=== PATIENT | male | born 1965 | race Caucasian/White ===

== ENCOUNTER 2019-04-20 13:27 | Inpatient (IN) | payer SELFPAY ==
[2019-04-20] VITALS (36 sets, daily range): BP systolic 104–160; BP diastolic 70–95; PULSE 52–62; RESP 16–18; TEMP 36.7–36.8; O2SAT 95–100
--- NOTE | 2019-04-20 13:49 | DI.CT_ITS ---
SYMPTOMS/DIAGNOSIS: LEFT LOWER ABDOMINAL PAIN CT OF THE ABDOMEN AND PELVIS: There are no prior comparison exams. Images were performed from the lung bases through the ischial tuberosities after IV and without oral contrast. There is a peripherally enhancing low density collection within the wall of the rectum, suspicious for a small abscess. It measures approximately 1.4 x 1.0 x 1 cm. It is eccentric toward the left. There are diverticula in the sigmoid colon, but no evidence of diverticulitis. The appendix is unremarkable. There is no small or large bowel dilatation. There is no free air or free fluid. No adenopathy is seen. There is calcification in the prostate, which appears slightly enlarged. The bladder is unremarkable. The lung bases are clear. The liver, gallbladder, spleen, pancreas, adrenals and kidneys appear normal. There is some calcification in the abdominal aorta, which is normal in diameter. There are old fracture deformities seen in the pubic rami bilaterally. Degenerative changes are seen in the spine, greatest at L5-S1. IMPRESSION: Intramural abscess of the rectum.
--- NOTE | 2019-04-20 13:51 | W.ED.GENAD ---
Discharge Plan Disposition Patient Disposition: [facility] INPATIENT Condition: Stable Discharge Details Chief Complaint: GenMedical Clinical Impression: Abdominal abscess Primary Care Provider: None,None ED Provider: Sree Conley Medical Decision Making 53 yo male who denies chronic medical problems comes in with complaints of abdominal pain. he states he started with a stomach ache Thursday morning. Has had a mild headache since and the pain in his abdomen has moved to the llq. Intermittent nausea as well. Denies fevers or vomit. He has painin the llq without guarding or rebound on exam, no pain elsewhere. Suspect colitis vs diverticulitis, will obtain lab work vs imaging. He states his headache is mild, inermittently will slowly worsen but not worse of his life so unlikely sah so do not feel head imaging indicated. No fevers or meinigismus to suggest qa analyst infection at this time. normal eye exam so doubt glaucoma labs unremarkable, does have an abscess on CT. Spoke [facility] Dr. Lopez who will admit the patient Differential Diagnosis gastroenteritis, colitis, diverticulitis Medical Records Medical records reviewed: Yes I reviewed the patient's medical records. Imaging Data Radiologic Study: Attestation: I personally reviewed and interpreted this imaging study as follows: Imaging: CT Scan Radiologist's impression: T OF THE ABDOMEN AND PELVIS: There are no prior comparison exams. Images were performed from the lung bases through the ischial tuberosities after IV and without oral contrast. There is a peripherally enhancing low density collection within the wall of the rectum, suspicious for a small abscess. It measures approximately 1.4 x 1.0 x 1 cm. It is eccentric toward the left. There are diverticula in the sigmoid colon, but no evidence of diverticulitis. The appendix is unremarkable. There is no small or large bowel dilatation. There is no free air or free fluid. No adenopathy is seen. There is calcification in the prostate, which appears slightly enlarged. The bladder is unremarkable. The lung bases are clear. The liver, gallbladder, spleen, pancreas, adrenals and kidneys appear normal. There is some calcification in the abdominal aorta, which is normal in diameter. There are old fracture deformities seen in the pubic rami bilaterally. Degenerative changes are seen in the spine, greatest at L5-S1. IMPRESSION: Intramural abscess of the rectum. Lab Data Lab results reviewed: Yes I reviewed the patient's lab results. HPI General Mode of arrival: ambulatory. Date/Time Provider Initiated Documentation: 04/20/19 13:37. Limitations to Documentation: no limitations. Information obtained by: patient. History of Present Illness 53 year old M presents to the emergency department with the chief complaint of abdominal pain, described as moderate, with intensity rated at 5. Quality is described as stabbing and aching, and is localized to the abdomen. Patient reports no radiation. Patient started experiencing this day(s) (3) and it has been constant. No relieving factors improve symptom(s), No exacerbating factors reported . Patient notes other (nausea). Patient did receive the following treatments prior to arrival, NSAID Related Data Allergies Allergy/AdvReac Type Severity Reaction Status Date / Time No Known Allergies Allergy Unverified 04/20/19 13:37 General Stated Complaint: GenMedical FRANK: 3 Review of Systems Review of Systems All systems reviewed & are unremarkable except as noted in HPI and below Constitutional Denies chills, Denies fever(s) and Denies weakness Cardiovascular Denies chest pain and Denies dyspnea Respiratory Denies cough and Denies dyspnea Gastrointestinal Denies vomiting Genitourinary Denies dysuria Neurologic Denies weakness PFSH Social History Smoking/Tobacco Use Status: Current every day Tobacco Type: cigarettes Alcohol Intake: current Alcohol Intake frequency: a few times a week Alcohol type: beer Drug use: Never Do you feel safe at home: Yes Exam Const General: no acute distress Orientation: alert HENMT Head: normal to inspection Ears: external ears normal General nose exam: external nose normal Mouth: moist mucous membranes Eyes General: appearance normal, both eyes and all related structures Neck Neck: normal visual inspection Resp Effort & Inspection: normal respiratory effort and able to speak in complete sentences Cardio Rate: regular rate GI Palpation: soft Skin General skin exam: no rashes or lesions noted Neuro General: alert and oriented x3 Extrem General: normal to inspection Psych Mental Status: mental status grossly normal Course Vital Signs Temperature 36.7 C 04/20/19 13:32 Pulse 62 04/20/19 13:32 Respiratory Rate 18 04/20/19 13:32 Blood Pressure 160/95 H 04/20/19 13:32 Pulse Oximetry 98 04/20/19 13:32 Temperature 36.7 C 04/20/19 13:32 Temperature Source Skin 04/20/19 13:32 Pulse 62 04/20/19 13:32 Respiratory Rate 18 04/20/19 13:32 Respiratory Effort Non-Labored 04/20/19 13:38 Blood Pressure 160/95 H 04/20/19 13:32 Blood Pressure Position Supine 04/20/19 13:32 Pulse Oximetry 98 04/20/19 13:32 Oxygen Delivery Method Room Air 04/20/19 13:32 Oxygen Flow Rate 0 04/20/19 13:32 Pain Level 4 04/20/19 13:32
--- NOTE | 2019-04-20 13:55 | ED.GENADUL_ITS ---
Discharge Plan Disposition Patient Disposition: [facility] INPATIENT Condition: Stable Discharge Details Chief Complaint: GenMedical Clinical Impression: Abdominal abscess Primary Care Provider: None,None ED Provider: Sree Conley Medical Decision Making 53 yo male who denies chronic medical problems comes in with complaints of abdominal pain. he states he started with a stomach ache Thursday morning. Has had a mild headache since and the pain in his abdomen has moved to the llq. Intermittent nausea as well. Denies fevers or vomit. He has painin the llq without guarding or rebound on exam, no pain elsewhere. Suspect colitis vs diverticulitis, will obtain lab work vs imaging. He states his headache is mild, inermittently will slowly worsen but not worse of his life so unlikely sah so do not feel head imaging indicated. No fevers or meinigismus to suggest big data platform architect infection at this time. normal eye exam so doubt glaucoma labs unremarkable, does have an abscess on CT. Spoke [facility] Dr. Lopez who will admit the patient Differential Diagnosis gastroenteritis, colitis, diverticulitis Medical Records Medical records reviewed: Yes I reviewed the patient's medical records. Imaging Data Radiologic Study: Attestation: I personally reviewed and interpreted this imaging study as follows: Imaging: CT Scan Radiologist's impression: T OF THE ABDOMEN AND PELVIS: There are no prior comparison exams. Images were performed from the lung bases through the ischial tuberosities after IV and without oral contrast. There is a peripherally enhancing low density collection within the wall of the rectum, suspicious for a small abscess. It measures approximately 1.4 x 1.0 x 1 cm. It is eccentric toward the left. There are diverticula in the sigmoid colon, but no evidence of diverticulitis. The appendix is unremarkable. There is no small or large bowel dilatation. There is no free air or free fluid. No adenopathy is seen. There is calcification in the prostate, which appears slightly enlarged. The bladder is unremarkable. The lung bases are clear. The liver, gallbladder, spleen, pancreas, adrenals and kidneys appear normal. There is some calcification in the abdominal aorta, which is normal in diameter. There are old fracture deformities seen in the pubic rami bilaterally. Degenerative changes are seen in the spine, greatest at L5-S1. IMPRESSION: Intramural abscess of the rectum. Lab Data Lab results reviewed: Yes I reviewed the patient's lab results. HPI General Mode of arrival: ambulatory . Date/Time Provider Initiated Documentation: 04/20/19 13:37 . Limitations to Documentation: no limitations . Information obtained by: patient . History of Present Illness 53 year old M presents to the emergency department with the chief complaint of abdominal pain, described as moderate, with intensity rated at 5. Quality is described as stabbing and aching, and is localized to the abdomen. Patient reports no radiation. Patient started experiencing this day(s) (3) and it has been constant. No relieving factors improve symptom(s), No exacerbating factors reported . Patient notes other (nausea). Patient did receive the following treatments prior to arrival, NSAID Related Data Allergies Allergy/AdvReac Type Severity Reaction Status Date / Time No Known Allergies Allergy Unverified 04/20/19 13:37 General Stated Complaint: GenMedical FRANK: 3 Review of Systems Review of Systems All systems reviewed & are unremarkable except as noted in HPI and below Constitutional Denies chills, Denies fever(s) and Denies weakness Cardiovascular Denies chest pain and Denies dyspnea Respiratory Denies cough and Denies dyspnea Gastrointestinal Denies vomiting Genitourinary Denies dysuria Neurologic Denies weakness PFSH Social History Smoking/Tobacco Use Status: Current every day Tobacco Type: cigarettes Alcohol Intake: current Alcohol Intake frequency: a few times a week Alcohol type: beer Drug use: Never Do you feel safe at home: Yes Exam Const General: no acute distress Orientation: alert HENMT Head: normal to inspection Ears: external ears normal General nose exam: external nose normal Mouth: moist mucous membranes Eyes General: appearance normal, both eyes and all related structures Neck Neck: normal visual inspection Resp Effort & Inspection: normal respiratory effort and able to speak in complete sentences Cardio Rate: regular rate GI Palpation: soft Skin General skin exam: no rashes or lesions noted Neuro General: alert and oriented x3 Extrem General: normal to inspection Psych Mental Status: mental status grossly normal Course Vital Signs Temperature 36.7 C 04/20/19 13:32 Pulse 62 04/20/19 13:32 Respiratory Rate 18 04/20/19 13:32 Blood Pressure 160/95 H 04/20/19 13:32 Pulse Oximetry 98 04/20/19 13:32 Temperature 36.7 C 04/20/19 13:32 Temperature Source Skin 04/20/19 13:32 Pulse 62 04/20/19 13:32 Respiratory Rate 18 04/20/19 13:32 Respiratory Effort Non-Labored 04/20/19 13:38 Blood Pressure 160/95 H 04/20/19 13:32 Blood Pressure Position Supine 04/20/19 13:32 Pulse Oximetry 98 04/20/19 13:32 Oxygen Delivery Method Room Air 04/20/19 13:32 Oxygen Flow Rate 0 04/20/19 13:32 Pain Level 4 04/20/19 13:32
[2019-04-20] MEDS: Ondansetron 4 MG/2 ML VIAL IVP (14:15)
[2019-04-20] MEDS: Ketorolac 15 MG/ML VIAL IVP (14:15)
[2019-04-20] MEDS: Normal Saline 1,000 ML 1000 ML IV (14:17)
[2019-04-20 14:21] LABS: Abs Immature Grans 0.01 k/cumm (0.0-0.09); Absolute Basophil Count 0.02 k/cumm (0.0-0.2); Absolute Lymphocyte Count 2.12 k/cumm (1.2-3.4); Absolute Monocyte Count 0.49 k/cumm (0.11-0.7); Basophils % 0.3; HCT 46.3 % (40.0-50.0); HGB 15.8 g/dL (13.5-17.5); Immature Grans % 0.1; Lymphocytes % 31.5; Mean Corp. HGB Concentration 34.1 g/dL (32.0-36.0); Mean Corpuscular Hemoglobin 32.2 pg (27.0-33.0); Mean Corpuscular Volume 94.3 fL (80-95); Mean Platelet Volume 9.7 fL (8.0-11.0); Monocytes % 7.3; Neutrophils % 57.8; Platelet Count 211 x1000/uL (130-400); RBC 4.91 m/cumm (4.50-6.00); White Blood Cell Count 6.74 k/cumm (4.4-10.8)
[2019-04-20 14:34] LABS: ALT 43 U/L (12-78); AST 27 U/L (15-37); Albumin 3.9 g/dL (3.4-5.0); Alkaline Phosphatase 104 U/L (46-116); Anion Gap 9.8 mmol/L (3-11); BUN 11 mg/dL (7-18); Bilirubin, Total 0.5 mg/dL (0.2-1.0); CO2 29.2 mmol/L (21.0-32.0); CREATININE 0.91 mg/dL (0.70-1.30); Calcium 9.2 mg/dL (8.5-10.1); Chloride 98 mmol/L (98-107); Glucose 97 mg/dL (70-100); Lipase 147 U/L (73-393); Potassium 3.9 mmol/L (3.5-5.1); Sodium 137 mmol/L (136-145); Total Protein 8.1 g/dL (6.4-8.2)
[2019-04-20] MEDS: Omnipaque 350 MG/ML 100 ML BTL IJ (14:46)
[2019-04-20 15:35] LABS: Bilirubin Negative (Negative); Blood Negative (Negative); Clarity Clear; Glucose Negative (Negative); Ketones Negative (Negative); Leukocyte Esterase Negative (Negative); Nitrite Negative (Negative); Specific Gravity <= 1.005 (1.005-1.025); Urobilinogen 0.2 EU/dL (Up TO 0.2)
[2019-04-20] MEDS: PIPERACILLIN/TAZO 4.5 GM in Normal Saline 100 ML IVPB (16:20)
--- NOTE | 2019-04-20 16:22 | W.PM.HP.N ---
Date of service: 04/20/19 Time of Service: 16:22 Assessment and Plan (1) Abscess of rectum: Current visit: Yes Status: Acute A\\ Small intramural abscess of distal sigmoid/ proximal rectum. Minimal inflammation and no free air. P\\ Admit for IV antibiotics and pain control Diet: Clear liquids over night then will advance to low fiber diet Activity: up ad elie DVT prophilaxis: SCD's Patient has never had a colonoscopy. Will need a colonoscopy in 6-8 weeks History of Present Illness Chief Complaint: ABdominal pain Consults Consult date: 04/20/19 Requesting physician: Sree Conley Narrative: Mr. Langford is a 53-year-old gentleman who came to the emergency department today complaining of left lower quadrant abdominal pain. He states the pain started about 3 days ago. He rates the pain at a 5 out of 10. It is dull with sometimes some stabbing pain. He has not had any diarrhea or constipation. He has had some nausea but no vomiting. He denies any fevers or chills. He is never had pain like this before. Work-up in the emergency department showed a normal CBC. His vitals were stable and he is afebrile. CT scan of the abdomen and pelvis was ordered. It was read as small rectal intramural abscess measuring 1.5 cm. Diverticulosis is noted without inflammation. I have reviewed the CT scan myself and I see the small abscess in the distal sigmoid colon/ rectum. There is no free air. CT ABDO/PELVIS: There are no prior comparison exams. Images were performed from the lung bases through the ischial tuberosities after IV and without oral contrast. There is a peripherally enhancing low density collection within the wall of the rectum, suspicious for a small abscess. It measures approximately 1.4 x 1.0 x 1 cm. It is eccentric toward the left. There are diverticula in the sigmoid colon, but no evidence of diverticulitis. The appendix is unremarkable. There is no small or large bowel dilatation. There is no free air or free fluid. No adenopathy is seen. There is calcification in the prostate, which appears slightly enlarged. The bladder is unremarkable. The lung bases are clear. The liver, gallbladder, spleen, pancreas, adrenals and kidneys appear normal. There is some calcification in the abdominal aorta, which is normal in diameter. There are old fracture deformities seen in the pubic rami bilaterally. Degenerative changes are seen in the spine, greatest at L5-S1. IMPRESSION: Intramural abscess of the rectum. Review of Systems Constitutional Denies fatigue, Denies fever(s), Denies headache(s) and Denies night sweats Eyes Denies change in vision ENT Denies headache(s) Cardiovascular Denies chest pain, Denies chest pain at rest, Denies rapid heart rate, Denies irregular heart rhythm, Denies claudication, Denies palpitations, Denies dyspnea and Denies dyspnea on exertion Respiratory Denies cough, Denies dyspnea and Denies dyspnea on exertion Gastrointestinal Reports as per HPI Genitourinary Denies hematuria and Denies dysuria Musculoskeletal Denies back pain and Denies limited range of motion Neurologic Denies headache(s) and Denies convulsions Endocrine Reports cold intolerance, Denies fatigue, Denies heat intolerance and Denies palpitations Hematologic/Lymphatic Denies easy bleeding, Denies easy bruising and Denies lymphadenopathy PFSH Medical History Abscess of rectum (Acute) Surgical History History of back surgery (Acute) Social History Smoking/Tobacco Use Status: Current every day Tobacco Type: cigarettes Smoking packs per day: 1 Alcohol Intake: current Alcohol Intake frequency: a few times a week Alcohol type: beer Drug use: Never Do you feel safe at home: Yes Meds Allergies Allergy/AdvReac Type Severity Reaction Status Date / Time No Known Allergies Allergy Unverified 04/20/19 13:37 Exam Const General: cooperative, comfortable and no acute distress Orientation: alert and oriented x3 HENMT Head: normocephalic and atraumatic Mouth: oral mucosae normal Teeth and gingiva: poor dentition Eyes Pupils: PERRL Neck Neck: supple Lymphatic: no lymphadenopathy noted Resp Effort & Inspection: normal respiratory effort Auscultation: clear to auscultation bilaterally Cardio Rate: regular rate Rhythm: regular rhythm Heart Sounds: no gallops, no murmurs and no rubs GI Inspection: normal to inspection Palpation: soft, no hepatosplenomegaly and tender (mild LLQ and suprapubic. No rebound or guarding) Rectal Exam: deferred Extrem General: no clubbing, cyanosis or edema Results Labs : 04/20/19 13:55 04/20/19 13:55 Laboratory Results - last 24 hr 04/20/19 04/20/19 04/20/19 13:55 13:55 15:21 WBC 6.74 RBC 4.91 Hgb 15.8 Hct 46.3 MCV 94.3 MCH 32.2 MCHC 34.1 RDW 13.0 Plt Count 211 MPV 9.7 Immature Gran % 0.1 Neutrophils % 57.8 Lymphocytes % 31.5 Monocytes % 7.3 Eosinophils % 3.0 Basophils % 0.3 Absolute Neutrophils 3.90 Absolute Lymphocytes 2.12 Absolute Monocytes 0.49 Absolute Eosinophils 0.20 Absolute Basophils 0.02 Sodium 137 Potassium 3.9 Chloride 98 Carbon Dioxide 29.2 Anion Gap 9.8 BUN 11 Creatinine 0.91 Estimated GFR/1.73 m2 >= 60.00 Glucose 97 Calcium 9.2 Total Bilirubin 0.5 AST 27 ALT 43 Alkaline Phosphatase 104 Total Protein 8.1 Albumin 3.9 Lipase 147 Urine Color Yellow Urine Clarity Clear Urine pH 6.0 Ur Specific [place] <= 1.005 Urine Protein Negative Urine Ketones Negative Urine Blood Negative Urine Nitrite Negative Urine Bilirubin Negative Urine Urobilinogen 0.2 Ur Leukocyte Esterase Negative Urine Glucose Negative Last Vital Signs Temp 98.1 F 04/20/19 13:32 Pulse 55 L 04/20/19 14:31 Resp 18 04/20/19 13:32 BP 138/90 04/20/19 14:31 Pulse Ox 99 04/20/19 14:31
[2019-04-20] MEDS: Lactated Ringers 1,000 ML 80 ML IV (18:39)
[2019-04-20] MEDS: Docusate Sodium 100 MG CAP PO (19:55)
[2019-04-20] MEDS: PIPERACILLIN/TAZO 3.375 GM in Normal Saline 50 ML IVPB (22:05)
[2019-04-20] MEDS: Normal Saline Flush 10 ML SYR IVP (22:06)
[2019-04-20] MEDS: Ketorolac 30 MG/ML VIAL IVP (23:03)
[2019-04-21] MEDS: PIPERACILLIN/TAZO 3.375 GM in Normal Saline 50 ML IVPB ×4 (04:14→21:31)
[2019-04-21 07:03] LABS: Abs Immature Grans 0.01 k/cumm (0.0-0.09); Absolute Basophil Count 0.03 k/cumm (0.0-0.2); Absolute Eosinophil Count 0.21 k/cumm (0.0-0.7); Absolute Lymphocyte Count 1.85 k/cumm (1.2-3.4); Absolute Monocyte Count 0.42 k/cumm (0.11-0.7); Basophils % 0.5; Eosinophils % 3.7; HCT 41.4 % (40.0-50.0); Immature Grans % 0.2; Lymphocytes % 32.3; Mean Corp. HGB Concentration 33.8 g/dL (32.0-36.0); Mean Corpuscular Hemoglobin 32.3 pg (27.0-33.0); Mean Corpuscular Volume 95.4 fL (80-95); Monocytes % 7.3; Platelet Count 189 x1000/uL (130-400); RBC 4.34 m/cumm (4.50-6.00); RBC Distribution Width 12.7 % (11.8-14.1); White Blood Cell Count 5.72 k/cumm (4.4-10.8)
[2019-04-21] MEDS: Docusate Sodium 100 MG CAP PO ×3 (07:51→19:32)
[2019-04-21] MEDS: Lactated Ringers 1,000 ML 80 ML IV (07:52)
[2019-04-21] MEDS: Ketorolac 30 MG/ML VIAL IVP (08:08)
[2019-04-21 08:50] VITALS: BP 115/75; PULSE 69; RESP 17; TEMP 36.8; O2SAT 98
--- NOTE | 2019-04-21 08:58 | INITIAL_ITS ---
- If Service Date Differs Date of service: 04/21/19 Time of Service: 08:57 Care Management Initial Assess REASON FOR HOSPITALIZATION:: Intramural Abscess PAST MEDICAL HISTORY/PAST SURGICAL HISTORY:: Back surgery. PREVIOUS FUNCTIONAL STATUS/SOCIAL/FAMILY SUPPORTS:: Virgil lives at a friends home in [place], [place]. He started working at [employer] about 3 weeks ago. He states he works fulltime he has a daughter that is local and supportive. Virgil is independent at baseline. 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 His plan for the summer is to live in his camper that he has winterized. CURRENT FUNCTIONAL STATUS:: Virgil is sitting on the side of the bed he is alert and engaged. CM discussed with the patient options for insurance which he states will be acitve in three weeks through his employer. CM did provide him with assistance applicaiton he will complete and return to the hospital. Virgil believes he can afford his antibiotics when he is discharged. ADVANCE DIRECTIVES:: None on file declines at this time Has patient been provided with information about the portal?: Yes Did the patient sign up for the portal?: No CODE STATUS:: Full Code INSURANCE COVERAGE / FINANCIAL ISSUES:: None will be acitve in three weeks through employer CM provided the Pt assistance applicaiton. CURRENT HOME/COMMUNITY SERVICES/EQUIPMENT:: None PRIMARY CARE PHYSICIAN:: [facility] he has not been there in about 5 years. CM faxed a referral requesting they schedule follow up with the patient to schedule appointment. POTENTIAL DISCHARGE NEEDS:: Follow up with provider scheduled prior to d ischarge. PATIENT/FAMILY EDUCATION NEEDS:: Dishcarge education, limitations and follow up plan of care including ask me three and self management. ANTICIPATED BARRIERS TO DISCHARGE:: Virgil does not have prescription coverage will need to verify cost of antibiotic prior to discharge. TRANSPORTATION:: Via private car with friend Ed. PLAN:: Virgil is receive IV pain control, antibiotics and supportive care. Anticipate he will transition to oral medications when appropiate and be discharged home.CM will make referrals to [facility] for assistance with insurance.
[2019-04-21 11:50] VITALS: BP 106/69; PULSE 64; RESP 18; TEMP 36.6; O2SAT 99
--- NOTE | 2019-04-21 15:02 | CHAPLAIN ---
Virgil was sitting up in his bed when I visited. He said he is mostly bored. He is waiting for some test results and to speak with the hospitalist. He expects his daughter will visit after she is done work and she was looking forward to this.
[2019-04-21] MEDS: Nicotine 14 MG/24 HR PATCH TD (15:47)
[2019-04-21] MEDS: Normal Saline Flush 10 ML SYR IVP (15:48)
[2019-04-21 16:15] VITALS: BP 132/82; PULSE 58; RESP 18; TEMP 35.9; O2SAT 100
--- NOTE | 2019-04-21 21:34 | PGE_ITS ---
Date of Service Date of service: 04/21/19 Time of Service: 21:32 Assessment and Plan (1) Abscess of rectum: Current visit: Yes Status: Acute pt does have Hx of constipation and straining no had a CE feels better today- still some pain keep in hosp on IV abx. try low fiber diet and see how it goes. poss d/c home in am Subjective Interval history since last seen: Pt is doing well. no headaches. No CP or SOB. no productive cough. no dysuria. no leg pain or swelling. Pt is doing better- has less pain, but still having pain. had a bm today- soft. no fevers. + hungry. abdom is soft. Exam Const General: cooperative, healthy appearing, comfortable, no acute distress, well developed and well groomed Nutritional Appearance: average body habitus and well nourished Orientation: alert, awake and oriented x3 HENMT Head: normal to inspection, normocephalic and atraumatic Ears: hearing grossly normal bilaterally and external ears normal General nose exam: external nose normal Face and sinus: normal facial exam and sinuses nontender Mouth: oral mucosae normal, lip normal, tongue normal and moist mucous membranes Teeth and gingiva: fair dentition Eyes General: appearance normal, both eyes and all related structures Conjunctivae: conjunctivae normal Sclera: sclerae normal Pupils: PERRL Neck Neck: normal visual inspection and full ROM Chest Chest: normal inspection of the chest Resp Effort & Inspection: normal respiratory effort, able to speak in complete sentences, no cough, no nasal flaring, not tachypneic and no use of accessory muscles Auscultation: clear to auscultation bilaterally, no rales, no rhonchi and no wheezes Cardio Jugular venous pressure: no JVD Rate: regular rate Rhythm: regular rhythm GI Inspection: normal to inspection, no edema and non-distended Palpation: soft, no masses, tender and No ascites Auscultation: normal bowel sounds Other: good bs Skin General skin exam: no rashes or lesions noted Trauma: no lacerations or abrasions Neuro General: alert, oriented x3, oriented, gait normal, moves all extremities, no focal motor deficits and CN's II-XI intact bilaterally Cognition: normal cognition Speech: speech normal Gait: normal gait Motor: muscle tone normal throughout Extrem General: normal to inspection, full ROM and no clubbing, cyanosis or edema Psych Appearance: grossly normal and well kempt Mental Status: mental status grossly normal Speech and Movement: speech and movement normal Affect: normal affect Objective Objective Clinical Data: Abnormal lab results 04/21/19 Range/Units 06:15 RBC 4.34 L (4.50-6.00) m/cumm MCV 95.4 H (80-95) fL Vital Signs Temperature 35.9 C L 04/21/19 16:15 Temperature Source Tympanic 04/21/19 16:15 Pulse 58 L 04/21/19 16:15 Pulse Rhythm Regular 04/21/19 16:45 Respiratory Rate 18 04/21/19 16:15 Respiratory Effort Non-Labored 04/21/19 16:45 Respiratory Depth Normal 04/21/19 16:45 Respiratory Pattern Normal 04/21/19 16:45 Blood Pressure 132/82 04/21/19 16:15 Blood Pressure Mean 90 04/20/19 17:31 Blood Pressure Position Supine 04/20/19 13:32 Pulse Oximetry 100 04/21/19 16:15 Oxygen Delivery Method Room Air 04/21/19 16:15 Oxygen Flow Rate 0 04/21/19 16:15 Pain Level 0 04/21/19 11:50 Intake & Output 04/20/19 04/21/19 04/21/19 23:59 11:59 23:59 Intake Total 315 / 315 2840.667 / 3670.667 830 / 3670.667 Output Total 300 / 300 300 / 300 Balance 2840.667 / 3370.667 530 / 3370.667 Weight 82.6 kg Intake: IV 315 / 315 1760.667 / 1810.667 50 / 1810.667 Oral 1080 / 1860 780 / 1860 Output: Urine 300 / 300 300 / 300 Other: Urine Color Yellow Yellow Urine Appearance Clear Clear Stool Size Moderate Stool Characteristics Soft Brown Voiding Methods Toilet Toilet Laboratory Results WBC 5.72 k/cumm (4.4-10.8) 04/21/19 06:15 RBC 4.34 m/cumm (4.50-6.00) L 04/21/19 06:15 Hgb 14.0 g/dL (13.5-17.5) 04/21/19 06:15 Hct 41.4 % (40.0-50.0) 04/21/19 06:15 MCV 95.4 fL (80-95) H 04/21/19 06:15 MCH 32.3 pg (27.0-33.0) 04/21/19 06:15 MCHC 33.8 g/dL (32.0-36.0) 04/21/19 06:15 RDW 12.7 % (11.8-14.1) 04/21/19 06:15 Plt Count 189 x1000/uL (130-400) 04/21/19 06:15 MPV 10.0 fL (8.0-11.0) 04/21/19 06:15 Immature Gran % 0.2 04/21/19 06:15 Neutrophils % 56.0 04/21/19 06:15 Lymphocytes % 32.3 04/21/19 06:15 Monocytes % 7.3 04/21/19 06:15 Eosinophils % 3.7 04/21/19 06:15 Basophils % 0.5 04/21/19 06:15 Absolute Neutrophils 3.20 k/cumm (1.2-6.7) 04/21/19 06:15 Absolute Lymphocytes 1.85 k/cumm (1.2-3.4) 04/21/19 06:15 Absolute Monocytes 0.42 k/cumm (0.11-0.7) 04/21/19 06:15 Absolute Eosinophils 0.21 k/cumm (0.0-0.7) 04/21/19 06:15 Absolute Basophils 0.03 k/cumm (0.0-0.2) 04/21/19 06:15 Sodium 137 mmol/L (136-145) 04/20/19 13:55 Potassium 3.9 mmol/L (3.5-5.1) 04/20/19 13:55 Chloride 98 mmol/L (98-107) 04/20/19 13:55 Carbon Dioxide 29.2 mmol/L (21.0-32.0) 04/20/19 13:55 Anion Gap 9.8 mmol/L (3-11) 04/20/19 13:55 BUN 11 mg/dL (7-18) 04/20/19 13:55 Creatinine 0.91 mg/dL (0.70-1.30) 04/20/19 13:55 Estimated GFR/1.73 m2 >= 60.00 (mL/min/1.73m2) 04/20/19 13:55 Glucose 97 mg/dL (70-100) 04/20/19 13:55 Calcium 9.2 mg/dL (8.5-10.1) 04/20/19 13:55 Total Bilirubin 0.5 mg/dL (0.2-1.0) 04/20/19 13:55 AST 27 U/L (15-37) 04/20/19 13:55 ALT 43 U/L (12-78) 04/20/19 13:55 Alkaline Phosphatase 104 U/L (46-116) 04/20/19 13:55 Total Protein 8.1 g/dL (6.4-8.2) 04/20/19 13:55 Albumin 3.9 g/dL (3.4-5.0) 04/20/19 13:55 Lipase 147 U/L (73-393) 04/20/19 13:55 Urine Color Yellow (Yellow) 04/20/19 15:21 Urine Clarity Clear 04/20/19 15:21 Urine pH 6.0 (5-8) 04/20/19 15:21 Ur Specific [place] <= 1.005 (1.005-1.025) 04/20/19 15:21 Urine Protein Negative mg/dL (Negative) 04/20/19 15:21 Urine Ketones Negative mg/dL (Negative) 04/20/19 15:21 Urine Blood Negative (Negative) 04/20/19 15:21 Urine Nitrite Negative (Negative) 04/20/19 15:21 Urine Bilirubin Negative (Negative) 04/20/19 15:21 Urine Urobilinogen 0.2 EU/dL (Up TO 0.2) 04/20/19 15:21 Ur Leukocyte Esterase Negative (Negative) 04/20/19 15:21 Urine Glucose Negative mg/dL (Negative) 04/20/19 15:21
[2019-04-22] MEDS: PIPERACILLIN/TAZO 3.375 GM in Normal Saline 50 ML IVPB ×2 (03:27→10:39)
[2019-04-22 07:10] LABS: Abs Immature Grans 0.01 k/cumm (0.0-0.09); Absolute Basophil Count 0.03 k/cumm (0.0-0.2); Absolute Eosinophil Count 0.22 k/cumm (0.0-0.7); Absolute Lymphocyte Count 2.02 k/cumm (1.2-3.4); Absolute Monocyte Count 0.51 k/cumm (0.11-0.7); Basophils % 0.5; Eosinophils % 3.4; HCT 42.1 % (40.0-50.0); HGB 14.1 g/dL (13.5-17.5); Immature Grans % 0.2; Lymphocytes % 31.6; Mean Corp. HGB Concentration 33.5 g/dL (32.0-36.0); Mean Corpuscular Hemoglobin 32.1 pg (27.0-33.0); Mean Corpuscular Volume 95.9 fL (80-95); Mean Platelet Volume 9.7 fL (8.0-11.0); Neutrophils % 56.3; Platelet Count 183 x1000/uL (130-400); RBC 4.39 m/cumm (4.50-6.00); RBC Distribution Width 12.9 % (11.8-14.1); White Blood Cell Count 6.39 k/cumm (4.4-10.8)
[2019-04-22 07:18] VITALS: BP 124/74; PULSE 58; RESP 18; TEMP 36; O2SAT 98
[2019-04-22 07:22] LABS: C-Reactive Protein < 0.05 mg/dL (0.0-0.3)
[2019-04-22] MEDS: Docusate Sodium 100 MG CAP PO ×2 (07:39→14:28)
[2019-04-22] MEDS: Nicotine 14 MG/24 HR PATCH TD (07:40)
[2019-04-22] MEDS: Normal Saline Flush 10 ML SYR IVP (10:40)
--- NOTE | 2019-04-22 12:33 | DSE_ITS ---
Date of service: 04/22/19 Time of Service: 12:29 DS: Diagnosis Discharge Diagnosis (1) Colonic diverticular abscess: Status: Acute Discharge Plan Disposition Patient Disposition: HOME Condition: Stable Discharge Details Reason For Visit: INTRAMURAL ABSCESS Admit Date/Time: 04/20/19 16:34 Admit Provider: Aishwarya Shen Attending Provider: Aishwarya Shen Primary Care Provider: Mariola Newsome [facility] Course Hospital Course: Mr. Langford is a 53-year-old gentleman who came to the emergency department on 04/20/19 complaining of left lower quadrant abdominal pain. He states the pain started about 3 days ago. He rates the pain at a 5 out of 10. It is dull with sometimes some stabbing pain. He has not had any diarrhea or constipation. He has had some nausea but no vomiting. He denies any fevers or chills. He is never had pain like this before. Work-up in the emergency department showed a normal CBC. His vitals were stable and he is afebrile. CT scan of the abdomen and pelvis was ordered. It was read as small rectal intramural abscess measuring 1.5 cm. Diverticulosis is noted without inflammation. I have reviewed the CT scan myself and I see the small abscess in the distal sigmoid colon/ rectum. There is no free air. Mr. Langford was admitted for IV antibiotics. he was started on Clear liquids. He had a good night and the next day he had 2 normal soft BM's. His diet was advanced to a low fiber diet that evening. On 04/22 he had a soft, low fiber diet again for breakfast and had lunch. His WBC count continued to be normal and he had only pressure in the left lower quadrant. Patient will be discharged home on Antibiotics for another 12 days, low fiber diet and I will see him in Follow up in 3 weeks. At that follow up visit we will discuss a colonoscopy. Home Meds and New Rx's Prescriptions: New amoxicillin-pot clavulanate [Augmentin] 875-125 mg tablet 1 tab PO BID Qty: 24 RF: 0 Discharge Instructions Instructions: Low Fiber Diet (DC) Additional Instructions: Activity at Home after surgery: As tolerated Diet, Nutrition, & wound healing: Follow a low fiber diet until you see me in the office Pain Medications: Take Tylenol or ibuprofen for pain as needed For Constipation: 1. Take Milk of Magnesia or MiraLax as needed for constipation Please call our office if you develop: 1. Fevers >101.5 2. Nausea or Vomiting 3. Worsening pain If after hours please call the Hospital at and ask to speak to the on-call surgeon Referrals: Aishwarya Shen MD [ [facility] STAFF PHYSICIAN] - 05/13/19 2:30 pm Activity:: Activity as Tolerated Equipment/Supplies:: No Equipment Needed Diet:: low fiber Discharge Orders Discharge Orders: Discharge Order (Routine); Ordered 04/22/19 Ordered By: Aishwarya Shen DS: Summary Time spent discussing smoking cessation with patient: 3 to 10 minutes Exam Resp Effort & Inspection: normal respiratory effort Auscultation: clear to auscultation bilaterally Cardio Rate: regular rate Rhythm: regular rhythm GI Inspection: normal to inspection Palpation: soft and nontender DS: Data Vitals/I&O Vitals and I&O: Vital Signs Temperature 96.8 F L 04/22/19 07:18 Temperature Source Tympanic 04/22/19 07:18 Pulse 58 L 04/22/19 07:18 Pulse Rhythm Regular 04/22/19 07:35 Respiratory Rate 18 04/22/19 07:18 Respiratory Effort Non-Labored 04/22/19 07:35 Respiratory Depth Normal 04/22/19 07:35 Respiratory Pattern Normal 04/22/19 07:35 Blood Pressure 124/74 04/22/19 07:18 Blood Pressure Mean 90 04/20/19 17:31 Blood Pressure Position Supine 04/20/19 13:32 Pulse Oximetry 98 04/22/19 07:18 Oxygen Delivery Method Room Air 04/22/19 07:18 Oxygen Flow Rate 0 04/22/19 07:18 Pain Level 0 04/21/19 11:50 Intake & Output 04/21/19 04/22/19 04/22/19 23:59 11:59 23:59 Intake Total 1739.333 / 4580.000 660 / 660 Output Total 300 / 300 Balance 1439.333 / 4280.000 660 / 660 Intake: IV 959.333 / 2720.000 110 / 110 Oral 780 / 1860 550 / 550 Output: Urine 300 / 300 Other: Urine Color Yellow Pale Yellow Urine Appearance Clear Urine Odor None Comment Voids indep in the toilet Stool Size Moderate Moderate Stool Characteristics Soft Soft Formed Formed Voiding Methods Toilet Toilet Labs on day of discharge: Labs from last 24 hours 04/22/19 04/22/19 07:00 07:00 WBC 6.39 RBC 4.39 L Hgb 14.1 Hct 42.1 MCV 95.9 H MCH 32.1 MCHC 33.5 RDW 12.9 Plt Count 183 MPV 9.7 Immature Gran % 0.2 Neutrophils % 56.3 Lymphocytes % 31.6 Monocytes % 8.0 Eosinophils % 3.4 Basophils % 0.5 Absolute Neutrophils 3.60 Absolute Lymphocytes 2.02 Absolute Monocytes 0.51 Absolute Eosinophils 0.22 Absolute Basophils 0.03 C-Reactive Protein < 0.05 PFSH Medical History Colonic diverticular abscess (Acute) Surgical History History of back surgery (Acute) Social History Smoking/Tobacco Use Status: Current every day Tobacco Type: cigarettes Alcohol Intake: current Alcohol Intake frequency: a few times a week Alcohol type: beer Drug use: Never Do you feel safe at home: Yes
--- NOTE | 2019-04-22 17:13 | PDOC.CMDIS ---
- If Service Date Differs Date of service: 04/22/19 Time of Service: 17:13 LACE Index Scoring Tool - Questions: Length of Stay (in days): 3 Acuity (Admit via E.D.?): Yes E.D. Visits: 2 - Answers: Total Score: 8 Risk of Readmission: Low Risk Care Management Discharge Reason for Hospitalization: Intramural Abscess Discharge Plan: Virgil is being discharged home today. CM reviewed plan with provider and discussed antibiotics and cost. Augmentin will be the oral antibioitc he is discharged home on. CM contacted [employer] in [place] and reviewed cost which is less than 30.00. Patient states he can afford the presciption. CM reviewed the applicaiton for [employer] assistance again prior to leaving he states he will complete and bring it back. Virgil is hopeful he can return to work on Thursday and was able to obtain a note for time missed. Virgil will follow up with in three weeks and schedule colonoscopy as directed. Patient/Family Education Needs: Discharge education, limitations including diet recomendation and review of medicaiton. Virgil states he feels comfortable going home and understands his discharge plan and instructions.
--- NOTE | 2019-04-22 17:18 | CMDISCH_ITS ---
- If Service Date Differs Date of service: 04/22/19 Time of Service: 17:13 LACE Index Scoring Tool - Questions: Length of Stay (in days): 3 Acuity (Admit via E.D.?): Yes E.D. Visits: 2 - Answers: Total Score: 8 Risk of Readmission: Low Risk Care Management Discharge Reason for Hospitalization: Intramural Abscess Discharge Plan: Virgil is being discharged home today. CM reviewed plan with provider and discussed antibiotics and cost. Augmentin will be the oral antibioitc he is discharged home on. CM contacted [employer] in [place] and reviewed cost which is less than 30.00. Patient states he can afford the presciption. CM reviewed the applicaiton for [employer] assistance again prior to leaving he states he will complete and bring it back. Virgil is hopeful he can return to work on Thursday and was able to obtain a note for time missed. Virgil will follow up with in three weeks and schedule colonoscopy as directed. Patient/Family Education Needs: Discharge education, limitations including diet recomendation and review of medicaiton. Virgil states he feels comfortable going home and understands his discharge plan and instructions.
== END 2019-04-22 15:03 | disposition home or self-care (01) | DRG 372 ==
LOC: ER 16:58 → MS 04-22 12:33
PROVIDERS: Surgery; Admitting Provider Surgery; Emergency Provider Emergency Medicine; PCP Physician Assistant Medical; Visit Provider Surgery
DX: K63.0 Abscess of intestine (principal); K61.1 Rectal abscess; F17.210 Nicotine dependence, cigarettes, uncomplicated
CPT/HCPCS: 36415; 80053; 83690; 99222; 99232; 99238; 99285; 74177; 81003; 85025; 86140; 99284; J1885; J2405; J2543; J3490

== ENCOUNTER 2019-05-25 09:59 | Emergency (ER) | payer SELFPAY ==
[2019-05-25] VITALS (8 sets, daily range): BP systolic 126–155; BP diastolic 85–104; PULSE 66–90; RESP 18; TEMP 37; O2SAT 95–99
--- NOTE | 2019-05-25 10:19 | ED.GENADUL_ITS ---
Discharge Plan Disposition Patient Disposition: HOME Condition: Stable Discharge Details Chief Complaint: Abd Prob Clinical Impression: Colitis Primary Care Provider: Aishwarya Shen ED Provider: Adolfo Gutierrez Home Meds and New Rx's Prescriptions: New amoxicillin-pot clavulanate 875-125 mg tablet 1 tab PO Q12H Qty: 28 RF: 0 Continued bisacodyl [Dulcolax (bisacodyl)] 5 mg tablet,delayed release (DR/EC) 5 mg PO ONCE Qty: 4 RF: 0 polyethylene glycol 3350 17 gram powder in packet 255 g PO DAILY Qty: 15 RF: 0 Discharge Instructions Instructions: Colitis (ED) Additional Instructions: Continue to stay well-hydrated and advance her diet as tolerated. Take medication as prescribed and follow-up with general surgery as already arranged for your colonoscopy or for any further questions. For any new or worsening symptoms feel free to return to the emergency department for emergent reevaluation and treatment as needed Stand Alone Forms: Work Release Referrals: Aishwarya Shen MD [Primary Care Provider] - (Keep your appointment as scheduled for follow-up with general surgery) Discharge Data Discharge Date/Time-TO BE ENTERED AT DEPARTURE: 05/25/19 13:44 Medical Decision Making Patient presenting to the emergency department for chief complaint of abdominal pain. Patient states that he has had this going on since the end of March where he was diagnosed with diverticulitis and abscess. Patient was admitted to Dr. Shen and was discharged on antibiotics. He states that he stopped those 2 weeks ago and followed up with her and was doing great until approximately 6 days ago. 6 days ago he had 2 days of diarrhea having more than 8 bowel movements a day with some blood noted. This seemed to resolve but the abdominal pain has continued. Patient denies any fever chills, vomiting. He does state persistent nausea and reduced appetite. Patient well in appearance nontoxic. Physical exam is unremarkable except for left lower quadrant tenderness, otherwise abdomen is soft, no distention, hypoactive bowel sounds, normal cardiac and respiratory exam. Plan to check labs and CT imaging. patient denies any need for pain medication at this time but given IV fluids and Zofran Review of labs show no leukocytosis, mildly elevated anion gap and lactate of 1.7 otherwise LFTs are within normal limits. CT scan was reviewed with radiologist and shows a diffuse colitis person enteritis but no specific findings to suggest diverticulitis, abscess, or perforation. I did call and speak with Dr. Shen general surgeon. With review of patient's previous admission to her service and upcoming colonoscopy in approximately 2 weeks she recommended 2 weeks of Augmentin prior to following up with her. Patient was placed upon this along with some Zofran to help with his nausea. Patient was able to tolerate p.o. intake pending discharge. Return precautions discussed. after discussion of diagnosis and plan of care patient is no further needs, questions, or concerns and states clear understanding to return to the emergency department for any worsening symptoms. HPI General Mode of arrival: ambulatory . Date/Time Provider Initiated Documentation: 05/25/19 10:01 . Limitations to Documentation: no limitations . Information obtained by: patient, RN notes reviewed and old records reviewed . History of Present Illness 53 year old M presents to the emergency department with the chief complaint of abd pain, nausea and vomitting, described as mild, with intensity rated at 3. Quality is described as aching, and is localized to the abdomen. Patient started experiencing this day(s) (6) and it has been constant and colicky. Patient did receive the following treatments prior to arrival, none Related Data Home Medications Medication Instructions Recorded Confirmed bisacodyl 5 mg tablet,delayed 5 mg PO ONCE #4 tab 05/13/19 05/25/19 release polyethylene glycol 3350 17 gram 255 g PO DAILY #15 each 05/13/19 05/25/19 oral powder packet amoxicillin-pot clavulanate 1 tab PO Q12H #28 tab 05/25/19 Previous Rx's Medication Instructions Recorded bisacodyl 5 mg tablet,delayed 5 mg PO ONCE #4 tab 05/13/19 release polyethylene glycol 3350 17 gram 255 g PO DAILY #15 each 05/13/19 oral powder packet amoxicillin-pot clavulanate 1 tab PO Q12H #28 tab 05/25/19 Allergies Allergy/AdvReac Type Severity Reaction Status Date / Time No Known Allergies Allergy Unverified 05/25/19 10:19 General Stated Complaint: Abd Prob FRANK: 3 Review of Systems Constitutional Denies chills, Denies fever(s) and Reports poor appetite Cardiovascular Denies chest pain and Denies dyspnea Respiratory Denies cough and Denies dyspnea Gastrointestinal Reports as per HPI, Reports abdominal pain, Denies melena, Denies change in bowel habits, Denies constipation, Denies diarrhea, Reports nausea and Denies vomiting Genitourinary Denies hematuria, Denies difficulty urinating, Denies urinary hesitancy, Denies urinary incontinence and Denies urinary urgency Integumentary/Breasts Denies rash [facility] Medical History Colonic diverticular abscess (Acute) Surgical History History of back surgery (Acute) Social History Smoking/Tobacco Use Status: Current every day Tobacco Type: cigarettes Alcohol Intake: current Alcohol Intake frequency: a few times a week Alcohol type: beer Drug use: Never Do you feel safe at home: Yes Exam Const General: cooperative Orientation: alert, awake and oriented x3 Resp Effort & Inspection: normal respiratory effort and able to speak in complete sentences Auscultation: clear to auscultation bilaterally Cardio Rate: regular rate Rhythm: regular rhythm Heart Sounds: S1 normal and S2 normal GI Palpation: soft, no hepatosplenomegaly, not firm, no guarding, no masses, no pulsatile masses, not rigid, no splenomegaly and tender in the LLQ; not at McBurney's point, Dorsey's sign negative and Rovsing's sign negative Auscultation: normal bowel sounds Back/Spine/Pelvis Back: no CVA tenderness Neuro General: alert, awake, oriented x3, gait normal and moves all extremities Course Vital Signs Temperature 37.0 C 05/25/19 10:12 Pulse 90 05/25/19 10:12 Respiratory Rate 18 05/25/19 10:12 Blood Pressure 155/104 H 05/25/19 10:12 Pulse Oximetry 97 05/25/19 10:12 Temperature 37.0 C 05/25/19 10:12 Temperature Source Skin 05/25/19 10:12 Pulse 90 05/25/19 10:12 Respiratory Rate 18 05/25/19 10:12 Blood Pressure 155/104 H 05/25/19 10:12 Blood Pressure Position Sitting 05/25/19 10:12 Pulse Oximetry 97 05/25/19 10:12 Oxygen Delivery Method Room Air 05/25/19 10:12 Oxygen Flow Rate 0 05/25/19 10:12
[2019-05-25] MEDS: Normal Saline 1,000 ML 1000 ML IV (10:20)
--- NOTE | 2019-05-25 10:25 | DI.CT_ITS ---
SYMPTOMS/DIAGNOSIS: ABD PAIN LLQ ABDOMINAL AND PELVIC CT: CT examination of the abdomen and pelvis was performed with a bolus infusion of 100 cc's of Omnipaque 350 and ingestion of dilute barium. Images obtained through the lung bases are unremarkable. The liver, spleen and pancreas appear normal. The gallbladder and bile ducts are CT normal. The abdominal aorta is of normal diameter. No major vascular abnormality seen. No abdominal or pelvic adenopathy seen. No significant abdominal wall hernia seen. The adrenals and kidneys are normal. No evidence of urinary tract obstruction. The appendix is normal. There is a question of mild wall thickening of descending colon and there is an area of significant wall thickening of the mid sigmoid colon. No gross pericolonic fat edema seen. No evidence of perforation or abscess. No evidence of obstruction. Note is also made of question of mild wall thickening of the distal duodenum and proximal jejunum. CONCLUSION: Findings raising the possibility of colitis or diverticulitis involving sigmoid and possibly descending colon. Possible enteritis duodenum/jejunum as well. Please correlate clinically.
[2019-05-25] MEDS: Omnipaque 350 MG/ML 50 ML BTL IJ (10:47)
[2019-05-25 10:56] LABS: Lactate 1.7 mmol/L (0.6-1.4)
[2019-05-25 10:57] LABS: Abs Immature Grans 0.02 k/cumm (0.0-0.09); Absolute Basophil Count 0.03 k/cumm (0.0-0.2); Absolute Eosinophil Count 0.11 k/cumm (0.0-0.7); Absolute Lymphocyte Count 1.87 k/cumm (1.2-3.4); Absolute Monocyte Count 0.52 k/cumm (0.11-0.7); Absolute Neutrophil Count 3.31 k/cumm (1.2-6.7); Basophils % 0.5; Eosinophils % 1.9; HCT 44.4 % (40.0-50.0); HGB 15.3 g/dL (13.5-17.5); Immature Grans % 0.3; Lymphocytes % 31.9; Mean Corp. HGB Concentration 34.5 g/dL (32.0-36.0); Mean Corpuscular Volume 95.7 fL (80-95); Mean Platelet Volume 9.3 fL (8.0-11.0); Monocytes % 8.9; Neutrophils % 56.5; Platelet Count 180 x1000/uL (130-400); RBC 4.64 m/cumm (4.50-6.00); RBC Distribution Width 14.4 % (11.8-14.1); White Blood Cell Count 5.86 k/cumm (4.4-10.8)
[2019-05-25 11:21] LABS: ALT 36 U/L (12-78); AST 33 U/L (15-37); Alkaline Phosphatase 100 U/L (46-116); Anion Gap 11.9 mmol/L (3-11); BUN 9 mg/dL (7-18); Bilirubin, Total 0.5 mg/dL (0.2-1.0); CO2 26.1 mmol/L (21.0-32.0); CREATININE 0.86 mg/dL (0.70-1.30); Chloride 102 mmol/L (98-107); Glucose 102 mg/dL (70-100); Lipase 140 U/L (73-393); Potassium 4.1 mmol/L (3.5-5.1); Sodium 140 mmol/L (136-145)
[2019-05-25 11:33] LABS: Bilirubin Negative (Negative); Blood Negative (Negative); Clarity Clear (Clear); Glucose Negative (Negative); Ketones Negative (Negative); Leukocyte Esterase Negative (Negative); Nitrite Negative (Negative); Urobilinogen 0.2 EU/dL (Up TO 0.2)
[2019-05-25 11:43] LABS: Bacteria Negative HPF (Negative); Casts Negative LPF (Negative); Crystals Negative HPF (Negative); Epithelial Cells Rare HPF (Negative); Mucus Trace (Negative); RBC Negative (0-2); WBC 0-2 HPF (0-5)
[2019-05-25 11:44] LABS: C & S Indicated? No
[2019-05-25] MEDS: Omnipaque 350 MG/ML 100 ML BTL IJ (11:46)
[2019-05-25] MEDS: Ondansetron O.D.T. 4 MG TABEF PO (13:00)
[2019-05-25 14:01] LABS: ESR 14 MM/HR (1-20)
[2019-05-25 19:34] LABS: C-Reactive Protein 0.06 mg/dL (0.0-0.3)
[2019-05-27 23:10] LABS: Saccharomyces cerevisiae IgA 13.1 U; Saccharomyces cervisiae IgG 23.8 U
== END 2019-05-25 13:44 | disposition home or self-care (01) ==
PROVIDERS: Emergency Provider Nurse Practitioner Family; PCP Surgery
DX: K52.9 Noninfective gastroenteritis and colitis, unspecified (principal)
CPT/HCPCS: 36415; 80053; 83690; 85652; 96360; 99285; 74177; 81003; 81015; 83605; 85025; 86140; 86255; 86671; 99284; J3490; Q9967

== ENCOUNTER 2020-10-03 12:26 | Outpatient (CLI) | payer MEDICAID, SELFPAY ==
--- NOTE | 2020-10-03 07:45 | DI.CT_ITS ---
EXAM: CT ABDOMEN PELVIS W CLINICAL HISTORY: LLQ pain, rectal bleeding,H/O DIVERTICULAR ABSCESS OF COLON,R10.32 TECHNIQUE: Imaging Protocol: Axial computed tomography images with coronal and sagittal reformatted images were created and reviewed CONTRAST MATERIAL: Intravenous: Omnipaque 350 Contrast volume:100 mL Oral: Yes COMPARISON: CT CT ABDOMEN PELVIS W from 05/25/2019 FINDINGS: ABDOMEN: Lung Bases: Normal where visualized. Liver: Normal density. No measurable mass. Portal, Superior Mesenteric, and Splenic Veins: Unremarkable. Gallbladder and Biliary Tract: No radiodense calculus or dilation. Pancreas: Normal density, no abnormal calcifications or inflammatory process. Spleen: Normal. Adrenals: No masses seen. Kidneys: Normal size, contour and axis. No radiodense stones or obstructive uropathy. No masses seen. Abdominal Aorta: Abdominal portion non-dilated. Moderate atherosclerosis. Bowel: No obstruction or bowel wall thickening. Appendix is unremarkable. Colonic diverticulosis but no evidence of acute diverticulitis. Peritoneal Cavity: No ascites, collection or mesenteric inflammatory response. Lymph Nodes: Within normal limits. Bones: Degenerative changes. Old healed right superior and inferior pubic rami fractures. Degenerat marilee retrolisthesis of L1 on L2. Soft Tissues: Unremarkable. PELVIS: Bladder: Symmetric distention, no gross wall thickening. Reproductive Organs: Unremarkable as visualized. Lymph Nodes: Within normal limits. Bones: Please see above. IMPRESSION: Colonic diverticulosis but no evidence of acute diverticulitis. No acute abdominal or pelvic process. RADIATION DOSE DELIVERED: 661.4mGy.cm Total DLP DATA REPOSITORY: All CT scans at this facility are submitted to the National Radiology Data Registry (NRDR) Dose Index Registry (DIR) with the [employer] (ACR). RADIATION OPTIMIZATION: All CT scans at this facility use at least one of these dose optimization te chniques: automated exposure control; mA and/or kV adjustment per patient size (includes targeted exa ms where dose is matched to clinical indication); or iterative reconstruction.
[2020-10-03] MEDS: Omnipaque 350 MG/ML 50 ML BTL IJ (09:37)
[2020-10-03] MEDS: Omnipaque 350 MG/ML 100 ML BTL IV (10:18)
== END 2020-10-03 12:46 ==
PROVIDERS: Visit Provider Surgery
DX: K57.31 Diverticulosis of large intestine without perforation or abscess with bleeding (principal); Z87.19 Personal history of other diseases of the digestive system; R10.32 Left lower quadrant pain
CPT/HCPCS: 74177; J3490; Q9967

== ENCOUNTER 2020-10-12 00:51 | Outpatient (CLI) | payer MEDICAID, SELFPAY ==
[2020-10-14 09:27] LABS: SARS-CoV-2 RNA Not Detected (NotDetected); SARS-CoV-2 RNA Source Nasal/Nares
== END 2020-10-12 01:11 ==
PROVIDERS: Visit Provider Surgery
DX: Z11.59 Encounter for screening for other viral diseases (principal); Z01.818 Encounter for other preprocedural examination
CPT/HCPCS: U0003

== ENCOUNTER 2020-10-17 08:10 | Day surgery (SDC) | payer MEDICAID, SELFPAY ==
--- NOTE | 2020-10-17 07:15 | COLE_ITS ---
Date of service: 10/17/20 Time of Service: 10:05 Colonoscopy Report Date of procedure: 10/17/20 Pre-op diagnosis general: Rectal bleeding Post-op diagnosis procedure note: other (Grade 1 and 2 internal hemorrhoids, sigmoid diverticulosis and polyps) Procedure: Colonoscopy with polypectomy Surgeon: Aishwarya Shen Anesthesia proc note operative: other (General/ASA 2/Aaliyah Ferrera, [employer]) Estimated blood loss (mL): 3 Pathology: other (Cecal polyp, ascending polyp, rectosigmoid polyp at 15 cm, and rectum at 12 cm) Complications: None Disposition: same day Indications: Virgil is a pleasant 55-year-old gentleman who last year was admitted with diverticulitis with an abscess. He was eventually discharged home and followed up in the office at which time he was scheduled for a colonoscopy. The patient had never had a colonoscopy before. He unfortunately canceled the colonoscopy. He is here today because he now has had intermittent rectal bleeding usually after a bowel movement. He also complains of some left lower quadrant pain although on exam its mostly just above the anterior superior iliac spine. He has no tenderness or rebound in the left lower quadrant. I cannot feel a hernia defect. Colonoscopy under sedation Risks, benefits and complications have been reviewed. Complications include but are not limited to bleeding, pain, perforation, missed small lesion/polyp, sore throat, aspiration and adverse reaction to the medications. Questions were entertained and answered to their satisfaction and they wished to proceed. No guarantees were given or implied. Prep: Miralax/Dulcolax Procedure Start Time: 10:05 Procedure End Time: 10:45 Retraction Time: 32 minutes Findings: 4 polyps sigmoid colon diverticulosis internal hemorrhoids Procedure Description: After informed consent was obtained the patient was t aken to the procedure room and placed in a left decubitous position. Monitors were applied and a time out was done. The patients name, date of , procedure, allergies to medications and metal in their body was reviewed. The patient was then sedated. Once sedated and comfortable a rectal exam was done. External exam was normal. Internal exam revealed a normal sphincter tone and no palpable masses. The prostate felt smooth and slightly enlarged. The scope was then introduced and retro-flexed. Grade 1 and 2 internal hemorrhoids were identified. The scope was then advanced to the cecum without difficulty. The ileocecal valve and appendiceal orifice were identified. The prep was adequate. The scope was then slowly retracted over 32 minutes back into the rectum. Polyps were removed with cold forceps in the cecum, ascending colon and rectum at 12 cm, polyp was removed with a hot snare at the rectosigmoid junction at 15 cm. There was moderate diverticulosis in the sigmoid colon. The scope was removed and the patient was woken up and taken back to Same day surgery in stable condition. The patient tolerated the procedure well and there were no immediate complications. Follow up: The patient should follow up in 3-5 years unless they develop changes in bowel habits or other new gastrointestinal complaints.
--- NOTE | 2020-10-17 07:17 | W.PM.DSUDISC ---
Discharge Plan Disposition Patient Disposition: HOME Condition: Stable Discharge Details Reason For Visit: Colonoscopy Attending Provider: Aishwarya Shen Primary Care Provider: None,None Home Meds and New Rx's Prescriptions: Continued ibuprofen 200 mg capsule 800 mg PO PRN PRNRF: 0 Discontinued bisacodyl [Dulcolax (bisacodyl)] 5 mg tablet,delayed release (DR/EC) 5 mg PO ONCE Qty: 4 RF: 0 polyethylene glycol 3350 17 gram powder in packet 255 g PO DAILY Qty: 15 RF: 0 Discharge Instructions Instructions: Colorectal Polyps (DC), Diverticulosis (DC), Hemorrhoids (DC) Additional Instructions: Findings: Sigmoid diverticulosis internal hemorrhoids 4 polyps Follow up: most likely 3 years Other: You will get a call from Care management about setting you up with a Primary Care physician. Your first visit may be done over the phone. Please call if you develop: fevers >101.5 Nausea or Vomiting Abdominal pain that is not transient DAY SURGERY UNIT POST ENDOSCOPY INSTRUCTIONS 1. Because there will be medication in your system for the next 24 hours, you may feel a little sleepy. Your coordination will be affected. Therefore: a. Do not drive or operate dangerous equipment for 24 hours. b. Do not drink alcohol beverages for 24 hours (not even beer). c. Plan to go home and rest for the day. 2. Generally there are no restrictions on your activity after a day or so has gone by, but you may feel a bit fatigued for a few days. 3 After you arrive home you may have a light meal and return to a normal diet as you can tolerate it without feeling sick to your stomach. 4. After surgery, you may feel pain or discomfort. This should be only transient, but if it persists please contact your doctor. 5. If there are any questions regarding the findings of your procedure, please feel free to contact your doctor. 6. If you are unable to contact your doctor with a problem, contact the hospital at [phone]. 7. Continue all your regular medications unless directed otherwise. I understand the above instructions and have no questions. Signature of Patient or Responsible Adult Escort Date/Time Name of Responsible Adult Escort Signature of Nurse Date/Time Activity:: Activity as Tolerated Diet:: high fiber diet Discharge Orders Discharge Orders: Discharge Order (Routine); Ordered 10/17/20 Ordered By: Aishwarya Shen
[2020-10-17 08:24] VITALS: BP 140/89; PULSE 88; RESP 16; TEMP 37.1; O2SAT 98
[2020-10-17] MEDS: Lactated Ringers 1,000 ML 80 ML IV (08:42)
--- NOTE | 2020-10-17 10:15 | BOWEL_PTH ---
PATIENT: Virgil Langford LOC: [facility] U#:[id number] AGE/SX: 55/M ROOM: RE10/17/[address]: Aishwarya Shen MD : [id number] BED: DIS: 10/17/2020 SPEC #: [id number] RECD: 10/17/20 12:28 STATUS: MATILDA REQ #: [id number] SARAH: 10/17/20 10:[address]: Aishwarya Shen DEPT: Surgical Specimen RECD BY: Rosalva Cabrales ENTERED: 10/17/20 12:29 SP TYPE: Bowel OTHR DR: None Tissues: 1 - BIOPSY BOWEL 2 - BIOPSY BOWEL 3 - BIOPSY BOWEL 4 - BIOPSY BOWEL Procedures: GROSS AND MICRO LEVEL 4 Comments: [id number] ([id number] [facility] [place]#)
[2020-10-17 11:32] VITALS: BP 117/78; PULSE 67; RESP 16; TEMP 36.5; O2SAT 98
== END 2020-10-17 12:00 | disposition home or self-care (01) ==
PROVIDERS: Visit Provider Surgery
PROC: 0DJD8ZZ Inspection of Lower Intestinal Tract, Via Natural or Artificial Opening Endoscopic (ICD-10-PCS; CPT 45378; principal; 2020-10-17 09:15)
DX: K62.5 Hemorrhage of anus and rectum (principal); D12.0 Benign neoplasm of cecum; D12.2 Benign neoplasm of ascending colon; D12.7 Benign neoplasm of rectosigmoid junction; D12.8 Benign neoplasm of rectum; K57.30 Diverticulosis of large intestine without perforation or abscess without bleeding; K64.0 First degree hemorrhoids; K64.1 Second degree hemorrhoids
CPT/HCPCS: 45385; 45380; 88305; J2001

== ENCOUNTER 2022-06-27 16:25 | Emergency (ER) | payer MEDICAID, SELFPAY ==
[2022-06-27 16:35] VITALS: BP 136/83; PULSE 92; RESP 14; TEMP 36.9; O2SAT 97
--- NOTE | 2022-06-27 17:15 | DI.CT_ITS ---
Exam(s) CT HEAD WO EXAM: CT HEAD WO CLINICAL HISTORY: dizzy, rt ear fullness, balance disturbance x yrs. TECHNIQUE: Imaging Protocol: Axial computed tomography images with coronal and sagittal reformatted images were created and reviewed COMPARISON: No exams were available for comparison FINDINGS: The ventricular system is normal in appearance. No evidence of acute intracranial hemorrhage, mass effect, or midline shift. The orbital structures are unremarkable. The temporal bone structures appear intact. Calvarium: Normal. Visualized Paranasal sinuses/Mastoids: Clear. IMPRESSION: Normal cranial CT. RADIATION DOSE DELIVERED: 752.52mGy.cm Total DLP 752.52mGy.cm Total DLP !Error CTDIvol DATA REPOSITORY: All CT scans at this facility are submitted to the National Radiology Data Registry (NRDR) Dose Index Registry (DIR) with the [employer] ([employer]). RADIATION OPTIMIZATION: All CT scans at this facility use at least one of these dose optimization te chniques: automated exposure control; mA and/or kV adjustment per patient size (includes targeted exa ms where dose is matched to clinical indication); or iterative reconstruction.
--- NOTE | 2022-06-27 18:05 | DI.VRAD_ITS ---
PROCEDURE INFORMATION: Exam: CT Head Without Contrast Exam date and time: 06/27/2022 5:55 PM Age: 57 years old Clinical indication: Other: Dizziness, balance is off x years. Patient HX: RT ear fullness TECHNIQUE: Imaging protocol: Computed tomography of the head without contrast. Radiation optimization: All CT scans at this facility use at least one of these dose optimization techniques: automated exposure control; mA and/or kV adjustment per patient size (includes targeted exams where dose is matched to clinical indication); or iterative reconstruction. COMPARISON: No relevant prior studies available. FINDINGS: Brain: Cerebral sulci show bilateral symmetry with no supratentorial mass or mass effect detected. Brainstem and cerebellum are unremarkable. There is no evidence of acute transcortical infarction or recent intracranial hemorrhage. Cerebral ventricles: Ventricular and cisternal spaces are normal in size and configuration and there is no midline shift or hydrocephalus seen. Paranasal sinuses: Mucosal disease is seen along the medial margin of the left maxillary sinus and in the region of the right frontoethmoid recess. Mastoid air cells: Grossly clear bilaterally. Bones/joints: Bony calvarium and skull base are intact and no acute fractures are detected. Soft tissues: Unremarkable. IMPRESSION: Unremarkable noncontrast head CT with no evidence of an acute intracranial process. Dictated and Authenticated by: Alonzo Penn MD. Ordering:CATHY Moreno MD
--- NOTE | 2022-06-27 19:12 | ED.GENADUL_ITS ---
Discharge Plan Disposition Patient Disposition: HOME Condition: Stable Discharge Details Clinical Impression: Sensation of fullness in right ear, Balance problem, Visual disturbance Primary Care Provider: Unknown,Unknown ED Provider: Josh Richardson Home Meds and New Rx's Prescriptions: No Action ibuprofen 200 mg capsule 800 mg PO PRN PRN Discharge Instructions Additional Instructions: Please follow-up with neurology. Call for an appointment. Please contact your primary care physician to arrange follow-up. Return to the ER immediately for any worsening or new concerning symptoms. Referrals: [facility] [Provider Group] Discharge Data Discharge Date/Time-TO BE ENTERED AT DEPARTURE: 06/27/22 19:15 Medical Decision Making 57-year-old male here with chronic fullness in his right ear with associated unsteadiness as well as visual disturbances times years. External canals are clear. He does have some mild fullness of his right tympanic membrane with no inflammatory changes or effusion. CT of the head was interpreted by radiology: Unremarkable noncontrast head CT with no evidence of acute intracranial process. Patient is currently neurologically intact. Given chronicity of symptoms with both visual disturbance and balance issues, I will refer the patient to neurology for further assessment. Patient will also need to be established with a PCP. HPI General Mode of arrival: ambulatory . Date/Time Provider Initiated Documentation: 06/27/22 17:17 . Limitations to Documentation: no limitations . Information obtained by: patient . HPI Narrative: 57-year-old male presents with chief complaint of right ear fullness. Patient notes he feels like he had something stuck in his ear for 2 weeks. Patient states symptoms are moderate. He states he has chronic ear fullness that waxes and wanes and has impacted his hearing as well as balance. He notes his balance is currently off. He also notes some chronic visual disturbances as well. Patient is concerned because his father had history of brain cancer. Patient denies associated numbness or tingling. Patient is here specifically requesting ear irrigation. Related Data Home Medications Medication Instructions Recorded Confirmed ibuprofen 200 mg capsule 800 mg PO PRN PRN 10/02/20 06/27/22 Allergies Allergy/AdvReac Type Severity Reaction Status Date / Time No Known Allergies Allergy Unverified 06/27/22 16:39 General Stated Complaint: EarProblem FRANK: 4 Review of Systems All systems reviewed & are unremarkable except as noted in HPI and below Constitutional Constitutional: Denies fever(s) Eyes Eyes: Reports as per HPI ENT Ears, Nose, Mouth, and Throat: Reports as per HPI PFSH All Active Problems Sensation of fullness in right ear (Acute) Balance problem (Acute) Visual disturbance (Acute) Tubular adenoma of colon (Acute) Sessile colonic polyp (Acute) S/P colonoscopy (Acute) Colonic diverticular abscess (Acute) Abscess of rectum (Acute) History of back surgery (Acute) Social History Smoking/Tobacco Use Status: Current every day Tobacco Type: cigarettes Smoking packs per day: 1 Smoking cigarettes per day: 20.0 Smoking risk assessment performed?: Yes Alcohol Intake: current Alcohol Intake frequency: a few times a week Alcohol type: beer Drug use: Never Substance use type: does not use Current gender identity: male Do you feel safe at home: Yes Do you feel safe in your relationship?: Yes Exam Const General: cooperative and no acute distress Orientation: alert and awake HENMT Head: normocephalic and atraumatic Ears: external ears normal, TM normal on the left, mastoids normal, no periauricular adenopathy, TM abnormal (Mild fullness on right) and other (slightly dcreased hearing right) General nose exam: external nose normal Face and sinus: normal facial exam Mouth: moist mucous membranes Throat: posterior oropharynx normal Eyes Visual Cassidy: normal visual cassidy by confrontation Alignment and Position: alignment normal Conjunctivae: normal conjunctivae Sclera: normal sclerae Cornea: corneas normal Pupils: PERRL EOM: EOM intact bilaterally, no movement deficit and No nystagmus Neck Neck: full ROM, trachea midline and supple Resp Auscultation: clear to auscultation bilaterally, no rales, no rhonchi and no wheezes Cardio Jugular venous pressure: no JVD Rate: regular rate and not tachycardic Rhythm: regular rhythm Skin General skin exam: no rashes or lesions noted Neuro General: patient alert, patient awake, patient oriented x3 and tone normal Cranial Nerves: sense of smell intact, PERRL, accommodation normal, EOM intact bilaterally, no nystagmus, facial strength normal, tongue midline, able to rotat e head bilaterally, able to elevate shoulders bilaterally, no nystagmus and symmetric palate elevation Cognition: normal cognition Speech: speech normal Gait: normal gait Motor: muscle tone normal throughout Sensory Exam: no sensory deficits noted Coordination: Romberg test abnormal and Does not sway with eyes open Other: Patient has some difficulty with [id number], no past-pointing but definitely slower with movements on left compared to right Extrem General: no edema Psych Appearance: grossly normal Mental Status: mental status grossly normal Speech and Movement: speech and movement normal Course Vital Signs Vital signs: Vital Signs Temperature 36.9 C 06/27/22 16:35 Pulse 92 H 06/27/22 16:35 Respiratory Rate 14 06/27/22 16:35 Blood Pressure 136/83 06/27/22 16:35 Pulse Oximetry 97 06/27/22 16:35 Temperature 36.9 C 06/27/22 16:35 Temperature Source Temporal Artery Scan 06/27/22 16:35 Pulse 92 H 06/27/22 16:35 Respiratory Rate 14 06/27/22 16:35 Respiratory Effort Non-Labored 06/27/22 16:40 Blood Pressure 136/83 06/27/22 16:35 Blood Pressure Position Sitting 06/27/22 16:35 Pulse Oximetry 97 06/27/22 16:35 Oxygen Delivery Method Room Air 06/27/22 16:35 Oxygen Flow Rate 0 06/27/22 16:35 Pain Level 2 06/27/22 16:35 PAWSS Have you Been Recently Intoxicated or Drunk Within the Last 30 days?: Yes Have you Ever Experienced Previous Episodes of Alcohol Withdrawal?: No Have you ever Experienced Withdrawal Seizures?: No Have you ever Experienced Delirium Tremens(DT)s?: No Have you ever undergone Alcohol Rehabilitation Treatment (i.e, inpt ot outpatient treatment programs)?: No Have you ever Experienced Blackouts?: No Have you ever Combined Alcohol with other Downers within the last 90 days?: No Have you ever Combined Alcohol with any other Substance of Abuse during the last 90 days?: No Positive Blood Alcohol level on Presentation? [PCS.BAL]: No Evidence of Increased Autonomic Activity (i.e. HR>120, tremor, sweating, agitation, nausea)?: No Result: 1
== END 2022-06-27 19:15 | disposition home or self-care (01) ==
PROVIDERS: Emergency Provider Student in an Organized Health Care Education/Training Program
DX: H93.8X1 Other specified disorders of right ear (principal); R26.9 Unspecified abnormalities of gait and mobility; H53.9 Unspecified visual disturbance; F17.210 Nicotine dependence, cigarettes, uncomplicated
CPT/HCPCS: 99284; 70450; 99282

== ENCOUNTER 2023-06-20 00:46 | Emergency (ER) | payer MEDICAID, SELFPAY ==
--- NOTE | 2023-06-20 00:30 | RT.EKG_ITS ---
APPROVED REPORT Exam: Resting ECG Reason for Exam: chest pain Patient Location: E HR:80 bpm ECG Measurements Heart Rate 80 AXIS WY 136 P 70 QRSd 101 QRS 94 QT 416 T 55 QTc 480 Conclusion Sinus rhythm...normal P axis, V-rate 60- 99 Anteroseptal infarct, age indeterminate...Q >35mS, T neg, V1-V2 sinus rhythm, normal axis, poor R wave progression anterior leads, anterior Q waves
[2023-06-20 00:44] VITALS: BP 147/89; PULSE 97; RESP 20; TEMP 36.7; O2SAT 98
[2023-06-20 00:45] VITALS: O2SAT 97
[2023-06-20 00:47] VITALS: BP 147/86; PULSE 79
[2023-06-20 00:50] VITALS: PULSE 81; RESP 28
[2023-06-20 01:00] VITALS: PULSE 76; RESP 35; O2SAT 97
--- NOTE | 2023-06-20 01:15 | DI.RAD_ITS ---
Exam(s) XR CHEST 2V PA LATERAL EXAM: XR CHEST 2V PA LATERAL CLINICAL HISTORY: right sided pleuritic chest pain TECHNIQUE: 2D digital imaging was performed of the chest. Two images were obtained. PA and lateral views were obtained. COMPARISON: There are no priors for comparison. FINDINGS: MEDIASTINUM: Normal. HEART: Normal. PULMONARY VASCULATURE: Normal. LUNGS: Clear. PLEURAL SPACE: There is blunting of the right costophrenic angle which may represent a small pleural effusion. BONE:Within normal limits for the patient's age. OTHER FINDINGS:Normal. IMPRESSION: 1. No infiltrates. 2. Question of a small right pleural effusion. DATA REPOSITORY: RADIATION DOSE DELIVERED:
[2023-06-20] MEDS: ACETAMINOPHEN 1,000 MG/100 ML BTL 400 MG IVPB (01:34)
[2023-06-20 01:35] LABS: Abs Immature Grans 0.04 10^3/uL (0.0-0.06); Absolute Basophil Count 0.06 10^3/uL (0.0-0.2); Absolute Eosinophil Count 0.17 10^3/uL (0.0-0.7); Absolute Lymphocyte Count 2.49 10^3/uL (1.2-3.4); Absolute Monocyte Count 0.85 10^3/uL (0.1-0.8); Basophils % 0.6; Eosinophils % 1.8; HCT 41.1 % (40.0-50.0); HGB 13.8 g/dL (13.5-17.5); Immature Grans % 0.4; Lymphocytes % 25.6; MCH 33.6 pg (27.0-33.0); MCHC 33.6 % (32.0-36.0); MCV 100 fL (80-95); Monocytes % 8.8; Neutrophils % 62.8; Platelet Count 198 10^3/uL (130-400); RBC 4.11 10^6/uL (4.36-5.78); RDW 13.5 % (11.8-14.1); RDW-SD 49.8 fL; WBC 9.71 10^3/uL (4.4-10.8)
--- NOTE | 2023-06-20 01:45 | ED.GENADUL_ITS ---
Discharge Plan Disposition Patient Disposition: Home Discharge Details Clinical Impression: Pulmonary emboli, Acute deep vein thrombosis (DVT) of left lower extremity Primary Care Provider: Unknown,Unknown ED Provider: Jairon Major Home Meds and New Rx's Prescriptions: New Eliquis DVT-PE Treat 30D Start 5 mg (74 tabs) tablets,dose pack 5 mg PO ONCE Qty: 74 0RF Rx Instructions: 10mg twice daily for 7 days; followed by 5mg twice daily thereafter No Action ibuprofen 200 mg capsule 800 mg PO PRN PRN Discharge Instructions Instructions: Pulmonary Embolism (ED), Deep Vein Thrombosis (ED) Additional Instructions: Please follow-up closely with schedule appointment with pulmonology team and primary care team. Please take anticoagulation as instructed. Please return to the emergency department for any worsening symptoms Medical Decision Making 58-year-old male presents with shortness of breath and right-sided chest pain that began this morning, worse with deep breath, lungs clear bilaterally normoxic no respiratory distress, speaking in full sentences, no wheezing crackles or rales appreciated, no peripheral edema, no history of coronary disease or thromboembolic disease; consider pleurisy versus costochondritis versus pneumothorax versus PE versus ACS, less likely pneumonia or aortic pathology. Screening labs EKG chest x-ray analgesia if persistent symptoms unremarkable labs and x-ray consider CTA chest. Disposition pending reassessment and results 4: 48 evidence of bilateral PE, no evidence of right heart strain on CT, mildly elevated troponin now downtrending, bedside ultrasound showing left lower extremity DVT at level of popliteal vein, bedside [id number] cardiac ultrasound showing normal RV function, no RV dilatation, no septal bowing, no evidence of hypokinesis, normal-appearing ventricles with concentric symmetric contraction; patient will be started on Eliquis, will be given close follow-up with primary care and pulmonology team. Strict return precautions given for any worsening signs and symptoms. Patient resting comfortably currently no respiratory distress no tachycardia no hypotension patient is normoxic and not tachypneic HPI General Date/Time Provider Initiated Documentation: 06/20/23 01:27 . HPI Narrative: 58-year-old male presents with shortness of breath and right-sided sharp pleuritic chest pain that began this morning, denies history of coronary disease or thromboembolic disease. Denies recent travel. No fevers no chills. Related Data Home Medications Medication Instructions Recorded Confirmed ibuprofen 200 mg capsule 800 mg PO PRN PRN 10/02/20 06/27/22 apixaban 5 mg (74 tabs) tablets in 5 mg PO ONCE #74 dose pk 06/20/23 a dose pack (Eliquis DVT-PE Treat 30D Start) Previous Rx's Medication Instructions Recorded apixaban 5 mg (74 tabs) tablets in 5 mg PO ONCE #74 dose pk 06/20/23 a dose pack (Eliquis DVT-PE Treat 30D Start) Allergies Allergy/AdvReac Type Severity Reaction Status Date / Time No Known Allergies Allergy Unverified 06/27/22 16:39 General Stated Complaint: Chest/Rib FRANK: 3 Review of Systems Narrative: Review of Systems Constitutional: negative Eyes: negative ENT: negative Cardiovascular: Chest pain Respiratory: Shortness of breath Gastrointestinal: negative : negative Musculoskeletal: negative Skin: negative Neurologic: negative Psych: negative PFSH All Active Problems Pulmonary emboli (Chronic) Acute deep vein thrombosis (DVT) of left lower extremity (Acute) Tubular adenoma of colon (Acute) Sessile colonic polyp (Acute) S/P colonoscopy (Acute) Colonic diverticular abscess (Acute) Abscess of rectum (Acute) History of back surgery (Acute) Social History Smoking/Tobacco Use Status: Current every day Tobacco Type: cigarettes Smoking packs per day: 1 Smoking cigarettes per day: 20.0 Smoking risk assessment performed?: Yes Alcohol Intake: current Alcohol Intake frequency: a few times a week Alcohol type: beer Drug use: Never Substance use type: does not use Current gender identity: male Do you feel safe at home: Yes Do you feel safe in your relationship?: Yes Exam Narrative Exam Narrative: Physical Examination General: alert, awake, cooperative, appears uncomfortable HEENT: normocephalic, atraumatic; PERRL, EOM intact, conjunctiva normal; no nasal discharge; moist mucous membranes, oral and pharyngeal mucosa normal, tolerating secretions Neck: supple, trachea midline; full ROM Chest: normal to inspection Respiratory: normal respiratory effort, speaking in full sentences, clear to auscultation, no wheezing, rales or rhonchi Cardiac: regular rate, regular rhythm, S1S2 intact, no murmurs rubs or gallops GI: abdomen soft, non-tender, non-distended; no palpable mass or hepatosplenomegaly Skin: no lesions, rashes or trauma appreciated Neuro: AAOx3, normal speech, moving all extremities Extremities: No peripheral edema Psych: Appropriate mood and affect Course Vital Signs Vital signs: Vital Signs Temperature 36.7 C 06/20/23 00:44 Pulse 97 H 06/20/23 00:44 Respiratory Rate 20 06/20/23 00:44 Blood Pressure 147/89 H 06/20/23 00:44 Pulse Oximetry 98 06/20/23 00:44 Temperature 36.7 C 06/20/23 00:44 Temperature Source Oral 06/20/23 00:44 Pulse 79 06/20/23 00:47 Pulse 76 06/20/23 01:00 Respiratory Rate 35 H 06/20/23 01:00 Respiratory Effort Normal 06/20/23 01:01 Respiratory Depth Shallow 06/20/23 00:50 Respiratory Pattern Tachypnea 06/20/23 00:50 Blood Pressure 147/86 H 06/20/23 00:47 Blood Pressure Mean 100 06/20/23 00:47 Blood Pressure Position Sitting 06/20/23 00:44 Pulse Oximetry 97 06/20/23 01:00 Pain Level 8 06/20/23 00:50 Lab/Test Results Lab/Test Results: Laboratory Tests Range/Units 06/20/23 00:55 WBC (4.4-10.8) 10^3/uL 9.71 RBC (4.36-5.78) 10^6/uL 4.11 L Hgb (13.5-17.5) g/dL 13.8 Hct (40.0-50.0) % 41.1 MCV (80-95) fL 100 H MCH (27.0-33.0) pg 33.6 H MCHC (32.0-36.0) % 33.6 RDW (11.8-14.1) % 13.5 Plt Count (130-400) 10^3/uL 198 MPV (8.0-11.0) fL 9.0 Immature Gran % 0.4 Neutrophils % 62.8 Lymphocytes % 25.6 Monocytes % 8.8 Eosinophils % 1.8 Basophils % 0.6 Nucleated RBC % (0.0-0.3) % 0.0 Absolute Neutrophils (1.2-6.7) 10^3/uL 6.10 Absolute Lymphocytes (1.2-3.4) 10^3/uL 2.49 Absolute Monocytes (0.1-0.8) 10^3/uL 0.85 H Absolute Eosinophils (0.0-0.7) 10^3/uL 0.17 Absolute Basophils (0.0-0.2) 10^3/uL 0.06 PAWSS Have you Been Recently Intoxicated or Drunk Within the Last 30 days?: No Have you Ever Experienced Previous Episodes of Alcohol Withdrawal?: No Have you ever Experienced Withdrawal Seizures?: No Have you ever Experienced Delirium Tremens(DT)s?: No Have you ever undergone Alcohol Rehabilitation Treatment (i.e, inpt ot outpatient treatment programs)?: No Have you ever Experienced Blackouts?: No Have you ever Combined Alcohol with other Downers within the last 90 days?: No Have you ever Combined Alcohol with any other Substance of Abuse during the last 90 days?: No Positive Blood Alcohol level on Presentation? [PCS.BAL]: No Evidence of Increased Autonomic Activity (i.e. HR>120, tremor, sweating, agitation, nausea)?: No Result: 0
--- NOTE | 2023-06-20 01:45 | DI.CT_ITS ---
Exam(s) CT CHEST PE CTA EXAM: CT CHEST PE CTA CLINICAL HISTORY: right pleuritic chest pain. TECHNIQUE: Imaging Protocol: Axial CT angiography was performed with multi-slice acquisition and mu lti-planar and/or 3D reconstructions. CONTRAST MATERIAL: Intravenous: Omnipaque 350 contrast volume:100 mL COMPARISON: CT CT ABDOMEN PELVIS W from 10/03/2020 CR,XR XR CHEST 2V PA LATERAL from 06/20/2023 FINDINGS: Tracheobronchial tree: Patent where visualized. Pulmonary parenchyma: Mild centrilobular emphysema. Atelectatic changes are seen in the lung bases. There is a tiny right pleural effusion and subjacent atelectasis. Pulmonary Arteries: There are emboli seen in branches of the pulmonary arteries to both lower lobes. There also pulmonary emboli seen in branches to the right middle lobe. The RV to LV ratio is less t faith 1. No evidence of right heart strain. No saddle embolus. Mediastinum and Liliana: No dominant adenopathy or fluid collection. The esophagus is unremarkable. Visualized thyroid gland: Unremarkable. Pleura: No pneumothorax. No left pleural effusion. Heart: The heart is not dilated. Mild coronary artery calcification. No pericardial effusion. Aorta: Thoracic aorta non-dilated. No evidence of dissection. Mild atherosclerosis. Upper abdomen: Unremarkable. Soft tissues: Unremarkable. Bones: Within normal limits for the patient's age. IMPRESSION: 1. Pulmonary emboli seen in segmental branches to the right middle, right lower and left lower lobes. 2. No evidence of right heart strain. 3. Mild bilateral basilar atelectasis and tiny right pleural effusion. 4. No evidence of aortic dissection or aneurysm. RADIATION DOSE DELIVERED: 319.09mGy.cm Total DLP DATA REPOSITORY: All CT scans at this facility are submitted to the National Radiology Data Registry (NRDR) Dose Index Registry (DIR) with the [employer] (ACR). RADIATION OPTIMIZATION: All CT scans at this facility use at least one of these dose optimization te chniques: automated exposure control; mA and/or kV adjustment per patient size (includes targeted exa ms where dose is matched to clinical indication); or iterative reconstruction.
[2023-06-20 01:51] LABS: INR 0.9 (0.9-1.1); PTT Activated 26.3 sec (21.5-31.9)
[2023-06-20 01:55] LABS: ALT 113 U/L (16-63); AST 64 U/L (15-37); Albumin 3.8 g/dL (3.4-5.0); Alkaline Phosphatase 112 U/L (46-116); Anion Gap 8.4 mmol/L (3-11); BUN 10 mg/dL (7-18); Bilirubin, Total 0.4 mg/dL (0.2-1.0); CO2 27.6 mmol/L (21.0-32.0); CREATININE 0.8 mg/dL (0.70-1.30); Calcium 8.7 mg/dL (8.5-10.1); Chloride 104 mmol/L (98-107); Estimated GFR 103.87 (mL/min/1.73m2); Glucose 98 mg/dL (74-106); Sodium 140 mmol/L (136-145); Total Protein 7.7 g/dL (6.4-8.2)
[2023-06-20 01:57] LABS: Troponin I 71 ng/L (<or=60)
[2023-06-20 02:17] LABS: NT-proBNP 62 pg/mL (<300)
[2023-06-20] MEDS: Omnipaque 350 MG/ML 100 ML BTL IJ (02:17)
[2023-06-20] MEDS: Normal Saline - Diluent 50 ML VIAL IJ (02:17)
--- NOTE | 2023-06-20 02:25 | DI.VRAD_ITS ---
PROCEDURE INFORMATION: Exam: XR Chest Exam date and time: 06/20/2023 1:41 AM Age: 58 years old Clinical indication: Pain; Right-sided; Additional info: Right sided pleuritic chest pain TECHNIQUE: Imaging protocol: Radiologic exam of the chest. Views: 2 views. COMPARISON: CT ABDOMEN PELVIS W 10/03/2020 10:20 AM FINDINGS: Lungs: No consolidation. Pleural spaces: Minimal blunting of the right costophrenic angle, cannot rule out small effusion. Heart/Mediastinum: Unremarkable. No cardiomegaly. Bones/joints: Unremarkable. IMPRESSION: No infiltrates. Minimal blunting of the right costophrenic angle, cannot rule out a small effusion. Dictated and Authenticated by: Braxton Tapia MD. Ordering:MARIA A De La O MD
--- NOTE | 2023-06-20 02:30 | DI.VRAD_ITS ---
Addendum created by Braxton Tapia MD on 06/20/2023 2:39:37 AM EDT: THIS REPORT CONTAINS FINDINGS THAT MAY BE CRITICAL TO PATIENT CARE. The findings were verbally communicated via telephone conference with Jairon Major at 2:39 AM EDT on 06/20/2023. The findings were acknowledged and understood. Initial report created on 06/20/2023 2:30:05 AM EDT: PROCEDURE INFORMATION: Exam: CTA Chest With Contrast Exam date and time: 06/20/2023 2:12 AM Age: 58 years old Clinical indication: Pain; Right-sided; Additional info: Right sided pleuritic chest pain TECHNIQUE: Imaging protocol: Computed tomographic angiography of the chest with contrast. Exam focused on the arteries. 3D rendering (Not supervised by radiologist): MIP and/or 3D reconstructed images were created by the technologist. Radiation optimization: All CT scans at this facility use at least one of these dose optimization techniques: automated exposure control; mA and/or kV adjustment per patient size (includes targeted exams where dose is matched to clinical indication); or iterative reconstruction. Contrast material: OMNI 350; Contrast volume: 100 ml; Contrast route: INTRAVENOUS (IV); COMPARISON: CR XR CHEST 2V PA LATERAL 06/20/2023 1:41 AM FINDINGS: Pulmonary arteries: Pulmonary emboli within right lower lobe artery, right middle lobe segmental branches. Pulmonary emboli within segmental branches of the left lower lobe. Aorta: No aortic aneurysm. No aortic dissection. Lungs: Bibasilar linear opacities of atelectasis and/or fibrosis. Mild centrilobular emphysema within upper lung zones. Pleural spaces: Unremarkable. No pneumothorax. No pleural effusion. Heart: Right ventricle measures 3.9 centimetres. Left ventricle measures 5.2 centimetres, RV to LV ratio is 0.75. Lymph nodes: Unremarkable. No enlarged lymph nodes. Bones/joints: Unremarkable. No acute fracture. Soft tissues: Unremarkable. IMPRESSION: Bilateral pulmonary emboli. No CT evidence for acute right heart strain. Mild cardiomegaly. Dictated and Authenticated by: Braxton Tapia MD. Ordering:MARIA A De La O MD
[2023-06-20] MEDS: Ketorolac 15 MG/ML VIAL IVP (02:55)
[2023-06-20] MEDS: Apixaban 5 MG TAB 10 MG PO (02:55)
[2023-06-20 04:40] LABS: Troponin I 66 ng/L (<or=60)
--- NOTE | 2023-06-20 04:54 | NUR.NOTE ---
Referral made by Dr. Groves for follow up with PCP and Pulmonology next week for a pulmonary embolism. Patient does not have a PCP, but has all the paperwork to go to [facility] and would like to be set up there. Put the referral in the Care Manger's box for follow up assistance with these appointments.Nursing Note:
== END 2023-06-20 05:19 | disposition home or self-care (01) ==
PROVIDERS: Emergency Provider Emergency Medicine
DX: R06.02 Shortness of breath (principal); I26.99 Other pulmonary embolism without acute cor pulmonale; I82.452 Acute embolism and thrombosis of left peroneal vein; F17.210 Nicotine dependence, cigarettes, uncomplicated
CPT/HCPCS: 36415; 71275; 80053; 93005; 96365; 99285; 71046; 83880; 84484; 85025; 85610; 85730; 93010; 99284; J0131; J1885; J3490

== ENCOUNTER 2023-09-24 04:22 | Outpatient (CLI) | payer MEDICAID, SELFPAY ==
[2023-09-24] MEDS: Levalbuterol HFA 15 GM INH 4 PUFF IH (16:04)
[2023-09-24] MEDS: Inhaler, Assist Device 1 EACH MC (16:05)
--- NOTE | 2023-09-25 12:54 | PFT_ITS ---
Date of service: 09/24/23 Time of Service: 15:01 Pulmonary Function Test Result Indications: Dyspnea Interpretation Spirometry: There is no airflow limitation. No significant bronchodilator response. Lung Volumes: Air trapping and hyperinflation Diffusion Capacity: Normal diffusion Airway Pressure: Normal airways resistance Impression No obstruction but air trapping is present. This can be seen in emphysema or ast hma. Clinical Correlation therefore is recommended.
== END 2023-09-24 04:23 | disposition home or self-care (01) ==
LOC: RT 04:23
PROVIDERS: Visit Provider Student in an Organized Health Care Education/Training Program
DX: R06.00 Dyspnea, unspecified (principal); F17.210 Nicotine dependence, cigarettes, uncomplicated
CPT/HCPCS: 94060; 94726; 94729

== ENCOUNTER 2023-12-13 12:32 | Emergency (ER) | payer MEDICAID, SELFPAY ==
[2023-12-13 12:46] VITALS: BP 124/97; PULSE 107; RESP 16; TEMP 37.1; O2SAT 97
--- NOTE | 2023-12-13 13:00 | ED.GENADUL_ITS ---
HPI General Stated Complaint: Cellulitis FRANK: 3 Date/Time Provider Initiated Documentation: 12/13/23 13:00. HPI Narrative: MDM This is an uncomfortable appearing normothermic and not tachycardic 58-year-old male with right-sided jaw pain and facial swelling concerning for the possibility of deep space infection for which patient will undergo CT soft tissue neck and CT maxillofacial along with empiric antibiotics using ampicillin-sulbactam. Patient has signs of thrush for which he will receive nystatin. No systemic symptoms of fevers or chills and given no tachycardia nor hypotension will defer lactate broad-spectrum antibiotics and cultures at this point in time. Patient does have quite poor dentition and certainly an endodontic source is possible. Good range of motion in neck so my suspicion for retropharyngeal abscess is low. Uvula midline so doubt peritonsillar abscess. He does not have any brawny edema submentally to suggest Davie's angina. No new medications to suggest anaphylaxis. He is not sexually active and denies history of HIV so my suspicion for acute necrotizing ulcerative gingivitis is low. No pain out of proportion to suggest necrotizing soft tissue infection. No history of trauma so my suspicion is low for mandibular fracture. Patient does have erythema to his face concerning for the possibility of erysipelas. Will reassess following CT scan. Given no shortness of breath will defer chest x-ray. Vesciles are also present concerning for zoster. 2:24 PM Comprehensive metabolic panel shows no BAKARI. No hyperglycemia. Normal potassium. Very mild hyponatremia. CBC shows no anemia. No thrombocytopenia. No leukocytosis. 3:[address] scan read with no deep space infection but rather showing right neck cellulitis. Given concern for possible thrush and erysipelas, we will treat with oral antibiotics and nystatin swish and swallow and acyclovir. Will also have patient seen later this week by primary care and [facility] eye care given concern for possible zoster. No Cabral's sign. Will defer steroids given concern for concurrent erysipelas. Will use clindamycin 450 mg every 8 hours for 10 days given concern for skin infection concurrently. I have asked health blood donor unit assistant Sangeeta to have the patient seen later this week by his primary care provider. I have also asked health blood donor unit assistant Sangeeta to have the patient seen by [facility] eye care in the next 1 to 2 days given concern for possible zoster. Will treat zoster with acyclovir. Rash began greater than 72 hours ago however the patient does have new vesicles. Patient was also given a list of dentists. I advised patient to return to the ED if he had worsening pain any difficulty swallowing or breathing or if he developed any fevers. He understood his return indications and was discharged with an empiric trial of expectant outpatient management. Chronic conditions affecting the care of the patient: Anticoagulation History obtained from an outside historian: N/A External record review: [place] [facility] [place] Medications: Acyclovir, nystatin, and antibiotics Social determinants of health affecting disposition: lives in a trailer Management discussed with: N/A Treatment/interventions considered: N/A Response to therapies provided: N/A HPI This is a 58-year-old male with a history of peripheral artery disease on apixaban arrived to the emergency department via private vehicle in the setting of right-sided face pain and swelling. Patient reports that his symptoms began approximately 5 days ago with right facial pain. He has had some pain when swallowing and difficulty chewing. He is also had persistent aching of his teeth. He has not seen a dentist in greater than 20 years since moving to [place]. He is a daily tobacco user but denies ethanol and illicits. He has had no fevers. He has had no trauma to his face. He denies any history of diabetes. He has no prior history of similar symptoms. Exam General: Chronically ill-appearing in no acute distress speaking in complete sentences. Head: Normocephalic, atraumatic. Eye: Extraocular eye movements intact. No conjunctival injection. No scleral icterus. Ear, nose, mouth, throat: Vesicular rash that is erythematous to right side of face with crusting convalescent vesicles at base of chin on right. Intraorally patient has thrush and signs of cheilitis. Patient has tenderness on percussion of his mandibular teeth on the right. No lesions to tip of nose. No brawny edema submentally. Handling secretions. Good range of motion in neck. Photo of face as follows: Neck: Trachea midline. Cardiovascular: Well-perfused distal extremities. Clear lungs. Respiratory: Nonlabored respiration. Regular rate and rhythm Gastrointestinal: Nondistended abdomen. Musculoskeletal: No edema. Moving all 4 extremities spontaneously. Skin: Normal for age and race, grossly normal temperature and turgor. No acute rash. Neurologic: Alert and appropriate, no apparent acute deficits. Psychiatric: Mood and manner are appropriate. Grooming and personal hygiene are appropriate. Related Data Home Medications Medication Instructions Recorded Confirmed acetaminophen 500 mg tablet See Rx Instructions PO DIRECTED 09/22/23 12/13/23 (Tylenol Extra Strength) PRN albuterol sulfate 90 mcg/actuation 2 puff inhalation Q6H PRN 09/22/23 12/13/23 aerosol inhaler shortness of breath or wheezing #8.5 grams apixaban 5 mg tablet (Eliquis) 5 mg PO BID #60 tabs 09/22/23 12/13/23 tiotropium 2.5 mcg-olodaterol 2.5 2 puff inhalation DAILY #4 grams 09/22/23 12/13/23 mcg/actuation mist for inhalation (Stiolto Respimat) acyclovir 800 mg tablet 800 mg PO QID 7 days #28 tabs 12/13/23 clindamycin HCl 150 mg capsule 150 mg PO Q8H 10 days #30 caps 12/13/23 (Cleocin HCl) nystatin 100,000 unit/mL oral 500,000 unit (5 mL) PO Q6H #250 mL 12/13/23 suspension Previous Rx's Medication Instructions Recorded albuterol sulfate 90 mcg/actuation 2 puff inhalation Q6H PRN 09/22/23 aerosol inhaler shortness of breath or wheezing #8.5 grams apixaban 5 mg tablet (Eliquis) 5 mg PO BID #60 tabs 09/22/23 tiotropium 2.5 mcg-olodaterol 2.5 2 puff inhalation DAILY #4 grams 09/22/23 mcg/actuation mist for inhalation (Stiolto Respimat) acyclovir 800 mg tablet 800 mg PO QID 7 days #28 tabs 12/13/23 clindamycin HCl 150 mg capsule 150 mg PO Q8H 10 days #30 caps 12/13/23 (Cleocin HCl) nystatin 100,000 unit/mL oral 500,000 unit (5 mL) PO Q6H #250 mL 12/13/23 suspension Allergies Allergy/AdvReac Type Severity Reaction Status Date / Time No Known Allergies Allergy Unverified 12/13/23 15:03 PFSH All Active Problems Zoster (Acute) Oral thrush (Acute) Erysipelas (Acute) Nicotine dependence, cigarettes, uncomplicated (Acute) Pleural effusion (Acute) Acute deep vein thrombosis (DVT) of left lower extremity (Acute) Pulmonary emboli (Acute) Tubular adenoma of colon (Acute) Sessile colonic polyp (Acute) S/P colonoscopy (Acute) Colonic diverticular abscess (Acute) Abscess of rectum (Acute) History of back surgery (Acute) Family History (Updated 09/22/23 @ 09:46 by Denise Gutiérrez) Mother Cancer Father Cancer Social History Smoking/Tobacco Use Status: Current every day Tobacco Type: cigarettes Smoking packs per day: 1 Smoking cigarettes per day: 20.0 Smoking risk assessment performed?: Yes Alcohol Intake: current Alcohol Intake frequency: a few times a week Alcohol type: beer Drug use: Never Substance use type: does not use Current gender identity: male Do you feel safe at home: Yes Do you feel safe in your relationship?: Yes Course Vital Signs Vital signs: Vital Signs Temperature 37.1 C 12/13/23 12:46 Pulse 107 H 12/13/23 12:46 Respiratory Rate 16 12/13/23 12:46 Blood Pressure 124/97 H 12/13/23 12:46 Pulse Oximetry 97 12/13/23 12:46 Temperature 37.1 C 12/13/23 12:46 Pulse 107 H 12/13/23 12:46 Respiratory Rate 16 12/13/23 12:46 Blood Pressure 124/97 H 12/13/23 12:46 Blood Pressure Position Sitting 12/13/23 12:46 Pulse Oximetry 97 12/13/23 12:46 Oxygen Delivery Method Room Air 12/13/23 12:46 Oxygen Flow Rate 0 12/13/23 12:46 Pain Level 10 12/13/23 12:46 Medical Decision Making Quality:SDOH Health Related Social Needs: 2 No Data to Display Discharge Plan Disposition Patient Disposition: Home Discharge Details Clinical Impression: Erysipelas, Oral thrush, Zoster Primary Care Provider: Unknown,Unknown ED Provider: Joshua Lugo Home Meds and New Rx's Prescriptions: New acyclovir 800 mg tablet 800 mg PO QID 7 Days Qty: 28 0RF clindamycin HCl [Cleocin HCl] 150 mg capsule 150 mg PO Q8H 10 Days Qty: 30 0RF nystatin 100,000 unit/mL suspension 500,000 unit PO Q6H Qty: 250 0RF Rx Instructions: administer 1/2 of dose in each side of the mouth Continued acetaminophen [Tylenol Extra Strength] 500 mg tablet See Rx Instructions PO DIRECTED PRN Rx Instructions: orally as directed PRN; Stiolto Respimat 2.5-2.5 mcg/actuation mist 2 puff inhalation DAILY Qty: 4 12RF albuterol sulfate 90 mcg/actuation HFA aerosol inhaler 2 puff inhalation Q6H PRN (Reason: shortness of breath or wheezing) Qty: 8.5 12RF Eliquis 5 mg tablet 5 mg PO BID Qty: 60 4RF Discharge Instructions Instructions: Shingles (ED), Cellulitis (ED) Additional Instructions: You were seen in the emergency department for your facial pain. Your CAT scan showed no sign of any deeper abscesses. You have an infection of your face and teeth for which you are receiving an oral antibiotic that you should take as directed. There is also concern, as we discussed, for the possibility of shingles for which you are receiving a second antiviral medicine. There is also signs of a fungal infection in your mouth called thrush for which you should take this medicine as prescribed. Please follow-up with your primary care provider next week. Please return to the emergency department if you have any concerns or if you develop any fevers. Referrals: [facility] [Outside] Discharge Data Discharge Date/Time-TO BE ENTERED AT DEPARTURE: 12/13/23 16:28
[2023-12-13 13:02] VITALS: BP 171/101; PULSE 97; RESP 16; TEMP 36.6; O2SAT 98
--- NOTE | 2023-12-13 13:15 | DI.CT_ITS ---
Exam(s) CT FACIAL WO EXAM: CT FACIAL WO CLINICAL HISTORY: Right facial swelling tenderness. TECHNIQUE: Imaging Protocol: Axial computed tomography images with coronal and sagittal reformatted images were created and reviewed. No IV contrast COMPARISON: CT CT NECK W from 12/13/2023 FINDINGS: MAXILLOFACIAL CT SCAN: There is no evidence of facial fractures nor fluid the visualized paranasal sinuses. There is no javier dence of orbital blowout fracture. There are right-sided facial and upper neck findings consistent with cellulitis and reactive adenopat hy without an obvious enhancing abscess. There is right upper molar and premolar dental lucencies which may be causative. There are multiple sub platysmal lymph nodes on the right side measuring up to 1.4 cm. There is no radiopaque foreign body. No significant paranasal sinus disease. Submandibular glands unremarkable. IMPRESSION: Right sided facial findings consistent with inflammatory cellulitis and reactive adenopathy. There i s no focal abscess evident. Right upper molar and premolar dental disease noted. This may be causative. RADIATION DOSE DELIVERED: 852.99mGy.cm Total DLP DATA REPOSITORY: All CT scans at this facility are submitted to the National Radiology Data Registry (NRDR) Dose Index Registry (DIR) with the [employer] (ACR). RADIATION OPTIMIZATION: All CT scans at this facility use at least one of these dose optimization te chniques: automated exposure control; mA and/or kV adjustment per patient size (includes targeted exa ms where dose is matched to clinical indication); or iterative reconstruction.
--- NOTE | 2023-12-13 13:15 | DI.CT_ITS ---
Exam(s) CT NECK W EXAM: CT NECK W INDICATION: Right-sided facial swelling jaw pain. COMPARISON: CT CT HEAD WO from 06/27/2022 TECHNIQUE: FINDINGS: VISUALIZED PARANASAL SINUSES: Unremarkable. NASOPHARYNX: Unremarkable ORODENTAL: Lucency in the right maxillary bone may be related to recent tooth loss or extraction. Th vicky are right upper molar and premolar periapical bone lucencies. There is overlying thickening of t he skin and subcutaneous tissues without an obvious abscess nor fluid in the overlying right maxillar y sinus. OROPHARYNX: Unremarkable. No masses evident. HYPOPHARYNX: Unremarkable. Valleculae and epiglottis and aryepiglottic folds appear normal. VOCAL CORDS: Unremarkable. No masses evident. Subglottic airway appears unremarkable. THYROID GLAND: Unremarkable. Normal size and no obvious nodules. SALIVARY GLANDS: Unremarkable. No significant findings in the parotid and submandibular glands. LYMPH NODES: A few reactive lymph nodes are noted, the largest measuring 1.4 cm x 1.0 cm. OTHER: VISUALIZED LUNG APICES: No significant findings. IMPRESSION: 1. Right-sided neck findings consistent with cellulitis and reactive adenopathy. Possibly related t o right upper dental disease. There is no obvious periodontal abscess. First read by [facility]. RADIATION DOSE DELIVERED: 852.99mGy.cm Total DLP DATA REPOSITORY: All CT scans at this facility are submitted to the National Radiology Data Registry (NRDR) Dose Index Registry (DIR) with the [employer] (ACR). RADIATION OPTIMIZATION: All CT scans at this facility use at least one of these dose optimization te chniques: automated exposure control; mA and/or kV adjustment per patient size (includes targeted exa ms where dose is matched to clinical indication); or iterative reconstruction.
[2023-12-13 13:46] LABS: Abs Immature Grans 0.03 10^3/uL (0.0-0.06); Absolute Basophil Count 0.06 10^3/uL (0.0-0.2); Absolute Eosinophil Count 0.03 10^3/uL (0.0-0.7); Absolute Monocyte Count 0.75 10^3/uL (0.1-0.8); Absolute Neutrophil Count 4.93 10^3/uL (1.2-6.7); Basophils % 0.8; Eosinophils % 0.4; HGB 17.4 g/dL (13.5-17.5); Immature Grans % 0.4; Lymphocytes % 22.7; MCH 33.1 pg (27.0-33.0); MCHC 34.8 % (32.0-36.0); MCV 95 fL (80-95); MPV 9.5 fL (8.0-11.0); Neutrophils % 65.7; Platelet Count 173 10^3/uL (130-400); RBC 5.26 10^6/uL (4.36-5.78); RDW 11.9 % (11.8-14.1); RDW-SD 41.4 fL
[2023-12-13 14:02] LABS: ALT 25 U/L (16-63); AST 20 U/L (15-37); Albumin 4.3 g/dL (3.4-5.0); Alkaline Phosphatase 115 U/L (46-116); Anion Gap 11.6 mmol/L (3-11); BUN 10 mg/dL (7-18); Bilirubin, Total 0.6 mg/dL (0.2-1.0); CO2 28.4 mmol/L (21.0-32.0); Calcium 9.9 mg/dL (8.5-10.1); Chloride 93 mmol/L (98-107); Estimated GFR 88.33 (mL/min/1.73m2); Glucose 94 mg/dL (74-106); Sodium 133 mmol/L (136-145); Total Protein 9.1 g/dL (6.4-8.2)
[2023-12-13] MEDS: Normal Saline 500 ML IV (14:20)
[2023-12-13] MEDS: Omnipaque 350 MG/ML 100 ML BTL IJ (14:36)
[2023-12-13] MEDS: Normal Saline - Diluent 50 ML VIAL IJ (14:36)
[2023-12-13] MEDS: AMPICILLIN/SULBACTAM 3 GM in Normal Saline 100 ML IVPB (15:00)
[2023-12-13 15:02] VITALS: BP 134/85; PULSE 95; RESP 16; O2SAT 99
--- NOTE | 2023-12-13 15:17 | DI.VRAD_ITS ---
PROCEDURE INFORMATION: Exam: CT Neck With Contrast Exam date and time: 12/13/2023 2:32 PM Age: 58 years old Clinical indication: Other: Right sided facial swelling, jaw pain TECHNIQUE: Imaging protocol: Computed tomography of the neck with contrast. Radiation optimization: All CT scans at this facility use at least one of these dose optimization techniques: automated exposure control; mA and/or kV adjustment per patient size (includes targeted exams where dose is matched to clinical indication); or iterative reconstruction. Contrast material: OMNI 350; Contrast volume: 100 ml; Contrast route: INTRAVENOUS (IV); COMPARISON: CT FACIAL WO 12/13/2023 2:32 PM FINDINGS: Limitations: None significant. Brain: The partly visualized brain is unremarkable. Orbital cavities: Normal. Dental: Right upper molar and premolar periapical bone lucencies. Pharynx: Unremarkable. Larynx: Normal. Prevertebral and retropharyngeal spaces: Unremarkable. Salivary glands: Normal. Thyroid: No findings indicating follow up. Lymph nodes: Asymmetrically enlarged lymph nodes from a right supraclavicular neck and right submandibular and right parotid region. These measure up to 10.5 mm short axis. Trachea: Unremarkable. Lungs: Unremarkable. Esophagus: Unremarkable. Bones/joints: No acute fracture or spine stenosis. Vasculature: No stenosis or other abnormality. Soft tissues: Anterior right neck skin thickening and skin nodularity with infiltration/edema in the underlying fat, particularly in the anterior jaw region. No focal soft tissue fluid collection. IMPRESSION: 1. Right neck most compatible with cellulitis and reactive adenopathy. No abscess. 2. Right upper dental disease but without findings concerning for periodontal abscess. Dictated and Authenticated by: David Redmond MD. Ordering:RODRIGO Lewis MD
--- NOTE | 2023-12-13 15:17 | DI.VRAD_ITS ---
PROCEDURE INFORMATION: Exam: CT Maxillofacial Without Contrast Exam date and time: 12/13/2023 2:32 PM Age: 58 years old Clinical indication: Other: Right facial swelling tenderness TECHNIQUE: Imaging protocol: Computed tomography of the face without contrast. Radiation optimization: All CT scans at this facility use at least one of these dose optimization techniques: automated exposure control; mA and/or kV adjustment per patient size (includes targeted exams where dose is matched to clinical indication); or iterative reconstruction. COMPARISON: CT HEAD WO 06/27/2022 5:55 PM FINDINGS: Limitations: None significant. Orbital cavities: Normal optic globes. Normal retrobulbar fat and other adjacent soft tissues. Normal optic nerves and extra-ocular muscles. Bones/joints: No acute fracture. No suspicious bone lesion other than as described below. Paranasal sinuses: Clear. Mastoid air cells: Clear. Lymph nodes: Right submandibular and right-sided submental adenopathy. The lymph nodes measure as much as 10.5 mm short axis. All other lymph nodes are normal. Soft tissues: Right lower face skin thickening, mild nodularity and infiltration/edema in the underlying fat. No focal fluid collection. Vasculature: No atheroscleosis. Brain: The partly visualized brain is unremarkable. Dental: Multilevel right upper premolar and molar periapical bone lucencies. Many teeth are missing. IMPRESSION: 1. Right facial findings most compatible with cellulitis and reactive adenopathy. No abscess. 2. Right molar premolar dental disease is present although findings suspicious for periodontal abscess are not noted. Dictated and Authenticated by: David Redmond MD. Ordering:RODRIGO Lewis MD
[2023-12-13 15:35] VITALS: BP 120/84; PULSE 93; RESP 16; O2SAT 98
--- NOTE | 2023-12-13 15:58 | NUR.NOTE ---
Referral faxed to [facility] for a possible Zoster. would like Pt to be seen on Thursday.
--- NOTE | 2023-12-13 15:59 | NUR.NOTE ---
Referral will be given to Pt to have help finding a Primary Care Physician and to check Facial Infection/Erysipeals within the next 3 days.
[2023-12-13 16:17] VITALS: BP 145/80; PULSE 96; RESP 15; O2SAT 99
[2023-12-13] MEDS: Clindamycin 150 MG CAP 450 MG PO (16:17)
[2023-12-13] MEDS: Acyclovir 400 MG TAB 800 MG PO (16:17)
== END 2023-12-13 16:28 | disposition home or self-care (01) ==
PROVIDERS: Emergency Provider Emergency Medicine
DX: A46 Erysipelas (principal); H62.41 Otitis externa in other diseases classified elsewhere, right ear; B37.0 Candidal stomatitis; B02.9 Zoster without complications; I73.9 Peripheral vascular disease, unspecified; F17.210 Nicotine dependence, cigarettes, uncomplicated; Z86.711 Personal history of pulmonary embolism; Z86.718 Personal history of other venous thrombosis and embolism; Z79.01 Long term (current) use of anticoagulants
CPT/HCPCS: 70491; 80053; 96365; 99285; 70486; 85025; 99284; J0295; J3490

== ENCOUNTER → 2023-12-25 00:24 | Outpatient (CLI) | payer MEDICAID, SELFPAY ==
--- NOTE | 2023-12-25 14:30 | DI.US_ITS ---
APPROVED REPORT EXAM: Comprehensive 2D, Doppler, and color-flow Echocardiogram Patient Location: Out-Patient Water Hauler: Antelmo Mai RDCS (AE) Indications: dyspnea 3 months after pulmonary embolism Conclusion 1. Normal chamber sizes 2. Normal LV function, EF 60-65%. Normal RV function. 3. Anatomically normal valves. No significant regurgitation or stenosis.No pulmonary hypertension. 4. No intracardiac shunt. 5. Trace pericardial effusion. Wall motion Left Ventricle The left ventricle is normal size. The left ventricular systolic function is normal. The left ventric ular ejection fraction is within the normal range. There is normal left ventricular wall thickness. T here is normal LV segmental wall motion. There is no ventricular septal defect visualized. LVEF is 55 -59%. Right Ventricle The right ventricle is normal size. Right ventricular systolic function is grossly normal. Atria The left atrium size is normal. The right atrium size is normal. The interatrial septum is intact wit h no evidence for an atrial septal defect. Aortic Valve The aortic valve is normal in structure. There is no aortic valvular stenosis. No aortic regurgitatio n is present. Mitral Valve The mitral valve is normal in structure. No evidence of mitral valve stenosis. There is no mitral adin ve regurgitation noted. Tricuspid Valve The tricuspid valve is normal in structure. There is no tricuspid valve stenosis. Trace tricuspid reg urgitation. Pulmonic Valve The pulmonary valve is normal in structure. There is no pulmonic valvular stenosis. There is no pulmo konrad valvular regurgitation. Great Vessels The aortic root is normal in size. The ascending aorta is normal in size. IVC is normal in size and c ollapses >50% with inspiration. Pericardium Trace pericardial effusion. 2D Dimensions IVSD d PLAX 0.61 cm M: 0.6-1.2 Ao Root d 3.22 cm M: 3.1 - 3.7 LVPW d PLAX 0.56 cm M: 0.6 - 1.2 Ao Asc Diam d 3.10 cm M: 2.6 - 3.4 LVID d PLAX 5.55 cm M: 4.2 - 5.8 LVDs 3.79 cm M: 2.5 - 4.0 LV EF Teichholz 59.1 % FS 31.73 % LV EDV (Teich) 150.2 mL LV ESV (Teich) 61.4 mL Stroke Vol Index (Teich) 48.02 M-Mode TAPSE 2.21 cm (M/F) >1.7 Auto EF LV EDV A4C 121.6 mL LV EDV A2C 140.2 mL LV EDV BP 129.8 mL LV ESV A4C 55.3 mL LV ESV A2C 62.6 mL LV ESV BP 58.7 mL LVEF(%) A4C 54.6 % LVEF(%) A2C 55.4 % LVEF(%) BP 54.8 % LV SV A4C 66.4 ml LV SV A2C 77.7 ml LV SV BP 71.1 ml LV CO A4C 3.7 L/min LV CO A2C 4.3 L/min LV CO BP 4.0 L/min HR A4C 56.23 BPM HR A2C 55.64 BPM LV EDV Index (BP) LA Volume LA Length A4C 4.1 cm LA Length A2C 4.6 cm LA Area A4C s 10.61 cm2 LA Area A2C s 17.94 cm2 LA Vol A4C A-L 23.42 mL LA Vol A2C A-L 59.31 mL LA Vol Biplane A-L 39.6 mL LA Vol/BSA A4C A-L LA Vol/BSA A2C A-L LA Vol/BSA BP A-L 21.4 mL/m2 LA Vol A4C MOD 22.5 mL LA Vol A2C MOD 58.1 mL LA Vol BP MOD 37.6 mL RA Volume RA Area A4C 11.6 cm2 RA ESV A4C (A-L) 27.5mL RA Vol/BSA A4C A-L RA Length A4C 4.1 cm RA ESV A4C (MOD) 26.4mL LV Diastology MV E' medial 0.103 (>0.07 m/s) MV E Vmax 0.62 (0.4-1.3 m/s) MV E/E' MED 6.00 (<14) MV A Vmax 0.45 (0.4-1.3 m/s) MV E' lateral 0.133 (>0.1 m/s) E/A Ratio 1.4 MV E/E' LAT 4.62 (<14) MV E' Average 0.118 m/s MV E/E'(average) 5.22 Aortic Valve AoV Vmax 1.18 m/s LVOT Vmax 1.01 m/s AoV Peak Grad 5.6 mmHg LVOT Peak Grad 4.1 mmHg AoV Area (Vmax) 3.11 cm2 LVOT VTI 0.204 m AoV VTI 0.254 m LVOT Mean Grad 2.1 mmHg AoV Mean Trevon. 0.79 m/s LVOT SV 74.02 mL AoV Mean Grad 2.9 mmHg LVOT Diam s 2.10 cm AoV Area (VTI) 2.92 cm2 Velocity Ratio 0.86 Mitral Valve MV DT 189 (160-240 msec) Pulmonary Valve PV Vmax 0.81 (0.5-1.5 m/s) RVOT Vmax 0.50 m/s PV Peak Grad 2.6 mmHg RVOT Peak Gr. 1.0 mmHg PV Mean Trevon 0.57 m/s RVOT VTI 0.104 m PV Mean Grad 1.5 mmHg RVOT Mean Gr. 0.4 mmHg
== END ==
PROVIDERS: Visit Provider Student in an Organized Health Care Education/Training Program
DX: I26.99 Other pulmonary embolism without acute cor pulmonale (principal)
CPT/HCPCS: 93306

== ENCOUNTER 2023-12-25 01:59 | Outpatient (CLI) | payer MEDICAID, SELFPAY ==
[2023-12-25 14:41] LABS: D-Dimer 536 ng/mlFEU (<500)
[2023-12-25 22:23] LABS: PSA, Screening 1.2 ng/mL (<=3.5)
[2023-12-28 11:19] LABS: Antithrombin 3, Funct. 121 % (85-125)
[2023-12-28 11:42] LABS: Antithrombin Activity, Plasma 104 % (80 - 130); Protein S Ag, Free 122 % (65 - 160)
[2023-12-30 10:01] LABS: Protein C Ag, P 149 % (72-160)
[2023-12-30 11:26] LABS: Protein C, Functional >150 % (71-199); Protein S, Functional 113 % (73-156)
[2023-12-30 11:41] LABS: Factor V Leiden(R506Q) Mut Negative (Negative); Prothrombin G20210A Mutation Negative (Negative)
[2024-01-05 19:11] LABS: Thrombin-Antithrombin Complex 52.4 ng/mL
== END 2023-12-25 02:00 | disposition home or self-care (01) ==
LOC: LBO 01:59
PROVIDERS: Visit Provider Student in an Organized Health Care Education/Training Program
DX: I26.99 Other pulmonary embolism without acute cor pulmonale (principal)
CPT/HCPCS: 36415; 81240; 81241; 83520; 84153; 85300; 85302; 85305; 85306; 85303; 85379

== ENCOUNTER 2024-06-01 12:35 | Observation (INO) | payer MEDICAID, SELFPAY ==
[2024-06-01] VITALS (44 sets, daily range): BP systolic 139–159; BP diastolic 90–96; PULSE 67–115; RESP 15–16; TEMP 37.2; O2SAT 96
--- NOTE | 2024-06-01 12:30 | RT.EKG_ITS ---
APPROVED REPORT Exam: Resting ECG Reason for Exam: Chest Pain Patient Location: E HR:94 bpm ECG Measurements Heart Rate 94 AXIS ME 141 P 102 QRSd 96 QRS 99 QT 387 T 127 QTc 484 Conclusion Right and left arm electrode reversal, interpretation assumes no reversal Sinus rhythm...normal P axis, V-rate 60- 99 Probable lateral infarct, age indeterminate...Q >35mS, T neg, V5-V6 I aVL Anteroseptal infarct, age indeterminate...Q >35mS, T neg, V1-V2 Physician: no stemi
[2024-06-01] MEDS: Lactated Ringers 1,000 ML 1000 ML IV (13:46)
[2024-06-01 13:49] LABS: Abs Immature Grans 0.06 10^3/uL (0.0-0.06); Absolute Basophil Count 0.13 10^3/uL (0.0-0.2); Absolute Eosinophil Count 0.02 10^3/uL (0.0-0.7); Absolute Lymphocyte Count 1.37 10^3/uL (1.2-3.4); Absolute Monocyte Count 0.89 10^3/uL (0.1-0.8); Absolute Neutrophil Count 19.31 10^3/uL (1.2-6.7); Basophils % 0.6 %; Eosinophils % 0.1 %; HCT 46.6 % (40.0-50.0); Immature Grans % 0.3 %; Lymphocytes % 6.3 %; MCH 31.9 pg (27.0-33.0); MCHC 34.3 % (32.0-36.0); MCV 93 fL (80-95); MPV 9.2 fL (8.0-11.0); Monocytes % 4.1 %; Neutrophils % 88.6 %; Platelet Count 209 10^3/uL (130-400); RBC 5.02 10^6/uL (4.36-5.78); RDW 14.2 % (11.8-14.1); RDW-SD 48.7 fL; WBC 21.79 10^3/uL (4.4-10.8)
[2024-06-01 14:04] LABS: PTT Activated 28.2 sec (23.6-32.8); Prothrombin Time 9.7 sec (9.1-11.1)
[2024-06-01 14:13] LABS: ALT 46 U/L (16-63); AST 36 U/L (15-37); Albumin 4.5 g/dL (3.4-5.0); Alkaline Phosphatase 111 U/L (46-116); Anion Gap 13.6 mmol/L (3-11); BUN 6 mg/dL (7-18); CO2 26.4 mmol/L (21.0-32.0); CREATININE 0.8 mg/dL (0.70-1.30); Calcium 8.7 mg/dL (8.5-10.1); Chloride 97 mmol/L (98-107); ETHANOL BLOOD 237.9 mg/dL (<10); Estimated GFR 103.87 (mL/min/1.73m2); Glucose 85 mg/dL (74-106); Lipase 40 U/L (16-77); NT-proBNP 12 pg/mL (<300); Potassium 3.9 mmol/L (3.5-5.1); Sodium 137 mmol/L (136-145); TSH (W/Ref FT4) 1.25 uIU/mL (0.36-3.74); Total Protein 8.4 g/dL (6.4-8.2)
[2024-06-01 14:16] LABS: Troponin I 123 ng/L (< or =60)
[2024-06-01] MEDS: Normal Saline - Diluent 50 ML VIAL IJ (14:25)
[2024-06-01] MEDS: Omnipaque 350 MG/ML 100 ML BTL IJ (14:26)
--- NOTE | 2024-06-01 14:40 | DI.CT_ITS ---
Exam(s) CT CHEST PE CTA EXAM: CT CHEST PE CTA CLINICAL HISTORY: SOB, pleuritic chest pain,hx of PE, eval for PE. TECHNIQUE: Imaging Protocol: Axial CT angiography was performed with multi-slice acquisition and mu lti-planar and/or 3D reconstructions. CONTRAST MATERIAL: Intravenous: Omnipaque 350 contrast volume:100 mL COMPARISON: CT CT CHEST PE CTA from 06/20/2023 FINDINGS: Tracheobronchial tree: No evidence of bronchiectasis. Pulmonary parenchyma: Mild centrilobular emphysematous changes are present. No focal consolidating i nfiltrates are seen. Pulmonary Arteries: No evidence of filling defect to suggest pulmonary emboli. Mediastinum and Liliana: No dominant adenopathy or fluid collection. The esophagus is unremarkable. Visualized thyroid gland: Unremarkable. Pleura: No effusion or pneumothorax. Heart: The heart is not dilated. Coronary artery calcifications are present. No pericardial effusion . Aorta: Thoracic aorta non-dilated. No evidence of dissection. Atherosclerotic calcification is presen t. Upper abdomen: Decreased attenuation of the liver is seen consistent with fatty infiltration. Soft tissues: Unremarkable. Bones: Within normal limits for the patient's age. IMPRESSION: 1. No evidence of pulmonary embolism, thoracic aortic dissection or aneurysm. 2. No acute pulmonary process. 3. Mild centrilobular emphysematous changes. RADIATION DOSE DELIVERED: 336.54mGy.cm Total DLP DATA REPOSITORY: All CT scans at this facility are submitted to the National Radiology Data Registry (NRDR) Dose Index Registry (DIR) with the [employer] (ACR). RADIATION OPTIMIZATION: All CT scans at this facility use at least one of these dose optimization te chniques: automated exposure control; mA and/or kV adjustment per patient size (includes targeted exa ms where dose is matched to clinical indication); or iterative reconstruction.
--- NOTE | 2024-06-01 15:34 | ED.GENADUL_ITS ---
Discharge Plan Disposition Patient Disposition: Admit to [facility] Condition: Serious Discharge Details Clinical Impression: Chest pain, pleuritic, Non-ST elevation [place] (NSTEMI) Admit Date/Time: 06/02/24 01:24 Admit Provider: Roger Hyman Attending Provider: Roger Hyman Primary Care Provider: Jeremy Hinton ED Provider: Sanjuana Aguilera Discharge Data Discharge Date/Time-TO BE ENTERED AT DEPARTURE: 06/02/24 02:47 HPI General Date/Time Provider Initiated Documentation: 06/01/24 13:21 . HPI Narrative: 58-year-old male with a past medical history of previous DVT and PE previously on Eliquis, but no longer regularly on it, alcohol use, who lives in a camper at this time, presents today for evaluation of chest pain shortness of breath. Patient states that he woke up this morning and had mild pleuritic chest pain located in both lungs only when he takes a deep breath. He denies any fever or chills, vomiting or diarrhea, stabbing or ripping or tearing sensation. He states that the pain is only present when he tries to take a deep breath. He denies any recent long trips surgeries or procedures. He did take one of his old Eliquis tablets this morning. Again he has not been on Eliquis for months otherwise. He denies hemoptysis. No other complaints at this time. No other modifying factors. He denies any history of cardiac disease. He denies any trauma. Related Data Home Medications Medication Instructions Recorded Confirmed albuterol sulfate 90 mcg/actuation 2 puff inhalation Q6H PRN 09/22/23 06/01/24 aerosol inhaler shortness of breath or wheezing #8.5 grams aspirin 325 mg tablet 650 mg (2 x 325 mg) PO TID #90 tabs 06/03/24 atorvastatin 80 mg tablet 80 mg PO QHS #90 tabs 06/03/24 colchicine 0.6 mg tablet (Colcrys) 0.6 mg PO BID #30 tabs 06/03/24 nicotine 21 mg/24 hr daily 1 patch transdermal Q24H #28 ea 06/03/24 transdermal patch (Nicoderm CQ) pantoprazole 40 mg tablet,delayed 40 mg PO DAILY@30 #30 tabs 06/03/24 release Previous Rx's Medication Instructions Recorded albuterol sulfate 90 mcg/actuation 2 puff inhalation Q6H PRN 09/22/23 aerosol inhaler shortness of breath or wheezing #8.5 grams aspirin 325 mg tablet 650 mg (2 x 325 mg) PO TID #90 tabs 06/03/24 atorvastatin 80 mg tablet 80 mg PO QHS #90 tabs 06/03/24 colchicine 0.6 mg tablet (Colcrys) 0.6 mg PO BID #30 tabs 06/03/24 nicotine 21 mg/24 hr daily 1 patch transdermal Q24H #28 ea 06/03/24 transdermal patch (Nicoderm CQ) pantoprazole 40 mg tablet,delayed 40 mg PO DAILY@0730 #30 tabs 06/03/24 release Allergies Allergy/AdvReac Type Severity Reaction Status Date / Time No Known Allergies Allergy Unverified 06/01/24 12:45 General Stated Complaint: Chest Pain FRANK: 3 Review of Systems All systems reviewed & are unremarkable except as noted in HPI and below Exam Narrative Exam Narrative: 1.Const: Well-nourished, Well-developed, appearing stated age 2.Eyes: PERRL, no conjunctival injection, and symmetrical lids. 3.ENT: Atraumatic external nose and ears. Moist MM. Neck: Symmetric, trachea midline, No thyromegaly. 4.CVS: +S1/S2, No murmurs or gallops. Peripheral pulses 2+ and equal in all extremities. Brisk capillary refill in all extremities. 5.RESP: Unlabored respiratory effort. Clear to auscultation bilaterally. No wheezes rales or rhonchi 6.GI: Soft, Nontender/Nondistended, No hepatosplenomegaly. No guarding or rebound. 7.MSK: Normocephalic/Atraumatic, Extremities w/o deformity or ttp No cyanosis or clubbing, Normal movement of all extremities 8.Skin: Warm, Dry. No rashes or lesions. 9.Neuro: professor of communication and writing II-XII grossly intact. Sensation grossly intact, no focal neurologic deficits. 10.Psych: (AAO) x3. Appropriate mood and affect Course Vital Signs Vital signs: Vital Signs Temperature 37.2 C 06/01/24 12:40 Pulse 110 H 06/01/24 12:40 Respiratory Rate 16 06/01/24 12:40 Blood Pressure 159/96 H 06/01/24 12:40 Pulse Oximetry 96 06/01/24 12:40 Temperature 37.2 C 06/01/24 12:40 Temperature Source Temporal Artery Scan 06/01/24 12:40 Pulse 110 H 06/01/24 12:40 Pulse 97 H 06/01/24 15:00 Respiratory Rate 15 06/01/24 15:24 Respiratory Effort Normal 06/01/24 15:24 Respiratory Depth Normal 06/01/24 15:24 Respiratory Pattern Normal 06/01/24 15:24 Blood Pressure 159/96 H 06/01/24 12:40 Blood Pressure Position Sitting 06/01/24 12:40 Pulse Oximetry 96 06/01/24 12:40 Oxygen Delivery Method Room Air 06/01/24 12:40 Oxygen Flow Rate 0 06/01/24 12:40 Pain Level 10 06/01/24 12:40 Lab/Test Results Lab/Test Results: Laboratory Tests Range/Units 06/01/24 06/01/24 13:35 13:37 WBC (4.4-10.8) 10^3/uL 21.79 H RBC (4.36-5.78) 10^6/uL 5.02 Hgb (13.5-17.5) g/dL 16.0 Hct (40.0-50.0) % 46.6 MCV (80-95) fL 93 MCH (27.0-33.0) pg 31.9 MCHC (32.0-36.0) % 34.3 RDW (11.8-14.1) % 14.2 H Plt Count (130-400) 10^3/uL 209 MPV (8.0-11.0) fL 9.2 Immature Gran % % 0.3 Neutrophils % % 88.6 Lymphocytes % % 6.3 Monocytes % % 4.1 Eosinophils % % 0.1 Basophils % % 0.6 Nucleated RBC % (0.0-0.3) % 0.0 Absolute Neutrophils (1.2-6.7) 10^3/uL 19.31 H Absolute Lymphocytes (1.2-3.4) 10^3/uL 1.37 Absolute Monocytes (0.1-0.8) 10^3/uL 0.89 H Absolute Eosinophils (0.0-0.7) 10^3/uL 0.02 Absolute Basophils (0.0-0.2) 10^3/uL 0.13 PT (9.1-11.1) sec 9.7 INR (0.9-1.1) 1.0 APTT (23.6-32.8) sec 28.2 Sodium (136-145) mmol/L 137 Potassium (3.5-5.1) mmol/L 3.9 Chloride (98-107) mmol/L 97 L Carbon Dioxide (21.0-32.0) mmol/L 26.4 Anion Gap (3-11) mmol/L 13.6 H BUN (7-18) mg/dL 6 L Creatinine (0.70-1.30) mg/dL 0.8 Est GFR (CKD-EPI 2020) (mL/min/1.73m2) 103.87 Glucose (74-106) mg/dL 85 Calcium (8.5-10.1) mg/dL 8.7 Total Bilirubin (0.2-1.0) mg/dL 0.50 AST (15-37) U/L 36 ALT (16-63) U/L 46 Alkaline Phosphatase (46-116) U/L 111 Troponin I (< or =60) ng/L 123 H* NT-Pro-B Natriuret Pep (<300) pg/mL 12 Cancelled Total Protein (6.4-8.2) g/dL 8.4 H Albumin (3.4-5.0) g/dL 4.5 Lipase (16-77) U/L 40 Cancelled TSH (0.36-3.74) uIU/mL 1.25 Cancelled Ethyl Alcohol (<10) mg/dL 237.9 H Medical Decision Making 58-year-old male with a past medical history of previous DVT and PE previously on Eliquis, but no longer regularly on it, alcohol use, who lives in a camper at this time, presents today for evaluation of chest pain shortness of breath. Patient states that he woke up this morning and had mild pleuritic chest pain located in both lungs only when he takes a deep breath. He denies any fever or chills, vomiting or diarrhea, stabbing or ripping or tearing sensation. He states that the pain is only present when he tries to take a deep breath. He denies any recent long trips surgeries or procedures. He did take one of his old Eliquis tablets this morning. Again he has not been on Eliquis for months otherwise. He denies hemoptysis. No other complaints at this time. No other modifying factors. He denies any history of cardiac disease. He denies any trauma. Exam demonstrates a well-appearing male, no signs of shingles or trauma. No reproducible chest wall tenderness. Radial pulses +2 bilaterally. Patient does appear very mildly intoxicated. Will check for PE, cardiac etiology, ACS, differential also includes myopericarditis, muscle strain, or pneumonia or pneumothorax. Will monitor closely and reassess. 3:38 PM EKG benign,Troponin mildly elevated. Aspirin has been given. Patient does have an elevated white count of 21.79, moderate left shift but no bandemia. Electrolytes normal. Renal function stable. Anion gap slightly elevated at 13. He has been rehydrated with a liter of LR. Alcohol is 237. Thyroid function normal. Thyroid function normal. Patient continues to deny fever or chills. He denies headache, cough, abdominal pain or low back pain. He denies IV drug use. With his elevated white count however his lack of other symptoms like fever or hypotension, I do not suspect or have a high suspicion for bacterial infectious etiology. Dehydration may certainly be a component. Out of an abundance of precaution we will get blood cultures and a procalcitonin and check a urine as well. While initial troponin is elevated, he does chronically have a mildly elevated troponin. We are pending repeat troponin at this time. 4:58 PM Patient feeling much better after IV fluids. Urinalysis negative for evidence of infection. No bandemia on CBC. Procalcitonin normal. No other significant abnormality. Patient feels well. Patient clinically sober at this time after prolonged observation. Physical exam and reassessment and clinical evaluation at this time shows no evidence of acute life-threatening etiology to suggest PE, dissection, sepsis, pneumonia, pyelonephritis, or other acute etiology. Chest pain remains benign at this time on repeat exam. We are pending repeat troponin. With the initial elevated troponin we have reached out to [facility] and are awaiting callback. Patient will be signed out for repeat troponin and disposition. FINDINGS: Tracheobronchial tree: No evidence of bronchiectasis. Pulmonary parenchyma: Mild centrilobular emphysematous changes are present. No focal consolidating infiltrates are seen. Pulmonary Arteries: No evidence of filling defect to suggest pulmonary emboli. Mediastinum and Liliana: No dominant adenopathy or fluid collection. The esophagus is unremarkable. Visualized thyroid gland: Unremarkable. Pleura: No effusion or pneumothorax. Heart: The heart is not dilated. Coronary artery calcifications are present. No pericardial effusion. Aorta: Thoracic aorta non-dilated. No evidence of dissection. Atherosclerotic calcification is present. Upper abdomen: Decreased attenuation of the liver is seen consistent with fatty infiltration. Soft tissues: Unremarkable. Bones: Within normal limits for the patient's age. IMPRESSION: 1. No evidence of pulmonary embolism, thoracic aortic dissection or aneurysm. 2. No acute pulmonary process. 3. Mild centrilobular emphysematous changes. Quality:SDOH Health Related Social Needs: Health related social needs inadequate housing, materi al hardship Health related social needs details Transportation, ho using PFSH All Active Problems Acute myopericarditis (Acute) Hyperlipemia (Acute) Elevated troponin I level (Acute) Chest pain, pleuritic (Acute) Memory deficit (Acute) Mood disorder (Acute) Low back pain (Acute) Nicotine dependence, cigarettes, uncomplicated (Acute) Tubular adenoma of colon (Acute) Sessile colonic polyp (Acute) S/P colonoscopy (Acute) Colonic diverticular abscess (Acute) Abscess of rectum (Acute) History of back surgery (Acute) Medical History Pleural effusion Acute deep vein thrombosis (DVT) of left lower extremity Pulmonary emboli Family History Mother Cancer Father Cancer Social History Smoking/Tobacco Use Status: Current every day Tobacco Type: cigarettes Smoking packs per day: 1 Smoking cigarettes per day: 20.0 Quit status: not considering quitting Second Hand Exposure: Yes Smoking risk assessment performed?: Yes Alcohol Intake: current Alcohol Intake frequency: a few times a week Alcohol type: beer Drug use: Occasionally Substance use type: marijuana Housing: other Current gender identity: male Do you feel safe at home: Yes Do you feel safe in your relationship?: Yes Sign Out Sign Out Data: Sign Out Comment: Pending repeat troponin. Pending [facility] call back. May require admission. Initial slightly elevated compared to baseline. Last updated by Som Mas DO at 06/01/24 17:02 Sign Out Comment: Please follow-up consultation with [facility] [place] given elevated heart score. Last updated by Joshua Lugo MD at 06/02/24 00:28
[2024-06-01 16:24] LABS: Bilirubin Negative (Negative); Blood Trace-intact (Negative); Clarity Clear (Clear); Glucose Negative (Negative); Ketones 40 mg/dL (Negative); Leukocyte Esterase Negative (Negative); Nitrite Negative (Negative); Urobilinogen 0.2 mg/dL (Up to 0.2); pH 5.5 (5-8)
[2024-06-01 16:25] LABS: Procalcitonin < 0.1 ng/mL
[2024-06-01 16:33] LABS: Bacteria Negative HPF (Negative); C & S Indicated? No; Casts Negative LPF (Negative); Crystals Negative HPF (Negative); Epithelial Cells Rare HPF (Negative); Mucus Negative (Negative); RBC 0-2 HPF (0-2); WBC 0-2 HPF (0-5)
[2024-06-01] MEDS: Aspirin 325 MG TAB PO (17:05)
[2024-06-01 17:15] LABS: Troponin I 106 ng/L (< or =60)
--- NOTE | 2024-06-01 17:25 | ED.PROG_ITS ---
Date of service: 06/01/24 Time of Service: 17:25 Medical Decision Making I received signout on this 58-year-old male with a prior history of PE off of apixaban now in the emergency department in the setting of chest pain shortness of breath found to have NSTEMI. Patient has received 325 mg of aspirin. He has a chronic elevation of his troponin which is slightly worse today. His repeat troponin shows slight improvement. Cardiology has been paged. His CTA was negative for PE. HEART SCORE Chest pain Diagnostic Protocol: [- History/Physical/Gestalt: Moderately Suspicious (+1)] [- EKG: Nonspecific repolarization (+1)] [- AGE: 45-65 (+1)] [- RISK FACTORS: 1 - 2 risk factors (+1)] [- TROPONIN: >1 - < 3 x normal limit (+1)] - TOTAL SCORE: 5 - Risk Factors: DM, current or recent smoker, HTN, HLD, family hx of CAD, obesity 12:28 AM Late charting due to patient care. Unfortunately I missed the initial call back from cardiology at [facility]. They have been repaged. I signed patient out to the oncoming overnight provider. Quality:SDOH Health Related Social Needs: Health related social needs inadequate housing, risk o f homeless, food insecurity, transpo insecurity, material hardship Health related social needs details Transportation, ho using Sign Out Sign Out Data: Sign Out Comment: Pending repeat troponin. Pending [facility] call back. May require admission. Initial slightly elevated compared to baseline. Last updated by Som Mas DO at 06/01/24 17:02 Discharge Plan Disposition Patient Disposition: Home Condition: Good Discharge Details Clinical Impression: Chest pain, pleuritic, Non-ST elevation [place] (NSTEMI) Primary Care Provider: Jeremy Hinton ED Provider: Joshua Lugo Home Meds and New Rx's Prescriptions: No Action acetaminophen [Tylenol Extra Strength] 500 mg tablet See Rx Instructions PO DIRECTED PRN Patient Comments: states can't afford Rx Instructions: orally as directed PRN; albuterol sulfate 90 mcg/actuation HFA aerosol inhaler 2 puff inhalation Q6H PRN (Reason: shortness of breath or wheezing) Qty: 8.5 12RF Discharge Instructions Instructions: Chest Pain, Adult ED Referrals: Jeremy Hinton, DENTAL ASSOCIATE [Primary Care Provider] -
[2024-06-02] VITALS (8 sets, daily range): BP systolic 120–146; BP diastolic 80–99; PULSE 57–88; RESP 16–18; TEMP 36.2–38.1; O2SAT 95–99
[2024-06-02] LABS: Troponin I 92 ng/L (< or =60)
--- NOTE | 2024-06-02 01:09 | W.EDPROG ---
Date of service: 06/02/24 Time of Service: 00:00 Medical Decision Making This patient was signed out to me. Please see previous notes for H&P and initial eval. In brief, 58yo M with hx of PE, on eliquis but not taking, woke this morning with pleuritic chest pain and took eliquis at that time. Given ASA here in the ED. ED workup with CT chest negative for PE or acute pulmonary pathology; troponin on arrival elevated at 106 with repeats downtrending. HEART score 5. Currently chest pain free. Signed out pending [facility] cardiology consult. Discussed with Dr. Green [facility] cardiology; overall not thought to be consistent with T1 NSTEMI and no indication for emergent/urgent cath; did advised admission for trending troponin, monitor for reccurrence of chest pain, echo when available. On my assessment patient reports resumed pleuritic chest pain, squeezing, states on and off all day. Repeat EKG with no occlusive ischemic changes. Discussed with [facility] hospitalist Dr. Hyman; accepted to medicine service. Awaiting admission orders and transfer to the floor. Quality:[facility] Health Related Social Needs: Health related social needs inadequate housing, risk of homeless, food insecurity, transpo insecurity, material hardship Health related social needs details Transportation, housing Sign Out Sign Out Data: Sign Out Comment: Pending repeat troponin. Pending [facility] call back. May require admission. Initial slightly elevated compared to baseline. Last updated by Som Mas DO at 06/01/24 17:02 Sign Out Comment: Please follow-up consultation with [facility] [place] cardiology given elevated heart score. Last updated by Joshua Lugo MD at 06/02/24 00:28 Discharge Plan Disposition Patient Disposition: Admit to [facility] Condition: Serious Discharge Details Clinical Impression: Chest pain, pleuritic, Non-ST elevation [place] (NSTEMI) Primary Care Provider: Jeremy Hinton ED Provider: Sanjuana Aguilera Home Meds and New Rx's Prescriptions: No Action acetaminophen [Tylenol Extra Strength] 500 mg tablet See Rx Instructions PO DIRECTED PRN Patient Comments: states can't afford Rx Instructions: orally as directed PRN; albuterol sulfate 90 mcg/actuation HFA aerosol inhaler 2 puff inhalation Q6H PRN (Reason: shortness of breath or wheezing) Qty: 8.5 12RF Discharge Instructions Instructions: Chest Pain, Adult ED Referrals: Jeremy Hinton, [employer] [Primary Care Provider] -
--- NOTE | 2024-06-02 01:15 | RT.EKG_ITS ---
APPROVED REPORT Exam: Resting ECG Reason for Exam: chest pain Patient Location: E HR:72 bpm ECG Measurements Heart Rate 72 AXIS WV 122 P 73 QRSd 100 QRS 86 QT 428 T 72 QTc 470 Conclusion Sinus rhythm...normal P axis, V-rate 60- 99 Nonspecific T abnrm, anterolateral leads...T <-0.10mV, I aVL V2-V6
--- NOTE | 2024-06-02 01:32 | W.PM.HP.N ---
Date of service: 06/02/24 Time of Service: 01:33 Assessment and Plan Assessment and plan (1) Chest pain, pleuritic: Status: Acute Assessment and plan: Suspicious for pericarditis/remy-epicarditis given the pleuritic nature of the pain, the minimal troponin leak and a bedside echo which did not reveal any RWMA and overall normal LV and RV function. Will treat w/ colchicine and motrin w/ GI protection w/ protonix (2) Elevated troponin I level: Status: Acute Assessment and plan: continue to trend troponin, obtain formal echo when available. Patient needs to quit smoking to help reduce risk for coronary event. Consideration for outpatient stress MPI when recovered from current event. 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 Blackwood, pulmonology, 01/11/24. DVT was of his left popliteal vein (dx by POCUS by Dr. Arias) and +CTA chest that demonstrated multiple segmental thrombi to right middle, RLL and LLL this was not accompanied by any RV strain. He also has centrilobular emphysema but his PFT do not support a dx of COPD. Patient presented yesterday afternooon to the emergency room at 12:40 pm w/ complaints of pleuritic chest pain associated w/ dyspnea, no fever or chills or sputum production. This occurred around 8:30 am when he walked from [place] up to his neighbors (about 3 minute walk uphill) to obtain some batteries for his radio. CP is described as pressure, substernal, worsens w/ deep breathing, no radiation into jaw, arms or back. No nausea or diaphoresis. he took one of his old Elquis as he thought this to be similar to his P.E. last year. Evaluation in the E.D. included EKG, labs including CBC, CMP, troponin, pro-BNP, and CTA chest. EKG demonstrated sinus rhythm, arm lead reversal and poor R wave progression across anterior leads similar to prior ECG from 06/20/23. CTA did not show any P.E. nor any aortic aneurysm nor any acute pulmonary process but did show centrilobular emphysema, no pleural or pericaridial effusions and fatty liver changes. Labs were remarkable for elevated troponin I 123 which has trended down since then to 106 > 92 (last one was at 23:35). Repeat EKG was done at 1:19 am and shows non-specific ST-T abnormalities in the anterior leads. Rest of labs were remarkable for normal procalcitonin <0.1, ESR 14, WBC 21,790, no anemia (note patient came off 5 day course of prednisone for acute back/neck injury/strain, finished this on Thursday (4 days ago), normal pro-BNP 12, elevated CRP of 5.47. Blood alcohol level 237 mg/dL on admission. Patient had been drinking w/ his neighbor the night before and also had a beer the morning of presentation to the E.D. Patient was loaded w/ aspirin 324 mg and given LR x 1000 mL. [facility] cardiology was called Eventually they returned the call to the E.D. and per Dr. Aguilera, Dr. Green from [facility] reviewed the case and did not feel that this was a type I NSTEMI and recommended observation w/ serial troponin, echo when available and monitor overnight. Because his CP never cleared and waxed and waned all day, repeat EKG was performed. Patient was treated w/ Toradol 15 mg IVP which brought his CP down from 8 to a 2 or 3. He is now comfortable and not short of breath. He denies any recent URI or fever or chills or cough. Review of Systems All systems reviewed & are unremarkable except as noted in HPI and below PFSH All Active Problems Elevated troponin I level (Acute) Non-ST elevation VA (NSTEMI) (Acute) Chest pain, pleuritic (Acute) Memory deficit (Acute) Mood disorder (Acute) Low back pain (Acute) Nicotine dependence, cigarettes, uncomplicated (Acute) Tubular adenoma of colon (Acute) Sessile colonic polyp (Acute) S/P colonoscopy (Acute) Colonic diverticular abscess (Acute) Abscess of rectum (Acute) History of back surgery (Acute) Medical History Pleural effusion Acute deep vein thrombosis (DVT) of left lower extremity Pulmonary emboli Family History Mother Cancer Father Cancer Social History Smoking/Tobacco Use Status: Current every day Tobacco Type: cigarettes Smoking packs per day: 1 Smoking cigarettes per day: 20.0 Quit status: not considering quitting Second Hand Exposure: Yes Smoking risk assessment performed?: Yes Alcohol Intake: current Alcohol Intake frequency: a few times a week Alcohol type: beer Drug use: Occasionally Substance use type: marijuana Current gender identity: male Do you feel safe at home: Yes Do you feel safe in your relationship?: Yes Meds Allergies and Home Medications Allergies Allergy/AdvReac Type Severity Reaction Status Date / Time No Known Allergies Allergy Unverified 06/01/24 12:45 Home Medications Medication Instructions Recorded Confirmed Type acetaminophen 500 mg tablet See Rx Instructions PO DIRECTED 09/22/23 06/01/24 History (Tylenol Extra Strength) PRN albuterol sulfate 90 mcg/actuation 2 puff inhalation Q6H PRN 09/22/23 06/01/24 Rx aerosol inhaler shortness of breath or wheezing #8.5 grams Exam Narrative Exam Narrative: Middle-age white male lying on the gurney in the emergency department he is alert and orient x 3 no acute respiratory distress able to talk in complete sentences. I had him sit up and he said his chest pain felt slightly better with sitting as opposed to lying flat. He has no cough HEENT is unremarkable Neck supple nontender no JVD normal carotid pulses no bruits Lungs with some fine end expiratory wheeze with forceful exhalation chest pain was reproduced with deep breathing. Chest wall nontender to palpation Heart regular rate and rhythm no murmur, no rub, no gallop normal S1 and S2 Abdomen soft and nontender no organomegaly normal bowel sounds no bruits Extremities without peripheral cyanosis or edema Results Imaging CT scan - chest: report reviewed EKG: image reviewed Imaging Studies: Bedside POCUS echo showed no RWMA, no significant valvular disease and no pericardial effusion, normal RV and LV systolic function. Labs 06/01/24 13:35 06/01/24 13:35 Labs: Laboratory Results - last 24 hr 06/01/24 06/01/24 06/01/24 13:35 13:37 15:45 WBC 21.79 H RBC 5.02 Hgb 16.0 Hct 46.6 MCV 93 MCH 31.9 MCHC 34.3 RDW 14.2 H Plt Count 209 MPV 9.2 Immature Gran % 0.3 Neutrophils % 88.6 Lymphocytes % 6.3 Monocytes % 4.1 Eosinophils % 0.1 Basophils % 0.6 Nucleated RBC % 0.0 Absolute Neutrophils 19.31 H Absolute Lymphocytes 1.37 Absolute Monocytes 0.89 H Absolute Eosinophils 0.02 Absolute Basophils 0.13 PT 9.7 INR 1.0 APTT 28.2 Sodium 137 Potassium 3.9 Chloride 97 L Carbon Dioxide 26.4 Anion Gap 13.6 H BUN 6 L Creatinine 0.8 Est GFR (CKD-EPI 2020) 103.87 Glucose 85 Calcium 8.7 Total Bilirubin 0.50 AST 36 ALT 46 Alkaline Phosphatase 111 Troponin I 123 H* NT-Pro-B Natriuret Pep 12 Cancelled Total Protein 8.4 H Albumin 4.5 Lipase 40 Cancelled Procalcitonin < 0.1 TSH 1.25 Cancelled Urine Color Urine Clarity Urine pH Ur Specific [place] Urine Protein Urine Ketones Urine Blood Urine Nitrite Urine Bilirubin Urine Urobilinogen Ur Leukocyte Esterase Urine RBC Urine WBC Ur Epithelial Cells Urine Crystals Urine Bacteria Urine Casts Urine Mucus Ur Culture Indicated? Urine Glucose Ethyl Alcohol 237.9 H 06/01/24 06/01/24 06/01/24 16:03 16:48 23:35 WBC RBC Hgb Hct MCV MCH MCHC RDW Plt Count MPV Immature Gran % Neutrophils % Lymphocytes % Monocytes % Eosinophils % Basophils % Nucleated RBC % Absolute Neutrophils Absolute Lymphocytes Absolute Monocytes Absolute Eosinophils Absolute Basophils PT INR APTT Sodium Potassium Chloride Carbon Dioxide Anion Gap BUN Creatinine Est GFR (CKD-EPI 2020) Glucose Calcium Total Bilirubin AST ALT Alkaline Phosphatase Troponin I 106 H* 92 H* NT-Pro-B Natriuret Pep Total Protein Albumin Lipase Procalcitonin TSH Urine Color Yellow Urine Clarity Clear Urine pH 5.5 Ur Specific [place] 1.010 Urine Protein Negative Urine Ketones 40 H Urine Blood Trace-intact H Urine Nitrite Negative Urine Bilirubin Negative Urine Urobilinogen 0.2 Ur Leukocyte Esterase Negative Urine RBC 0-2 Urine WBC 0-2 Ur Epithelial Cells Rare Urine Crystals Negative Urine Bacteria Negative Urine Casts Negative Urine Mucus Negative Ur Culture Indicated? No Urine Glucose Negative Ethyl Alcohol Last Vital Signs Temp 37.2 C 06/01/24 12:40 Pulse 107 H 07/03/24 16:53 Resp 15 06/01/24 15:24 BP 139/90 06/01/24 16:53 Pulse Ox 96 06/01/24 16:53 Time Spent Time spent with Patient: 55-74 minutes Time was spent: preparing to see the patient(eg.review tests), obtaining and/or reviewing separately otained hiistory, ordering medications,tests, procedures, referring, communicating with other health in home caregiver, indepentently interpreting results, counseling the patient and care coordination
[2024-06-02 01:38] LABS: Lab Add On Test DONE
[2024-06-02] MEDS: Ketorolac 15 MG/ML VIAL IVP (01:45)
[2024-06-02 01:52] LABS: ESR 14 mm/hr (0-20)
[2024-06-02 02:09] LABS: C-Reactive Protein 5.47 mg/dL (<or=0.5); NT-proBNP 60 pg/mL (<300)
--- NOTE | 2024-06-02 02:43 | W.PC.ACHO ---
Registration Status: REG ER Primary Language: Preferred Language: ED Information & Data Chief Complaint Chest Pain 06/01/24 15:40 Triage Note CP/SOB with inhale, pain 06/01/24 12:40 severe on inhale, hx of PE last year, took old Eliquis at 0900, tachy to 110 on arrival, EKG in triage, HTN, O2 sats 99, pain to left shoulder, hx of short term memory issues. Most Recent Vital Signs Temperature 37.2 C 06/01/24 12:40 Temperature Source Temporal Artery Scan 06/01/24 12:40 Pulse 107 H 06/01/24 16:53 Pulse 97 H 06/01/24 21:40 Respiratory Rate 15 06/01/24 15:24 Respiratory Effort Normal 06/01/24 15:24 Respiratory Depth Normal 06/01/24 15:24 Respiratory Pattern Normal 06/01/24 15:24 Blood Pressure 139/90 06/01/24 16:53 Blood Pressure Position Sitting 06/01/24 12:40 Pulse Oximetry 96 06/01/24 16:53 Oxygen Delivery Method Room Air 06/01/24 16:53 Oxygen Flow Rate 0 06/01/24 16:53 Pain Level 10 06/01/24 12:40 Allergies No Known Allergies Allergy (Unverified 06/01/24 12:45) Active Medications Generic Name Dose Route Start Last Admin Trade Name Braedenq PRN Reason Stop Dose Admin Iohexol 100 ml 06/01/24 14:30 06/01/24 14:26 Omnipaque 350 Mg/Ml 100 Ml Btl IJ 07/01/24 23:59 100 ml DIRECTED TEDDY Administration Sodium Chloride 50 ml 06/01/24 14:30 06/01/24 14:25 Normal Saline - Diluent 50 Ml Vial IJ 50 ml .FOR DI USE TEDDY Administration IV IV Catheter Type [Right Saline Lock Antecubital] IV Catheter Gauge [Right 18 Antecubital] Diagnostics 06/02/24 06/01/24 06/01/24 Range/Units 01:31 23:35 16:48 WBC (4.4-10.8) 10^3/uL RBC (4.36-5.78) 10^6/uL Hgb (13.5-17.5) g/dL Hct (40.0-50.0) % MCV (80-95) fL MCH (27.0-33.0) pg MCHC (32.0-36.0) % RDW (11.8-14.1) % Plt Count (130-400) 10^3/uL MPV (8.0-11.0) fL Immature Gran % % Neutrophils % % Lymphocytes % % Monocytes % % Eosinophils % % Basophils % % Nucleated RBC % (0.0-0.3) % Absolute Neutrophils (1.2-6.7) 10^3/uL Absolute Lymphocytes (1.2-3.4) 10^3/uL Absolute Monocytes (0.1-0.8) 10^3/uL Absolute Eosinophils (0.0-0.7) 10^3/uL Absolute Basophils (0.0-0.2) 10^3/uL ESR (0-20) mm/hr PT (9.1-11.1) sec INR (0.9-1.1) APTT (23.6-32.8) sec Sodium (136-145) mmol/L Potassium (3.5-5.1) mmol/L Chloride (98-107) mmol/L Carbon Dioxide (21.0-32.0) mmol/L Anion Gap (3-11) mmol/L BUN (7-18) mg/dL Creatinine (0.70-1.30) mg/dL Est GFR (CKD-EPI 2020) (mL/min/1.73m2) Glucose (74-106) mg/dL Calcium (8.5-10.1) mg/dL Total Bilirubin (0.2-1.0) mg/dL AST (15-37) U/L ALT (16-63) U/L Alkaline Phosphatase (46-116) U/L Troponin I 92 H* 106 H* (< or =60) ng/L C-Reactive Protein 5.47 H (<or=0.5) mg/dL NT-Pro-B Natriuret Pep 60 (<300) pg/mL Total Protein (6.4-8.2) g/dL Albumin (3.4-5.0) g/dL Lipase (16-77) U/L Procalcitonin ng/mL TSH (0.36-3.74) uIU/mL Urine Color (Yellow) Urine Clarity (Clear) Urine pH (5-8) Ur Specific [place] (1.005-1.025) Urine Protein (Neg-Trace) mg/dL Urine Ketones (Negative) mg/dL Urine Blood (Negative) Urine Nitrite (Negative) Urine Bilirubin (Negative) Urine Urobilinogen (Up to 0.2) mg/dL Ur Leukocyte Esterase (Negative) Urine RBC (0-2) HPF Urine WBC (0-5) HPF Ur Epithelial Cells (Negative) HPF Urine Crystals (Negative) HPF Urine Bacteria (Negative) HPF Urine Casts (Negative) LPF Urine Mucus (Negative) Ur Culture Indicated? Urine Glucose (Negative) mg/dL Ethyl Alcohol (<10) mg/dL Add-On Test Request DONE 06/01/24 06/01/24 06/01/24 Range/Units 16:03 15:45 13:38 WBC (4.4-10.8) 10^3/uL RBC (4.36-5.78) 10^6/uL Hgb (13.5-17.5) g/dL Hct (40.0-50.0) % MCV (80-95) fL MCH (27.0-33.0) pg MCHC (32.0-36.0) % RDW (11.8-14.1) % Plt Count (130-400) 10^3/uL MPV (8.0-11.0) fL Immature Gran % % Neutrophils % % Lymphocytes % % Monocytes % % Eosinophils % % Basophils % % Nucleated RBC % (0.0-0.3) % Absolute Neutrophils (1.2-6.7) 10^3/uL Absolute Lymphocytes (1.2-3.4) 10^3/uL Absolute Monocytes (0.1-0.8) 10^3/uL Absolute Eosinophils (0.0-0.7) 10^3/uL Absolute Basophils (0.0-0.2) 10^3/uL ESR 14 (0-20) mm/hr PT (9.1-11.1) sec INR (0.9-1.1) APTT (23.6-32.8) sec Sodium (136-145) mmol/L Potassium (3.5-5.1) mmol/L Chloride (98-107) mmol/L Carbon Dioxide (21.0-32.0) mmol/L Anion Gap (3-11) mmol/L BUN (7-18) mg/dL Creatinine (0.70-1.30) mg/dL Est GFR (CKD-EPI 2020) (mL/min/1.73m2) Glucose (74-106) mg/dL Calcium (8.5-10.1) mg/dL Total Bilirubin (0.2-1.0) mg/dL AST (15-37) U/L ALT (16-63) U/L Alkaline Phosphatase (46-116) U/L Troponin I (< or =60) ng/L C-Reactive Protein (<or=0.5) mg/dL NT-Pro-B Natriuret Pep (<300) pg/mL Total Protein (6.4-8.2) g/dL Albumin (3.4-5.0) g/dL Lipase (16-77) U/L Procalcitonin < 0.1 ng/mL TSH (0.36-3.74) uIU/mL Urine Color Yellow (Yellow) Urine Clarity Clear (Clear) Urine pH 5.5 (5-8) Ur Specific [place] 1.010 (1.005-1.025) Urine Protein Negative (Neg-Trace) mg/dL Urine Ketones 40 H (Negative) mg/dL Urine Blood Trace-intact H (Negative) Urine Nitrite Negative (Negative) Urine Bilirubin Negative (Negative) Urine Urobilinogen 0.2 (Up to 0.2) mg/dL Ur Leukocyte Esterase Negative (Negative) Urine RBC 0-2 (0-2) HPF Urine WBC 0-2 (0-5) HPF Ur Epithelial Cells Rare (Negative) HPF Urine Crystals Negative (Negative) HPF Urine Bacteria Negative (Negative) HPF Urine Casts Negative (Negative) LPF Urine Mucus Negative (Negative) Ur Culture Indicated? No Urine Glucose Negative (Negative) mg/dL Ethyl Alcohol (<10) mg/dL Add-On Test Request 06/01/24 06/01/24 Range/Units 13:37 13:35 WBC 21.79 H (4.4-10.8) 10^3/uL RBC 5.02 (4.36-5.78) 10^6/uL Hgb 16.0 (13.5-17.5) g/dL Hct 46.6 (40.0-50.0) % MCV 93 (80-95) fL MCH 31.9 (27.0-33.0) pg MCHC 34.3 (32.0-36.0) % RDW 14.2 H (11.8-14.1) % Plt Count 209 (130-400) 10^3/uL MPV 9.2 (8.0-11.0) fL Immature Gran % 0.3 % Neutrophils % 88.6 % Lymphocytes % 6.3 % Monocytes % 4.1 % Eosinophils % 0.1 % Basophils % 0.6 % Nucleated RBC % 0.0 (0.0-0.3) % Absolute Neutrophils 19.31 H (1.2-6.7) 10^3/uL Absolute Lymphocytes 1.37 (1.2-3.4) 10^3/uL Absolute Monocytes 0.89 H (0.1-0.8) 10^3/uL Absolute Eosinophils 0.02 (0.0-0.7) 10^3/uL Absolute Basophils 0.13 (0.0-0.2) 10^3/uL ESR (0-20) mm/hr PT 9.7 (9.1-11.1) sec INR 1.0 (0.9-1.1) APTT 28.2 (23.6-32.8) sec Sodium 137 (136-145) mmol/L Potassium 3.9 (3.5-5.1) mmol/L Chloride 97 L (98-107) mmol/L Carbon Dioxide 26.4 (21.0-32.0) mmol/L Anion Gap 13.6 H (3-11) mmol/L BUN 6 L (7-18) mg/dL Creatinine 0.8 (0.70-1.30) mg/dL Est GFR (CKD-EPI 2020) 103.87 (mL/min/1.73m2) Glucose 85 (74-106) mg/dL Calcium 8.7 (8.5-10.1) mg/dL Total Bilirubin 0.50 (0.2-1.0) mg/dL AST 36 (15-37) U/L ALT 46 (16-63) U/L Alkaline Phosphatase 111 (46-116) U/L Troponin I 123 H* (< or =60) ng/L C-Reactive Protein (<or=0.5) mg/dL NT-Pro-B Natriuret Pep Cancelled 12 (<300) pg/mL Total Protein 8.4 H (6.4-8.2) g/dL Albumin 4.5 (3.4-5.0) g/dL Lipase Cancelled 40 (16-77) U/L Procalcitonin ng/mL TSH Cancelled 1.25 (0.36-3.74) uIU/mL Urine Color (Yellow) Urine Clarity (Clear) Urine pH (5-8) Ur Specific [place] (1.005-1.025) Urine Protein (Neg-Trace) mg/dL Urine Ketones (Negative) mg/dL Urine Blood (Negative) Urine Nitrite (Negative) Urine Bilirubin (Negative) Urine Urobilinogen (Up to 0.2) mg/dL Ur Leukocyte Esterase (Negative) Urine RBC (0-2) HPF Urine WBC (0-5) HPF Ur Epithelial Cells (Negative) HPF Urine Crystals (Negative) HPF Urine Bacteria (Negative) HPF Urine Casts (Negative) LPF Urine Mucus (Negative) Ur Culture Indicated? Urine Glucose (Negative) mg/dL Ethyl Alcohol 237.9 H (<10) mg/dL Add-On Test Request 06/01/24 16:03 Blood Culture - Pending Blood 06/01/24 15:49 Blood Culture - Pending Blood Intake and Output - 24 Hour Total 06/01/24 12:35 thru 06/01/24 17:00 Intake Total 1000 Balance 1000 Weight 77.111 kg Intake: IV 1000 Falls Risk Assessment History of Falls No History 06/01/24 15:24 Contributing Factors No Factors 06/01/24 15:24 Ambulatory Aids Independent 06/01/24 15:24 Tubes/Lines None 06/01/24 15:24 Gait Evaluation No gait disturbance 06/01/24 15:24 Cognition No cognitive impairment 06/01/24 15:24 Fall Total Score 0 06/01/24 15:24 Level of Risk Standard/Low Risk 06/01/24 15:24 Problems (Last Reviewed 06/01/24 @ 15:37 by Som Mas DO) Non-ST elevation SC (NSTEMI) (Acute) v v v v v v v v v Sending and/or Receiving Nurses: Please use comment section below to note any information pertinent to the patient hand-off not included above. Information / Comments: pleuritic chest pain and shortness of breath, worse with inspiration. Hx of PE, had not been taking Eliquis, took at onset of pain. WBC elevated, blood culture sent. Chest pain returned on 0115-EKG and Toradol. 325mg aspirin given and 1L LR. Plan: troponins, echo, telemetry. ETOH 237. alert/oriented and ambulatory. #18 RAC. / Report received from: Report taken at 0230 06/02/24 from Mervat Garcia
--- NOTE | 2024-06-02 02:59 | POCUS_ITS ---
Pocus Exam Limited Cardiac Exam DATE OF EXAM: 06/02/24 TIME OF EXAM: 02:59 PROVIDER THAT PERFORMED THE STUDY: Roger Hyman REASON FOR EXAM: Chest pain VISUALIZED STRUCTURES: four chambers, LVOT, aortic valve, mitral valve, Int erventricular septum and IVC VIEW OBTAINED: Apical 4-Chamber, Parasternal long-axis, Parasternal short-axis and Subxiphoid PERTINENT FINDINGS/IMPRESSION: IVC inspiratory collapsability; No LV dysfunction, No pericardial effusion, No plethoric IVC, No RV dilation and No RV dysfunction Exam complete
[2024-06-02] MEDS: Acetaminophen 325 MG TAB PO ×2 (06:22→20:03)
--- NOTE | 2024-06-02 07:00 | RT.EKG_ITS ---
APPROVED REPORT Exam: Resting ECG Reason for Exam: elevated troponin Patient Location: I HR:67 bpm ECG Measurements Heart Rate 67 AXIS SD 123 P 75 QRSd 101 QRS 77 QT 430 T 68 QTc 454 Conclusion Sinus rhythm...normal P axis, V-rate 50- 99 Borderline low voltage, extremity leads...all extremity leads <0.6mV
[2024-06-02 07:02] LABS: Abs Immature Grans 0.01 10^3/uL (0.0-0.06); Absolute Basophil Count 0.08 10^3/uL (0.0-0.2); Absolute Eosinophil Count 0.09 10^3/uL (0.0-0.7); Absolute Lymphocyte Count 1.42 10^3/uL (1.2-3.4); Absolute Monocyte Count 0.74 10^3/uL (0.1-0.8); Absolute Neutrophil Count 4.39 10^3/uL (1.2-6.7); Basophils % 1.2 %; Eosinophils % 1.3 %; HCT 40.2 % (40.0-50.0); Immature Grans % 0.1 %; Lymphocytes % 21.1 %; MCHC 34.8 % (32.0-36.0); MCV 92 fL (80-95); MPV 9.1 fL (8.0-11.0); Neutrophils % 65.3 %; Platelet Count 160 10^3/uL (130-400); RBC 4.38 10^6/uL (4.36-5.78); RDW 13.7 % (11.8-14.1); RDW-SD 46.6 fL; WBC 6.73 10^3/uL (4.4-10.8)
[2024-06-02 07:25] LABS: Calculated LDL 143 mg/dL (<100); Cholesterol 242 mg/dL (<200); HDL Cholesterol 79 mg/dL (40-60); Triglyceride 101 mg/dL (<150)
[2024-06-02 07:27] LABS: Hemoglobin A1C 5.2 % (<5.7)
[2024-06-02 07:28] LABS: ALT 35 U/L (16-63); AST 24 U/L (15-37); Albumin 3.4 g/dL (3.4-5.0); Alkaline Phosphatase 84 U/L (46-116); Anion Gap 13.5 mmol/L (3-11); BUN 7 mg/dL (7-18); Bilirubin, Total 1.52 mg/dL (0.2-1.0); CO2 26.5 mmol/L (21.0-32.0); CREATININE 0.7 mg/dL (0.70-1.30); Calcium 8.8 mg/dL (8.5-10.1); Chloride 98 mmol/L (98-107); Estimated GFR 108.14 (mL/min/1.73m2); Glucose 80 mg/dL (74-106); Potassium 4.1 mmol/L (3.5-5.1); Sodium 138 mmol/L (136-145); Total Protein 7.1 g/dL (6.4-8.2)
[2024-06-02] MEDS: Pantoprazole 40 MG TABCR PO (07:31)
[2024-06-02 07:37] LABS: Troponin I 101 ng/L (< or =60)
[2024-06-02] MEDS: Nicotine 14 MG/24 HR PATCH TD (07:50)
[2024-06-02] MEDS: Aspirin E.C. 81 MG TABEC PO (07:50)
[2024-06-02] MEDS: Colchicine 0.6 MG TAB PO ×2 (07:50→20:24)
[2024-06-02] MEDS: Ibuprofen 800 MG TAB PO (07:50)
[2024-06-02] MEDS: Normal Saline Flush 10 ML SYR IVP ×2 (07:51→20:24)
[2024-06-02 11:44] LABS: Troponin I 103 ng/L (< or =60)
[2024-06-02] MEDS: Aspirin 325 MG TAB 650 MG PO ×2 (13:53→20:03)
--- NOTE | 2024-06-02 17:51 | PGE_ITS ---
Date of Service Date of service: 06/02/24 Time of Service: 17:51 Assessment and Plan Assessment and plan (1) Chest pain, pleuritic: Status: Acute Assessment and plan: I agree with Dr. Hyman that this is most consistent with pericarditis/remy- epicarditis given the pleuritic nature of the pain, the minimal and non-dynamic troponin leak and a bedside echo which did not reveal any RWMA and overall normal LV and RV function. I will treat w/ colchicine and but change from ibuprofen to aspirin w/ GI protection w/ pantoprazole. He did breifly have a fever this morning, which has resolved without antibiotics. Given this, and tick exposure, I ordered tick and lyme panel and COVID screen. (2) Elevated troponin I level: Status: Acute Assessment and plan: Troponin trend flat. As above, this is not c/w ACS. I agree with formal echo when available, and MPI non-urgently to risk stratify. (3) Nicotine dependence, cigarettes, uncomplicated: Status: Acute Assessment and plan: He has a patch. He is ambivalent about quitting forever. Discussed. (4) Hyperlipemia: Status: Acute Assessment and plan: He was started on high intensity statin to lower his cardiac risk based on lipids and smoking. Subjective Subjective Patient reports: tolerating a regular diet; denies nausea, vomiting, shortness of breath or fever Interval history since last seen: He still has mild chest pain, really feels it when he breaths deep. Better than when he came in. Had some nausea after taking aspirin, but not now. not lightheaded. Exam Narrative Exam Narrative: alert and orient x 3, no acute distress, able to talk in complete sentences. Lungs with diffusely diminished breath sounds, but no rales or wheeze, normal effort Chest wall nontender to palpation Heart regular rate and rhythm no murmur, no rub, no gallop normal S1 and S2 Abdomen soft and nontender no organomegaly normal bowel sounds Extremities without peripheral cyanosis or edema Objective Last Vital Signs Temp 37.1 C 06/02/24 15:08 Pulse 81 06/02/24 15:08 Resp 16 06/02/24 15:08 BP 131/80 06/02/24 15:08 Pulse Ox 99 06/02/24 15:08 Laboratory Results - last 24 hr 06/01/24 06/01/24 06/02/24 13:38 23:35 01:31 WBC RBC Hgb Hct MCV MCH MCHC RDW Plt Count MPV Immature Gran % Neutrophils % Lymphocytes % Monocytes % Eosinophils % Basophils % Nucleated RBC % Absolute Neutrophils Absolute Lymphocytes Absolute Monocytes Absolute Eosinophils Absolute Basophils ESR 14 Sodium Potassium Chloride Carbon Dioxide Anion Gap BUN Creatinine Est GFR (CKD-EPI 2020) Glucose Hemoglobin A1c Calcium Total Bilirubin AST ALT Alkaline Phosphatase Troponin I 92 H* C-Reactive Protein 5.47 H NT-Pro-B Natriuret Pep 60 Total Protein Albumin Triglycerides Total Cholesterol LDL Cholesterol, Calc HDL Cholesterol Add-On Test Request DONE 06/02/24 06/02/24 06:36 11:15 WBC 6.73 RBC 4.38 Hgb 14.0 D Hct 40.2 MCV 92 MCH 32.0 MCHC 34.8 RDW 13.7 Plt Count 160 MPV 9.1 Immature Gran % 0.1 Neutrophils % 65.3 Lymphocytes % 21.1 Monocytes % 11.0 Eosinophils % 1.3 Basophils % 1.2 Nucleated RBC % 0.0 Absolute Neutrophils 4.39 Absolute Lymphocytes 1.42 Absolute Monocytes 0.74 Absolute Eosinophils 0.09 Absolute Basophils 0.08 ESR Sodium 138 Potassium 4.1 Chloride 98 Carbon Dioxide 26.5 Anion Gap 13.5 H BUN 7 Creatinine 0.7 Est GFR (CKD-EPI 2020) 108.14 Glucose 80 Hemoglobin A1c 5.2 Calcium 8.8 Total Bilirubin 1.52 H AST 24 ALT 35 Alkaline Phosphatase 84 Troponin I 101 H* 103 H* C-Reactive Protein NT-Pro-B Natriuret Pep Total Protein 7.1 Albumin 3.4 Triglycerides 101 Total Cholesterol 242 H LDL Cholesterol, Calc 143 H HDL Cholesterol 79 Add-On Test Request Time Spent with Patient Time Spent with Patient: 35-49 minutes Time was spent: preparing to see the patient(eg.review tests), obtaining and/or reviewing separately otained hiistory, ordering medications,tests, procedures, referring, communicating with other health care management specialist, indepentently interpreting results and counseling the patient
[2024-06-02 18:13] LABS: Source Nasal/Nares
[2024-06-02 18:56] LABS: COVID-19 PCR Negative (Negative)
[2024-06-02] MEDS: Atorvastatin 40 MG TAB 80 MG PO (20:03)
[2024-06-03 05:02] VITALS: BP 118/87; PULSE 61; RESP 16; TEMP 36; O2SAT 97
[2024-06-03] MEDS: Pantoprazole 40 MG TABCR PO (07:08)
[2024-06-03] MEDS: Colchicine 0.6 MG TAB PO (07:42)
[2024-06-03] MEDS: Aspirin 325 MG TAB 650 MG PO ×2 (07:43→13:32)
[2024-06-03] MEDS: Nicotine 14 MG/24 HR PATCH TD (07:43)
[2024-06-03] MEDS: Normal Saline Flush 10 ML SYR IVP (07:44)
--- NOTE | 2024-06-03 08:56 | INITIAL_ITS ---
Date of service: 06/03/24 Time of Service: 08:56 Care Management Initial Assmt Initial Assessment Reason for Hospitalization: chest pain Functional Status/Living Situation Patient Presentation: Virgil was sitting up on the side of his bed when CM met with him. He was pleasant in interaction and agreeable to conversation. Virgil was admitted with pleuritic type of chest pain. He stated that he is feeling much better and no longer has any pain. He is hopeful he can be discharged later today. he denied the need for any services. Town of Residence: [place], [place] Resides with: Alone Significant Other/Family: Local Natural Supports: daughter Monet and friend Klever Employment Status: Unemployed Instrumental Activities of Daily Living (ADLs): Independent Medications Medication Management: No Issues/Barriers identified Advance Directives Advance Directives: Do you have an Advance Directive: N 09/20/13 10:54 AD On File at [facility]: N 03/09/13 16:40 Date Asked 06/02/24 06/02/24 08:02 AD Date Reviewed COLST On File at [facility] COLST Date Scanned Code Status Resuscitation Status Full Code Portal Pt does not currently have a portal and education provided: No Portal Education: Other (not from area) Insurance Coverage/Financial Issues Insurance: Medicaid ACO Member: Yes Care Team Visit Care Team Role Provider Type Jeremy Hinton NP Primary Care Provider NURSE PRACTITIONER Sanjuana Aguilera MD Emergency Provider [facility] STAFF PHYSICIAN Roger Hyman MD Admit Provider [facility] STAFF PHYSICIAN Attending Provider Discharge Potential Discharge Needs: PCP F/U Appt Anticipated Barriers to Discharge: None Identified Patient/Family Education Needs: Review discharge instructions, discuss Ask Me Three Transportation: Private vehicle Plan: Anticipate Virgil will be discharged home with no new services. He will follow up with his community providers and plan of care and transport with family. CM will follow and continue to support discharge needs. PFSH All Active Problems Acute myopericarditis (Acute) Hyperlipemia (Acute) Elevated troponin I level (Acute) Chest pain, pleuritic (Acute) Memory deficit (Acute) Mood disorder (Acute) Low back pain (Acute) Nicotine dependence, cigarettes, uncomplicated (Acute) Tubular adenoma of colon (Acute) Sessile colonic polyp (Acute) S/P colonoscopy (Acute) Colonic diverticular abscess (Acute) Abscess of rectum (Acute) History of back surgery (Acute) Medical History Pleural effusion Acute deep vein thrombosis (DVT) of left lower extremity Pulmonary emboli Family History Mother Cancer Father Cancer Social History Smoking/Tobacco Use Status: Current every day Tobacco Type: cigarettes Smoking packs per day: 1 Smoking cigarettes per day: 20.0 Quit status: not considering quitting Second Hand Exposure: Yes Smoking risk assessment performed?: Yes Alcohol Intake: current Alcohol Intake frequency: a few times a week Alcohol type: beer Drug use: Occasionally Substance use type: marijuana Housing: other Current gender identity: male Do you feel safe at home: Yes Do you feel safe in your relationship?: Yes SDOH(Care Management) Screening Will the Patient Participate in the Screening?: Yes Do you worry about having a steady place to live?: no Problems where you live: pests such as bugs, ants or mice, lack of heat and oven or stove not working In the past 12 months, have you had to go without electric, gas, oil or water in your home?: yes Have you or anyone in your house had to go without enough food to eat?: no Has lack of transportation kept you from medical appointments or from doing things needed for daily living?: no Has anyone in your support network made you feel unsafe for any reason?: no Social Determinants of Health Comments(SDOH Details): 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 Patient expresses he ge ts by and has what he needs. Daughter and friend drives him to Dr gonsalves and grocery shopping weekly Health Related Social Needs Health related social needs: inadequate housing(Z59.1) and material hardship(utilities)(Z59.87)
[2024-06-03 09:25] VITALS: BP 133/80; PULSE 78; RESP 16; TEMP 37.1; O2SAT 96
--- NOTE | 2024-06-03 10:15 | RT.EKG_ITS ---
APPROVED REPORT Exam: Resting ECG Reason for Exam: myopericarditis, follow up Patient Location: I HR:63 bpm ECG Measurements Heart Rate 63 AXIS MA 119 P 72 QRSd 102 QRS 79 QT 438 T 65 QTc 449 Conclusion Sinus rhythm...normal P axis, V-rate 50- 99 Borderline short MA interval...MA int <120mS Otherwise normal ECG
--- NOTE | 2024-06-03 10:40 | CHAPLAIN ---
Virgil was resting in bed when I visited. He was pleasant and easily engaged in conversation. He told me he moved up here several years ago to be closer to his daughter. He has a grandson who turns one soon. Virgil has been able to keep in touch with his daughter by phone but he is in need of charging his phone. He said his nurse is looking for a wireless manager for him. I explained my role and offered support.
--- NOTE | 2024-06-03 11:17 | W.PM.PROGNOT ---
Date of Service Date of service: 06/03/24 Time of Service: 11:17 Assessment and Plan Assessment and plan (1) Acute myopericarditis: Status: Acute Assessment and plan: I agree with Dr. Hyman that this is most consistent with myopericarditis/remy-epicarditis given the pleuritic nature of the pain, the minimal and non-dynamic troponin leak and a bedside echo which did not reveal any RWMA and overall normal LV and RV function. Continue treating w/ colchicine and anti-inflammatory doses of aspirin w/ GI protection w/ pantoprazole. He did breifly have a fever on the morning of admission, which has resolved without antibiotics. COVID negative. Given tick exposure, I ordered tick and lyme panel. 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 Formal echo done, read pending. Cardiac MR would be ideal to confirm, but this is not available here. Plan f/u with cardiology. (2) Chest pain, pleuritic: Status: Acute Assessment and plan: as above, imporving with anti-inflammatory treatment. Given risks, I think stress test would be prudent, but not emergent. Defer to outpatient cardiology follow up. (3) Nicotine dependence, cigarettes, uncomplicated: Status: Acute Assessment and plan: He has a patch. He is ambivalent about quitting forever. Continue to discuss. (4) Hyperlipemia: Status: Acute Assessment and plan: He was started 06/02 on high intensity statin to lower his cardiac risk based on lipids and smoking, tolerating. Subjective Subjective Patient reports: tolerating a regular diet; denies voiding w/o difficulty, nausea, vomiting, shortness of breath or fever Interval history since last seen: Feeling better. Still some tightness across mid chest between nipples, but improved. No longer pain with deep breath. No increase pain with activity walking around room. No longer getting nausea. Exam Narrative Exam Narrative: alert and orient x 3, no acute distress, able to talk in complete sentences. Lungs with diffusely diminished breath sounds, some slight wheeze posteriorly, but no rales, normal effort Chest wall nontender to palpation Heart regular rate and rhythm no murmur, no rub, no gallop normal S1 and S2 Abdomen soft and nontender, normal bowel sounds Extremities without peripheral cyanosis or edema Objective Last Vital Signs Temp 37.1 C 06/03/24 09:25 Pulse 78 06/03/24 09:25 Resp 16 06/03/24 09:25 BP 133/80 06/03/24 09:25 Pulse Ox 96 06/03/24 09:25 Laboratory Results - last 24 hr 06/02/24 06/02/24 11:15 18:10 Troponin I 103 H* COVID-19 Source Nasal/Nares SARS-CoV-2 (PCR) Negative Objective Narrative Objective Narrative: EKG: No change, no ischemia Time Spent with Patient Time Spent with Patient: 35-49 minutes Time was spent: preparing to see the patient(eg.review tests), obtaining and/or reviewing separately otained hiistory, ordering medications,tests, procedures, referring, communicating with other health family day care provider, indepentently interpreting results and counseling the patient
[2024-06-03 11:27] VITALS: BP 130/91; PULSE 73; RESP 16; TEMP 36.9; O2SAT 98
[2024-06-03 12:59] LABS: Troponin I 101 ng/L (< or =60)
--- NOTE | 2024-06-03 15:19 | PHA.REVIEW2 ---
Pharmacy Admission Review Admission Clinical Review Admission Pharmacy Review: Acute myopericarditis (Acute) Hyperlipemia (Acute) Elevated troponin I level (Acute) Chest pain, pleuritic (Acute) Nicotine dependence, cigarettes, uncomplicated (Acute) No Known Allergies Allergy (Unverified 06/01/24 12:45) Resuscitation Status Full Code Height 5 ft 8 in Weight 73.1 kg Comments Comments/Follow Ups: Watch BP, HR, labs and for med changes. Pharmacy Admission Review Renal Dosing Renal Dosing: BUN 7 mg/dL (7-18) 06/02/24 06:36 Creatinine 0.7 mg/dL (0.70-1.30) 06/02/24 06:36 Medications needing adjustments: Reviewed (Crcl ~121 mL/min current meds okay) Anticoagulation Anticoagulation: Hgb 14.0 g/dL (13.5-17.5) D 06/02/24 06:36 Hct 40.2 % (40.0-50.0) 06/02/24 06:36 Plt Count 160 10^3/uL (130-400) 06/02/24 06:36 INR 1.0 (0.9-1.1) 06/01/24 13:35 Creatinine 0.7 mg/dL (0.70-1.30) 06/02/24 06:36 DVT Prophylaxis: Intervened (talked to provider about prophylaxis) Medications: Enoxaparin Opiate Usage Evaluate Pain Scale/Pains Meds: N/A Relevant Labs Relevant Labs: ESR 14 mm/hr (0-20) 06/01/24 13:38 Sodium 138 mmol/L (136-145) 06/02/24 06:36 Potassium 4.1 mmol/L (3.5-5.1) 06/02/24 06:36 Chloride 98 mmol/L (98-107) 06/02/24 06:36 C-Reactive Protein 5.47 mg/dL (<or=0.5) H 06/01/24 23:35 Electrolytes, C-Reactive P, ESR: Reviewed DM Control DM Control: N/A Cardiac Review Cardiac Review: Troponin I 101 ng/L (< or =60) H* 06/03/24 12:25 NT-Pro-B Natriuret Pep 60 pg/mL (<300) 06/01/24 23:35 BP, HR, EF%: Reviewed (BP and HR have been normal to high most of admission so far.) QTc Review QTc: Reviewed (QTc 470 on admission) IV to PO Switch IV Medications: Reviewed Home Meds Home Med List reviewed: Reviewed (both home meds are currently ordered) Current Meds Current Medication Order Review: Reviewed Comments Comments/Follow Ups: Watch BP, HR, labs and for med changes.
[2024-06-03 15:32] VITALS: BP 119/87; PULSE 86; RESP 15; TEMP 37; O2SAT 97
[2024-06-03] MEDS: Enoxaparin 40 MG/0.4 ML SYR SC (16:49)
--- NOTE | 2024-06-03 17:45 | W.PM.DS.N ---
Date of service: 06/03/24 Time of Service: 17:45 DS: Diagnosis Discharge Diagnosis (1) Acute myopericarditis: Status: Acute (2) Chest pain, pleuritic: Status: Acute (3) Nicotine dependence, cigarettes, uncomplicated: Status: Acute (4) Hyperlipemia: Status: Acute Discharge Plan Disposition Patient Disposition: Home Condition: Good Discharge Details Reason For Visit: Pleuritic Chest Pain, Elevated Troponin Admit Date/Time: 06/02/24 01:24 Admit Provider: Roger Hyman Attending Provider: Roger Hyman Primary Care Provider: Jeremy Hinton Hospital Course Hospital Course: 58 yo M smoker with history of unprovoked PE in 2022, no longer on anticoagulation, who presented with acute onset pleuritic chest pain and shortness of breath. CTA was negative for PE or dissection. There was no pleural or pericardial effusion or pneumonia. Dr. Hyman showed no signs of increased pulmonary pressure, normal RV and LV function. Serial EKGs did not look ischemic or have classic pericarditis findings, but troponins were elevated. Troponin was 123 on presentation, the 106, 92, 101, 103, 101 on day of discharge. On presentation he had a temperature of 38.1, a CRP of 5.47, and a WBC of 19. Case was reviewed with [facility] cardiology in the ED who did not feel this was type 1 ACS. Given pleuritic nature of pain and inflammatory markers, we came to a working diagnosis diagnosis of myopericarditis. His pain improved significantly after a dose of ketoralac, which supported this diagnosis. He was started on ibuprofen and colchicine along with 81mg aspirin, which was changed to anti-inflammatory doses of aspirin and cholchicine. His LDL was 143 and TC was 242. Atorvastatin 80mg was started both to improve his chcf risk, and to treat any possible coronary disease. His WBC normalized by the second day of admission, and he did not have another fever. COVID was negative. He had some recent tick exposure, so tick/lyme panel was sent and was pending on discharge. He was monitored on telemetry with no events. His pain improved greatly, shortness of breath resolved on ASA and cholcicine. PPI was given for GI prophylaxis. The case was reviewed again with [facility] cardiology (this time Dr. Agarwal) who did not recommend any immediate changes, but recommended close follow up with Dr. Pepe and PCP. He was given a nicotene patch while inpatient and it was prescribed on discharge. Smoking cessation was strongly encouraged. Blood alcohol was 238 on admission. It was recommended he abstain from alcohol until this work up is complete. Home Meds and New Rx's Prescriptions: New aspirin 325 mg Tablet 650 mg PO TID Qty: 90 2RF colchicine [Colcrys] 0.6 mg Tablet 0.6 mg PO BID Qty: 30 2RF atorvastatin 80 mg tablet 80 mg PO QHS Qty: 90 0RF pantoprazole 40 mg Tablet,Delayed Release (Dr/Ec) 40 mg PO DAILY@0730 Qty: 30 2RF nicotine [Nicoderm CQ] 21 mg/24 hr patch 24 hour 1 patch transdermal Q24H Qty: 28 3RF Continued albuterol sulfate 90 mcg/actuation HFA aerosol inhaler 2 puff inhalation Q6H PRN (Reason: shortness of breath or wheezing) Qty: 8.5 12RF Discontinued acetaminophen [Tylenol Extra Strength] 500 mg tablet See Rx Instructions PO DIRECTED PRN Patient Comments: states can't afford Rx Instructions: orally as directed PRN; Discharge Instructions Instructions: Chest Pain, Adult ED Additional Instructions: Avoid smoking and alcohol, at least until you are able to complete your follow up for your heart Come back to the ED if the pain is getting worse again call [facility] cardiology ThursdayJune 06 to schedule cardiology follow up Referrals: Jeremy Hinton NP [Primary Care Provider] - Afshin,Luz Marina Ramsey MD [ [facility] STAFF PHYSICIAN] - 06/06/24 (58 yo smoker with history of PE, admitted with pleuritic chest pains and mildly positive non-dynamic troponins. No PE on CTA. Improved with anti-inflammatories. Presumed myopercarditis, but does he need cardiac MRI to prove this, or additional testing? Should he have ischemic testing, and if so what timing do you recommend? Do you think he should complete the full 3 months of anti-inflammatories?) Activity:: Activity as Tolerated Equipment/Supplies:: No Equipment Needed Diet:: As Tolerated Discharge Orders Discharge Orders: Discharge Order (Routine); Ordered 06/03/24 Ordered By: Joshua Moreira DS: Summary Time Spent with Patient providing and/or coordinating discharge services: Greater than 30 minutes Status at Discharge Functional status at discharge: independent ambulation Overall status at discharge: patient is back to baseline Mental Status: mental status grossly normal Speech and Movement: speech and movement normal Mood: congruent mood Affect: normal affect Quality:SDOH Health Related Social Needs: Health related social needs inadequate housing, material hardship Health related social needs details Transportation, housing Exam Narrative Exam Narrative: alert and orient x 3, no acute distress, comfortable walking around room, able to talk in complete sentences. Lungs CTAB except some very slight wheeze posteriorly, but no rales, normal effort Chest wall non-tender to palpation Heart regular rate and rhythm no murmur, no rub, no gallop normal S1 and S2 Abdomen soft and nontender, normal bowel sounds Extremities without peripheral cyanosis or edema Psych Mental Status: mental status grossly normal Speech and Movement: speech and movement normal Mood: congruent mood Affect: normal affect DS: Data Vitals/I&O Vitals and I&O: Vital Signs Temperature 37.0 C 06/03/24 15:32 Temperature Source Temporal Artery Scan 06/03/24 15:32 Pulse 86 06/03/24 15:32 Pulse Rhythm Regular 06/03/24 13:16 Pulse 97 H 06/01/24 21:40 Respiratory Rate 15 06/03/24 15:32 Respiratory Effort Normal, Non-Labored 06/03/24 13:16 Respiratory Depth Normal 06/03/24 13:16 Respiratory Pattern Normal 06/03/24 13:16 Blood Pressure 119/87 06/03/24 15:32 Blood Pressure Position Sitting 06/01/24 12:40 Pulse Oximetry 97 06/03/24 15:32 Oxygen Delivery Method Room Air 06/03/24 15:32 Oxygen Flow Rate 0 06/03/24 15:32 Pain Level 0 06/03/24 15:32 Comment 2/10 pressure similar to yesterday. no changes in sensation 06/03/24 05:02 Intake & Output 06/02/24 06/03/24 06/03/24 23:59 11:59 23:59 Intake Total 1300 / 2660 999 / 1999 999 / 1999 Output Total 325 / 325 Balance 1300 / 2660 675 / 1675 1000 / 1675 Intake: IV 999 Oral 300 / 660 Output: Urine 325 / 325 Other: Urine Color Yellow Yellow Urine Appearance Clear Clear Clear Comment pt urinated at the restroom urinal Voiding Methods Toilet Toilet Data Completed and Pending Labs on day of discharge: Labs from last 24 hours 06/03/24 06/02/24 12:25 18:10 Troponin I 101 H* COVID-19 Source Nasal/Nares SARS-CoV-2 (PCR) Negative Preliminary micro results at discharge 06/01/24 16:03 Blood Culture - Preliminary Blood NO GROWTH 24 HOURS 06/01/24 15:49 Blood Culture - Preliminary Blood NO GROWTH 24 HOURS PFSH All Active Problems Acute myopericarditis (Acute) Hyperlipemia (Acute) Elevated troponin I level (Acute) Chest pain, pleuritic (Acute) Memory deficit (Acute) Mood disorder (Acute) Low back pain (Acute) Nicotine dependence, cigarettes, uncomplicated (Acute) Tubular adenoma of colon (Acute) Sessile colonic polyp (Acute) S/P colonoscopy (Acute) Colonic diverticular abscess (Acute) Abscess of rectum (Acute) History of back surgery (Acute) Medical History Pleural effusion Acute deep vein thrombosis (DVT) of left lower extremity Pulmonary emboli Family History Mother Cancer Father Cancer Social History Smoking/Tobacco Use Status: Current every day Tobacco Type: cigarettes Smoking packs per day: 1 Smoking cigarettes per day: 20.0 Quit status: not considering quitting Second Hand Exposure: Yes Smoking risk assessment performed?: Yes Alcohol Intake: current Alcohol Intake frequency: a few times a week Alcohol type: beer Drug use: Occasionally Substance use type: marijuana Housing: other Current gender identity: male Do you feel safe at home: Yes Do you feel safe in your relationship?: Yes Time Spent with Patient Time Spent with Patient: 45-69 minutes Time was spent: preparing to see the patient(eg.review tests), obtaining and/or reviewing separately otained hiistory, ordering medications,tests, procedures, referring, communicating with other health care partner, indepentently interpreting results, counseling the patient and care coordination
[2024-06-06 13:21] LABS: Lyme Ab w Rflx to Lyme Confirm Negative (Negative)
[2024-06-06 23:05] LABS: Anaplasma phagocytophilum Negative (Negative); B. miyamotoi PCR Negative (Negative); Babesia divergens/MO-1 Negative (Negative); Babesia duncani Negative (Negative); Babesia microti Negative (Negative); Ehrlichia chaffeensis Negative (Negative); Ehrlichia ewingii/canis Negative (Negative); Ehrlichia muris eauclairensis Negative (Negative)
== END 2024-06-03 18:00 | disposition home or self-care (01) ==
LOC: ER 06-02 01:39 → MS 06-02 02:53
PROVIDERS: Emergency Medicine; Family Medicine; Student in an Organized Health Care Education/Training Program; Admitting Provider Internal Medicine; Emergency Provider Student in an Organized Health Care Education/Training Program; PCP Nurse Practitioner Family; Visit Provider Internal Medicine
DX: I30.9 Acute pericarditis, unspecified (principal); R07.81 Pleurodynia; R79.89 Other specified abnormal findings of blood chemistry; F17.210 Nicotine dependence, cigarettes, uncomplicated; E78.5 Hyperlipidemia, unspecified; Z86.711 Personal history of pulmonary embolism; Z86.718 Personal history of other venous thrombosis and embolism; I74.8 Embolism and thrombosis of other arteries; R41.3 Other amnesia; M54.50 Low back pain, unspecified; F12.90 Cannabis use, unspecified, uncomplicated
CPT/HCPCS: 00123; 36415; 71275; 80053; 80061; 83690; 84145; 85652; 87040; 87635; 87798; 93005; 93308; 96361; 96372; 96374; 99285; J1650; 80320; 81003; 81015; 83036; 83880; 84443; 84484; 85025; 85610; 85730; 86140; 86618; 93010; 93306; 99222; 99239; J1885; J3490

== ENCOUNTER → 2024-06-13 02:02 | Outpatient (CLI) | payer MEDICAID, SELFPAY ==
--- NOTE | 2024-06-13 07:45 | DI.MRI_ITS ---
Exam(s) MR BRAIN WO EXAM: MR BRAIN WO CLINICAL HISTORY: MEMORY deficit,R41.3 TECHNIQUE: Multiplanar multisequence MRI of the brain was performed. COMPARISON: CT CT HEAD WO from 06/27/[address] FACIAL WO from 12/13/2023 FINDINGS: VENTRICLES AND EXTRA AXIAL SPACES: Normal in size and morphology for the patient's age. MIDLINE SHIFT: None. CEREBRAL PARENCHYMA: No focus of restricted diffusion to suggest acute infarct. No space-occupying le tony identified. No abnormal white matter signal lesions. HEMORRHAGE: None. BRAINSTEM/CEREBELLUM: Normal. VISUALIZED PARANASAL SINUSES/MASTOIDS:Clear. Vasculature: Normal flow void. PITUITARY GLAND: Unremarkable. ORBITS: Unremarkable. IMPRESSION: Unremarkable MRI of the brain. DATA REPOSITORY:
== END ==
PROVIDERS: PCP Nurse Practitioner Family; Visit Provider Nurse Practitioner Family
DX: R41.3 Other amnesia (principal)
CPT/HCPCS: 70551

== ENCOUNTER 2024-08-18 10:48 | Outpatient (CLI) | payer MEDICAID, SELFPAY ==
--- NOTE | 2024-08-18 10:45 | RT.EKG_ITS ---
APPROVED REPORT Exam: Resting ECG Reason for Exam: new patient. chest pain Patient Location: O HR:69 bpm ECG Measurements Heart Rate 69 AXIS WI 141 P 79 QRSd 97 QRS 84 QT 425 T 67 QTc 456 Conclusion Sinus rhythm...normal P axis, V-rate 50- 99 Poor R wave progression
== END 2024-08-18 10:49 | disposition home or self-care (01) ==
LOC: DI.CARD 10:49
PROVIDERS: PCP Nurse Practitioner Family; Visit Provider Internal Medicine Cardiovascular Disease
DX: I30.9 Acute pericarditis, unspecified (principal); R79.89 Other specified abnormal findings of blood chemistry; R07.9 Chest pain, unspecified
CPT/HCPCS: 93010

== ENCOUNTER 2024-08-18 13:44 | Outpatient (CLI) | payer MEDICAID, SELFPAY ==
[2024-08-18 14:24] LABS: Calculated LDL 61 mg/dL (<100); Cholesterol 144 mg/dL (<200); HDL Cholesterol 74 mg/dL (40-60); Triglyceride 49 mg/dL (<150)
[2024-08-18 15:20] LABS: Hemoglobin A1C 5.1 % (<5.7)
[2024-08-19 18:19] LABS: PSA, Screening 0.7 ng/mL (<=3.5)
== END 2024-08-18 13:45 | disposition home or self-care (01) ==
LOC: LBO 13:44
PROVIDERS: PCP Nurse Practitioner Family; Visit Provider Nurse Practitioner Family
DX: Z12.5 Encounter for screening for malignant neoplasm of prostate (principal); Z13.220 Encounter for screening for lipoid disorders; Z13.1 Encounter for screening for diabetes mellitus
CPT/HCPCS: 36415; 80061; 84153; 83036

== ENCOUNTER 2025-09-07 01:01 | Outpatient (CLI) | payer MEDICAID, SELFPAY ==
[2025-09-07 17:14] LABS: TSH (W/Ref FT4) 3.30 uIU/mL (0.36-3.74); Vitamin B12 490 pg/mL (193-986); Vitamin D 25 Total 32 ng/mL (30-100)
== END 2025-09-07 01:02 | disposition home or self-care (01) ==
LOC: LBO 01:01
PROVIDERS: PCP Nurse Practitioner Family; Visit Provider Nurse Practitioner Family
DX: E03.9 Hypothyroidism, unspecified (principal); R41.3 Other amnesia
CPT/HCPCS: 36415; 82306; 82607; 84443

== ENCOUNTER 2025-09-07 01:02 | Outpatient (CLI) | payer MEDICAID, SELFPAY ==
--- NOTE | 2025-09-07 07:30 | DI.RAD_ITS ---
Exam(s) XR LUMBAR SPINE COMPLETE EXAM: XR LUMBAR SPINE COMPLETE CLINICAL HISTORY: Worsening LOW BACK PAIN,M 54.50. TECHNIQUE: 2D digital imaging was performed. COMPARISON: CT CT ABDOMEN PELVIS W from 10/03/2020 FINDINGS: Five views No evidence of acute fracture nor listhesis nor pars interarticularis defects. Mild anterior osseous wedging of L1 is unchanged from CT scan of September 2020. Disc space narrowing at L1-2 level also unchanged as is some disc space narrowing and retrolisthesis of L2 upon L3. there is moderate-advanced disc space narrowing L5-S1 level which is also unchanged from 2020. L3-4 and L4-5 levels continue to exhibit normal disc height. There is no significant facet arthropathy with the exception of L5-S1 where there is mild facet arthropathy. No significant scoliosis. Sacroiliac joints appear unremarkable. IMPRESSION: Findings as above but with minimal if any significant change when compared to lumbar spine findings on abdominal CT scan performed 10/03/2020 DATA REPOSITORY: RADIATION DOSE DELIVERED:
--- NOTE | 2025-09-07 07:30 | DI.RAD_ITS ---
Exam(s) XR HIP RT COMPLETE AP PELVIS EXAM: XR HIP RT COMPLETE AP PELVIS CLINICAL HISTORY: Worsening RT HIP PAIN, M25.551. TECHNIQUE: 2D digital imaging was performed. COMPARISON: No exams were available for comparison FINDINGS: Two views No evidence of acute fracture of the pelvis and hips. No obvious degenerative changes. Additional frog-lateral view of the right hip reveals no significant joint space narrowing nor femoral head osteophytes. Sacroiliac joints appear unremarkable. No osseous lesions in the pelvis and hips. IMPRESSION: No acute osseous findings. DATA REPOSITORY: RADIATION DOSE DELIVERED:
== END 2025-09-07 01:22 ==
LOC: DI 01:02
PROVIDERS: PCP Nurse Practitioner Family; Visit Provider Nurse Practitioner Family
DX: M54.50 Low back pain, unspecified (principal); M25.551 Pain in right hip
CPT/HCPCS: 72110; 73502

== ENCOUNTER 2025-11-16 08:58 | Day surgery (SDC) | payer MEDICAID, SELFPAY ==
[2025-11-16 09:23] VITALS: BP 114/88; PULSE 85; RESP 12; TEMP 36.5; O2SAT 98
[2025-11-16] MEDS: Lactated Ringers 1,000 ML 80 ML IV (09:40)
[2025-11-16 10:55] VITALS: BMI 25.8
--- NOTE | 2025-11-16 10:55 | ANES.PREOP_ITS ---
General Info Date of Service Date Performed: 11/16/25 Height: 5 ft 9 in Weight: 79.4 kg Body Mass Index (BMI): 25.8 Surgical Procedure: Operation Date: 11/16/25 10:35 Proposed Procedure Side Surgeon p Colonoscopy/Gastroscopy Dulce Maria Gama MD Meds Allergies and Home Medications Allergies Allergy/AdvReac Type Severity Reaction Status Date / Time colchicine Allergy Diarrhea Verified 11/16/25 09:22 Home Medication ?Medication ?Instructions ?Recorded albuterol sulfate 90 mcg/actuation 2 puff inhalation Q 6H PRN 05/22/25 aerosol inhaler shortness of breath or wheez ing #8.5 grams bisacodyl 5 mg tablet,delayed 5 mg PO ONCE colonscopy bowel prep 11/08/25 release (Dulcolax (bisacodyl)) #4 tabs polyethylene glycol 3350 17 238 g PO ONCE colonoscopy prep 11/08/25 gram/dose oral powder #238 grams quetiapine 50 mg tablet,extended 100 mg (2 x 50 mg) PO QHS #60 tabs 11/09/25 release 24 hr Current Visit Medications: Current Medications Generic Name Dose Route Start Last Admin Trade Name Freq PRN Reason Stop Dose Admin Ringer's Solution 1,000 mls @ 80 mls/hr 11/16/25 06:00 11/16/25 09:40 IV 11/16/25 23:59 80 mls/hr INFUSION TEDDY Administration Sodium Biphosphate/Sodium Phosphate 133 ml 11/16/25 06:00 Na Phosphate Enema-Adult 133 Ml Btl IL 11/16/25 23:59 DIRECTED PRN Sodium Chloride 0 ml 11/16/25 06:00 Normal Saline Flush 10 Ml Syr IV 11/16/25 23:59 PRN PRN Sodium Chloride 0 ml 11/16/25 06:00 Normal Saline 10 Ml Vial IJ 11/16/25 23:59 DIRECTED PRN Sterile Water 0 ml 11/16/25 06:00 Water,Injection,Sterile 10 Ml Vial IJ 11/16/25 23:59 DIRECTED PRN PFSH Active Problems Active Problems: Problem Status Onset Code History of adenomatous polyp of colon Acute Z86.0101 Change in stool habits Acute R19.4 Melena Acute K92.1 EBONY (generalized anxiety disorder) Acute F41.1 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 Bipolar disorder, current episode mixed, unspecified Acute F31.60 Right hip pain Acute M25.551 Acute myopericarditis Acute I30.9 Hyperlipemia Acute E78.5 Elevated troponin I level Acute R79.89 Memory deficit Acute R41.3 Low back pain Acute M54.50 Nicotine dependence, cigarettes, uncomplicated Acute F17.210 Tubular adenoma of colon Acute D12.6 Sessile colonic polyp Acute K63.5 S/P colonoscopy Acute Z98.890 Colonic diverticular abscess Acute K57.20 Abscess of rectum Acute K61.1 History of back surgery Acute Z98.890 Medical History Medical History Mood disorder Pleural effusion Acute deep vein thrombosis (DVT) of left lower extremity Pulmonary emboli Tobacco Smoking/Tobacco Use Status: Current every day Tobacco Type: cigarettes Smoking packs per day: 1 Smoking cigarettes per day: 20.0 Passive smoking exposure: Yes Second hand exposure: Yes Alcohol Alcohol Intake: current Alcohol intake frequency: a few times a week Alcohol type: beer Substance Use Substance use: Occasionally Substance use type: marijuana Details: inhaled; last use was a few days ago. Vital Signs and Lab Results Vital Signs Most Recent Vital Signs in EMR: Most Recent Vital Signs Temp Pulse Resp BP Pulse Ox 36.5 C 85 12 114/88 98 11/16/25 09:23 11/16/25 09:23 11/16/25 09:23 11/16/25 09:23 11/16/25 09:23 Anesthesia Assessment and Plan Anesthesia History Personal History: No History of Anesthesia Complications Family History: No Family History of Anesthesia Complications Exercise Tolerance Exercise Tolerance: Metabolic Equivalents>4 Pertinent Negatives Pertinent Negatives: No Symptoms of GERD Cardiac & Pulmonary Exam Cardiac Exam: Normal S1/S2 Heart Sounds Pulmonary Exam: Clear Bilateral Breath Sounds Implantable Cardiac Device Does patient have a Pacemaker or an ICD?: No Airway Exam Known Difficult Airway: No Mallampati Class: 2 Mouth Opening: Normal (> 3cm) Thyromental Distance: Greater than 3 cm Neck Range of Motion: Full ROM Neck Circumference: Normal Teeth Condition: Generalized Poor Dentition ASA Classification ASA Score: ASA 2 Emergency Case?: No NPO Status NPO Status: NPO Clears >2 hours, Solids >8 hours Anesthesia Plan Resuscitation Status: Full Code Anesthesia Technique: General Anesthesia Airway Planned: Natural Airway Monitors Used: Standard Monitors
--- NOTE | 2025-11-16 10:59 | PDOC.DSDIS_ITS ---
Date of service: 11/16/25 Discharge Plan Disposition Patient Disposition: Home Condition: Stable Discharge Details Attending Provider: Dulce Maria Gama Primary Care Provider: Jeremy Hinton Recommendations for Follow Up Recommended tests to be ordered by follow up provider: Recommend pill cam study if biopsies do not show celiac sprue. Home Meds and New Rx's Prescriptions: Continued albuterol sulfate 90 mcg/actuation HFA aerosol inhaler 2 puff inhalation Q6H PRN (Reason: shortness of breath or wheezing) Qty: 8.5 12RF quetiapine 50 mg tablet extended release 24 hr 100 mg PO QHS Qty: 60 1RF Discontinued bisacodyl [Dulcolax (bisacodyl)] 5 mg tablet,delayed release (DR/EC) 5 mg PO ONCE Qty: 4 0RF Rx Instructions: take per colonoscopy instructions polyethylene glycol 3350 17 gram/dose powder 238 g PO ONCE Qty: 238 0RF Rx Instructions: take per colonoscopy instructions Discharge Instructions Additional Instructions: EGD shows irritation of the upper digestive tract. No clear ulcer, no clear cause for bleeding. Biopsies obtained and I will let you know if they show us any clear cause for your dark stools. Start taking new prescription acid sacha to heal these areas. Colonoscopy is unremarkable for a cause for symptoms. Biopsies obtained for microscopic colitis evaluation. Given that there are no findings today on upper or lower endoscopy that clearly explain the dark stools, I recommend a pill cam study if the biopsies are unremarkable. This is not available at [facility], will defer to PCP to order and obtain this. High fiber diet or fiber supplement recommended for diverticulosis. Diverticula may bleed, but would not be expected to cause daily melena. Next screening colonoscopy will be due in 10 years. Stand Alone Forms: Portal Information Activity:: Activity as Tolerated Diet:: As Tolerated Discharge Orders Discharge Orders: Discharge Order (Routine); Ordered 11/16/25 Ordered By: Dulce Maria Gama DS: Diagnosis Discharge Diagnosis (1) Melena: Status: Acute (2) Change in stool habits: Status: Acute (3) History of adenomatous polyp of colon: Status: Acute (4) Duodenitis: Status: Acute (5) Gastritis: Status: Acute (6) Esophagitis: Status: Acute
--- NOTE | 2025-11-16 11:01 | ENDO_ITS ---
Date of service: 11/16/25 Time of Service: 11:10 Endoscopy Report DATE OF PROCEDURE: 11/16/25 PRE-OP DIAGNOSIS: Melena, change in bowel habits POST-OP DIAGNOSIS: other (1. duodenitis. 2. fundal gastritis. 3. esophagitis. ) PROCEDURE: EGD with biopsy SURGEON: Dulce Maria Gama ANESTHESIA TYPE: General:No Airway ESTIMATED BLOOD LOSS: 2 PATHOLOGY: other (1. duodenum biopsy. 2. antrum biopsy. 3. fundus biopsy. 4. distal esophagus biopsy) COMPLICATIONS: None DISPOSITION: same day INDICATIONS: Evaluation of upper digestive system for epigastric pain source/cause PROCEDURE DESCRIPTION: Lubricated endoscope was passed through a bite block into the second portion of the duodenum. The endoscope was withdrawn and the duodenum stomach and esophageal mucosa examined. The duodenum appeared chronically inflamed. There is no ulcer or erosion. The antrum appears normal. The fundus appears normal overall with one area near the GE junction with inflammatory change and specks of old blood. This area was biopsied. The cardia appears normal and there is no evidence of hiatal hernia upon retroflexion. The distal esophagus shows evidence of chronic inflammation without ulceration varices or candidiasis. The Z-line is regular and there is no evidence of Parkinson's esophagus. Remainder of the esophagus appears normal Cold forceps biopsies obtained from the duodenum, the antrum, the fundus, and the distal esophagus for microscopic evaluation for celiac sprue, H. pylori, Barretts esophagitis. The upper digestive system was desufflated and the endoscope withdrawn. No com plications. Assessment and plan: Moderate duodenitis Focal fundus gastritis with bleeding. Mild to moderate esophagitis. No ulcer or major findings otherwise to explain melena. Duodenitis and the fundus area are possible bleeding sources. Duodenum, antral, fundic and esophageal biopsies will determine next steps in care. recommend PPI daily. Office follow up in 2-4 weeks.
--- NOTE | 2025-11-16 11:06 | BOWEL_PTH ---
PATIENT: Virgil Langford LOC: [facility] U#:[id number] AGE/SX: 60/M ROOM: RE11/16/[address]: Dulce Maria Gama MD : 1965 BED: DIS: 11/16/2025 SPEC #: [id number] RECD: 11/16/25 13:16 STATUS: MATILDA Priyanka #: [id number] SARAH: 11/16/25 11:[address]: Dulce Maria Gama DEPT: Surgical Specimen RECD BY: Rosalva Cabrales ENTERED: 11/16/25 13:18 SP TYPE: Bowel OTHR DR: Jeremy Hinton, DELIVERY TECHNICIAN Tissues: 1 - BIOPSY BOWEL 2 - STOMACH BIOPSY 3 - STOMACH BIOPSY 4 - ESOPHAGUS BIOPSY 5 - BIOPSY BOWEL 6 - BIOPSY BOWEL 7 - BIOPSY BOWEL 8 - BIOPSY BOWEL 9 - BIOPSY BOWEL Procedures: GROSS AND MICRO LEVEL 4 Comments: [id number]
--- NOTE | 2025-11-16 11:34 | COLE_ITS ---
Date of service: 11/16/25 Time of Service: 11:34 Colonoscopy Report Date of procedure: 11/16/25 Pre-op diagnosis general: melena, change in bowel habits Post-op diagnosis procedure note: same (Diverticulosis of sigmoid colon) Procedure: Colonoscopy with biopsy Surgeon: Dulce Maria Gama Anesthesia Type: General:No Airway Estimated blood loss (mL): 2 Pathology: other (1. Terminal ileum biopsy. 2. ascending colon biopsy. 3. transverse colon biopsy. 4. descending colon biopsy. 5. Rectum biopsy) Complications: None Prep: Miralax/Dulcolax (Good) Procedure Description: Informed consent was obtained and the patient was taken to the procedure area. The patient was placed in left lateral decubitus position on the procedure table. Timeout was performed. Anesthesia was induced. A lubricated colonoscope was inserted through the anus and passed to the cecum. The cecum was identified by the ileocecal valve and the appendiceal orifice. The scope was then slowly withdrawn and the colonic and rectal mucosa examined. TI intubated and examined. It appears normal. There are no colon or rectal mass lesions, polyps, AVMs. There is no inflammatory change. Severe sigmoid diverticulosis was seen. The scope was retroflexed in the anorectal junction examined. Uncomplicated internal hemorrhoids present. Cold forceps biopsies obtained for evaluation for microscopic colitis. Biopsies obtained from terminal ileum, ascending colon, transverse colon, descending colon and rectum. Assessment and plan: Melena Change in bowel habits (including diarrhea) Sigmoid diverticulosis Colonoscopy is unremarkable for a cause for symptoms. Biopsies obtained for microscopic colitis evaluation. Given that there are no findings today on upper or lower endoscopy that clearly explain melena, I recommend a pill cam study. This is not available at [facility], will defer to PCP to order and obtain this. High fiber diet or fiber supplement recommended for diverticulosis. Diverticula may bleed, but would not be expected to cause daily melena. Next screening colonoscopy will be due in 10 years.
[2025-11-16 11:38] VITALS: BP 93/63; PULSE 73; RESP 18; TEMP 36.6; O2SAT 93
--- NOTE | 2025-11-16 11:47 | W.ANESPOSTOP ---
Postoperative Evaluation Date, Time and Location Date Performed: 11/16/25 Time Performed: 11:47 Patient Location: Day Surgery Unit Vital Signs Most Recent Imported Vital Signs: Most Recent Vital Signs Temp Pulse Resp BP Pulse Ox 36.6 C 73 18 93/63 L 93 11/16/25 11:38 11/16/25 11:38 11/16/25 11:38 11/16/25 11:38 11/16/25 11:38 Pain Score Most Recent Pain Score: Most Recent Pain Score Pain Level 0 11/16/25 11:38 Assessment Mental Status: Awake (Alert & Oriented to Patient Baseline) Airway and Respiratory Function: Patent airway with normal (patient baseline) respiratory exam Cardiovascular Function: Hemodynamically Stable Hydration Status: Adequately Hydrated Nausea & Vomiting: No Nausea or Vomiting Pain: Pt. Denies Any Pain Peripheral Nerve Block: Patient did not receive a nerve block
[2025-11-16 11:57] VITALS: BP 120/77; PULSE 85; RESP 18; TEMP 36.6; O2SAT 96
== END 2025-11-16 12:20 | disposition home or self-care (01) ==
PROVIDERS: PCP Nurse Practitioner Family; Visit Provider Surgery
PROC: (CPT 45380; principal; 2025-11-16 10:30)
DX: K92.1 Melena (principal); R19.4 Change in bowel habit; Z86.0101 Personal history of adenomatous and serrated colon polyps; K29.80 Duodenitis without bleeding; K29.70 Gastritis, unspecified, without bleeding; K20.90 Esophagitis, unspecified without bleeding; K22.89 Other specified disease of esophagus
CPT/HCPCS: 45380; 43239; 88305; J2003; J2704